=== PATIENT | male | born 1985 | race Caucasian/White ===

== ENCOUNTER 2019-11-08 16:20 | Observation (INO) | payer SELFPAY ==
[~2019-11-08] VITALS: Ht 175.3 cm; Wt 95.1 kg
--- NOTE | 2019-11-08 21:36 | NUR ---
RECEIVED REPORT FROM BRIDGET DE JESUS.
--- NOTE | 2019-11-08 21:46 | NUR ---
PT ARRIVED TO THE FLOOR VIA STRETCHER AND AMBULATED OVER TO THE BED WITHOUT ASSISTANCE. VANCO IS INFUSING AT THIS TIME. ORIENTED PT TO CALL LIGHT. PRIMARY RN ENE IS CURRENTLY IN THE ROOM WITH THE PT AT THIS TIME.
--- NOTE | 2019-11-08 22:00 | NUR ---
VITALS DONE AND CHARTED. FRESH ICE WATER GIVEN. WEIGHT DONE. BEDSIDE TABLE AND CALL LIGHT IN REACH.
--- NOTE | 2019-11-08 23:00 | NUR ---
pt ARRIVED ON FLOOR 214. ABLE TO TRANSFER SELF TO BED. VANCO INFUSING. IV PATENT. ADMISSION INFORMATION GATHERED, ASSESSMENT DONE. pt ALERT AND ORIENT. LLE RED AND WARM COMPARED TO RLE. PITTING EDEMA. pt REQUESTED PRN FOR 4/10 PAIN, GIVEN (SEE MAR). ALL QUESTIONS ANSWERED CONCERNING DTaP INJECTION, VIS GIVEN. pt UP TO VOID AND BACK TO BED. LIMPED WHILE AMBULATING. pt INSTRUCTED TO CALL FOR ASSISTANCE TO AMBULATE. URINAL AT BEDSIDE. PROVIDED WITH SANDWICH BOX AND PHONE. VANCO INFUSION COMPLETED. IVF INFUSING PER ORDERS. CALL LIGHT WITHIN REACH.
--- NOTE | 2019-11-09 01:30 | NUR ---
IN TO DO VITALS AND ASSESSMENT. pt HAD VOID IN URINAL, EMPTIED. NO REQUESTS AT THIS TIME. STATED PAIN "IS OKAY RIGHT NOW" ASSESSMENT DONE. LLE WARMER THAN RLE. NO CHANGE IN SWELLING. CALL LIGHT WITHIN REACH.
--- NOTE | 2019-11-09 04:00 | NUR ---
ROUNDED ON pt. pt STATED "I'M HAVING TROUBLE GETTING COMFORTABLE" OFFERED PILLOWS AND BLANKETS, pt REFUSED. NO REQUESTS AT THIS TIME. CALL LIGHT WITHIN REACH.
--- NOTE | 2019-11-09 04:39 | NUR ---
pt ARRIVED THIS SHIFT. IV ABX & IVF. PRN PAIN MEDS X1. LLE ELEVATED, AREA MARKED. NPO @ MIDNIGHT. USES CALL LIGHT APPROPRIATELY.
--- NOTE | 2019-11-09 06:24 | NUR ---
pt LAYING IN BED. REPORTED HE DID NOT SLEEP WELL. STATED "THE PAIN COMES AND GOES DEPENDING ON IF I AM MOVING" REFUSED PAIN MEDS AT THIS TIME. VITALS AND I&O RECORDED. IV ABX INFUSING. NO REQUESTS AT THIS TIME. CALL LIGHT WITHIN REACH.
--- NOTE | 2019-11-09 07:56 | NUR ---
PATIENT LYING IN BED AWAKE. RESPIRATIONS EQUAL AND UNLABORED ON RA. NO REPORTS OF PAIN. CALL LIGHT IN REACH.
--- NOTE | 2019-11-09 09:37 | NUR ---
PT BROUGHT TO DAY SURGERY ROOM [address] MOTA, CONSENT OBTAINED, LOCAL GIVEN FLUID ASPIRATED AND SENT TO LAB, MEGAN DECKER TOOK PT BACK TO MED SURG, REPORT TO DAREK GILL
--- NOTE | 2019-11-09 09:38 | NUR ---
CALL FROM [facility], OR CHARGE, PATIENT HAD ASPIRATION DONE BY DR. MOTA. DR. KARLY SORIANO FOR PATIENT TO HAVE REGULAR DIET.
--- NOTE | 2019-11-09 10:17 | NUR ---
MED REC COMPLETE. PATIENT STATES HE DOES NOT TAKE ANY ROUTINE MEDICATIONS. OCCASIONALLY TAKES OTC PAIN MEDICATION.
--- NOTE | 2019-11-09 10:23 | NUR ---
PATIENT SITTING UP IN BED AWAKE. RESPIRATIONS EQUAL AND UNLABORED. REPORTS 4/10 PAIN IN LLE. REQUESTING PAIN MEDICATION. PATIENTS BREAKFAST ARRIVED IN ROOM. FAMILY MEMBER IN ROOM. IV ABX STARTED. CALL LIGHT IN ROOM.
--- NOTE | 2019-11-09 13:06 | NUR ---
PATIENT LYING BED ASLEEP. RESPIRATIONS EQUAL AND UNLABORED. CALL LIGHT IN REACH. LR RUNNING AT 75ML/HR.
--- NOTE | 2019-11-09 15:29 | NUR ---
PT ASSISTED TO CHAIR. FEET SOAKING PER ORDER. PT REPORTING PAIN OF 09/28. LR AT 75 INFUSING AND VANCO STARTED. CALL LIGHT AND PERSONAL ITEMS WITHIN REACH.
--- NOTE | 2019-11-09 16:09 | NUR ---
PATIENT UP IN CHAIR SOAKING FEET. NURSE SCRUBBED PTS FEET WITH HIBICLENSE BRUSH. ABX INFUSING. PT TOLERATING WELL. RESPIRATIONS EQUAL AND UNLABORED ON RA. PT REPORTS PAIN 1/10 IN LLE. DENIES PAIN MEDICATION. CALL LIGHT IN REACH.
--- NOTE | 2019-11-09 17:18 | NUR ---
PT JUST COMPLETED SHOWER INDEPENDENTLY. BACK IN BED WITH DINNER. DENEIS PAIN. LR @75 RESTARTED. CALL LIGHT IN REACH. DENIES NEEDS.
--- NOTE | 2019-11-09 17:23 | NUR ---
PATIENT HAD ASPIRATION OF LLE PROCEDURE THIS MORNING. PATIENT INFORMED OF GOUT DX. RECIEVED SOLUMEDROL IV WHICH PATIENT REPORTS LOWERED PAIN TO 1/10. 2 PLUS EDEMA IN LLE. PATIENT TOOK A SHOWER AD TRUDY AND NURSE SOAKED FEET AND SCRUBBED WITH HIBICLEANSE. PATIENT EXPECTED TO DISCHARGE IN THE AM.
--- NOTE | 2019-11-09 19:03 | NUR ---
RECEIVED REPORT FROM BRIDGET RUBIN. pt RESTING IN BED. VISITORS AT BEDSIDE. REPORT PAIN IS "FINE" DEMONSTRATED ABILITY TO MOVE LEG, ELEVATED. WHITEBOARD UPDATED. POSSESSIONS AND CALL LIGHT WITHIN REACH.
--- NOTE | 2019-11-09 21:28 | NUR ---
IN TO DO ASSESSMENT. pt REPORTED PAIN 09/28 STATED "IT'S MUCH BETTER." LLE EDEMATOUS, ELEVATED. MEDICATIONS GIVEN (SEE MAR). UPDATED ON PLAN OF CARE. PROVIDED FOOD. NO FURTHER REQUESTS AT THIS TIME. CALL LIGHT WITHIN REACH.
--- NOTE | 2019-11-09 22:29 | NUR ---
IV ABX INFUSING. NO REQUESTS AT THIS TIME. pt RESTING IN BED. POSSESSIONS AND CALL LIGHT WITHIN REACH.
--- NOTE | 2019-11-10 00:20 | NUR ---
CALL LIGHT ON. pt REQUESTED "SOMETHING FOR HEARTBURN" NIO ENTERED. PRN MED GIVEN (SEE MAR). pt DENIES OTHER NEEDS AT THIS TIME. URINAL EMPTIED. CALL LIGHT AND POSSESSIONS WITHIN REACH.
--- NOTE | 2019-11-10 02:10 | NUR ---
ROUNDED ON pt. RESTING IN BED, RESPIRATIONS REGULAR. CALL LIGHT WITHIN REACH.
--- NOTE | 2019-11-10 04:06 | NUR ---
ROUNDED ON pt. RESTING WITH EYES CLOSED, RESPIRATIONS REGULAR AND UNLABORED. CALL LIGHT WITHIN REACH.
--- NOTE | 2019-11-10 06:20 | NUR ---
ASSESSMENT DONE. LLE IMPROVED IN COLOR AND DECREASED SWELLING. pt DENIES PAIN AT THIS TIME. IV ABX INFUSING PER ORDERS (SEE MAR). VITALS AND I&O RECORDED. FRESH WATER PROVIDED. CALL LIGHT WITHIN REACH.
--- NOTE | 2019-11-10 06:21 | NUR ---
pt RESTED MOST OF NIGHT. EDEMA IN LLE DECREASED, ELEVATED. HAS NOT REQUESTED PAIN MEDS. VOIDING QS. IVF AND IV ABX. TOLERATING A REGULAR DIET. ASPRIATION SITE COVERED WITH BANDAID. USES CALL LIGHT APPROPRIATELY.
--- NOTE | 2019-11-10 07:35 | NUR ---
PT SITTING UP ON SIDE OF BED, A&OX4. PT DENIES PAIN AND OR NEEDS. PERSONAL SUPPLIES AND CALL LIGHT WITHIN REACH. NO NEEDS AT THIS TIME.
[2019-11-10] MEDS ORDERED: INDOMETHACIN25 MG PO (08:19)
--- NOTE | 2019-11-10 11:09 | NUR ---
PT SLEEPING AT THIS TIME, RESP EVEN AND NON LABORED. PERSONAL SUPPLIES AND CALL LIGHT WITHIN REACH. WILL COME BACK IN LITTLE WHILE TO SEE IF PT IS AWAKE HE HAS DISCHARGE ORDERS.
== END 2019-11-10 12:40 | disposition home or self-care (01) ==
LOC: ED 16:20 → MS 16:22
PROVIDERS: ADMIT Internal Medicine
DX: M10.9 Gout, unspecified (principal); L03.116 Cellulitis of left lower limb; F17.200 Nicotine dependence, unspecified, uncomplicated; Z87.828 Personal history of other (healed) physical injury and trauma; Z88.0 Allergy status to penicillin; Z79.899 Other long term (current) drug therapy
CPT/HCPCS: 36415; 73702; 76882; 80048; 80053; 82945; 83605; 83735; 85025; 85610; 85651; 85810; 86431; 89051; 89060; 90471; 90715; 93971; 96361; 96366; 96367; 96375; 96376; 99284-25; G0378; J0696; J2930; J3370; J7060; J7121; Q9967

== ENCOUNTER 2020-01-31 20:30 | Inpatient (IN) | payer OTHER ==
[~2020-01-31] VITALS: Ht 175.3 cm; Wt 88.0 kg
--- OUTSIDE RECORDS SUMMARY | ~2020-01-31 | XMS | Encounter Summary ---
Demographics + + + | Address | [address] | | | [place] [address] | + + + | Home Phone | | + + + | Preferred Language | Unknown | + + + | Marital Status | Unknown | + + + | Hinduism Affiliation | Unknown | + + + | Race | Unknown | + + + | Ethnic Group | Unknown | + + + Author + + + | Author | [facility] | | | and [place] | + + + | Organization | [facility] | | | and [place] | + + + | Address | Unknown | + + + | Phone | Unavailable | + + + Support + + +---------+ + | Name | Relationship | Address | Phone | + + +---------+ + | Mirta Chamberlain | ECON | Unknown | | + + +---------+ + | Rachel Vanessa | ECON | Unknown | | + + +---------+ + Care Team Providers + +------+ + | Care Gas Leak Inspector Name | Role | Phone | + +------+ + | Chance Canales | PCP | | + +------+ + Encounter Details +--------+--------+ + + + | Date | Type | Department | Care Team | Description | +--------+--------+ + + + | 11/30/ | Intake | [facility] | | N/A | | 2019 | | [facility] [address] | | | | | | [facility] | | | | | | [place], [place] | | | | | | [address] | | | | | | [phone] | | | +--------+--------+ + + + Social History + +-------+ +--------+------+ | Tobacco Use | Types | Packs/Day | Years | Date | | | | | Used | | + +-------+ +--------+------+ | Never Assessed | | | | | + +-------+ +--------+------+ + + + | Sex Assigned at | Date Recorded | | | | + + + | Not on file | | + + + + + + + | Job Start Date | Occupation | Industry | + + + + | Not on file | Not on file | Not on file | + + + + + + + + | Travel History | Travel Start | Travel End | + + + + + + | No recent travel history available. | + + documented as of this encounter Plan of Treatment +--------+---------+ + + + | Date | Type | Specialty | Care Team | Description | +--------+---------+ + + + | 02/19/ | Office | Cardiology | Carol Landers | | | 2019 | Visit | | [address] | | | | | | [address] | | | | | | [address] [place], [place] | | | | | | [address] | | | | | | | | +--------+---------+ + + + documented as of this encounter Visit Diagnoses Not on filedocumented in this encounter Additional Health Concerns + + + + | Infection | Noted Time | Resolved Time | + + + + | Rule out COVID-19 | 12/02/2019 10:20 AM | 12/07/2019 2:43 PM | | | PDT | PDT | + + + + documented as of this encounter"
--- OUTSIDE RECORDS SUMMARY | ~2020-01-31 | XMS | Clinical Summary ---
Demographics + + + | Address | [address] | | | [place] [address] | + + + | Home Phone | | + + + | Preferred Language | Unknown | + + + | Marital Status | Unknown | + + + | Anabaptist Affiliation | Unknown | + + + | Race | Unknown | + + + | Ethnic Group | Unknown | + + + Author + + + | Author | [facility] | | | and [place] | + + + | Organization | [facility] | | | and [...] Team Providers + +------+ + | Care Electromechanical Equipment Tester Name | Role | Phone | + +------+ + | Chance Canales | PCP | | + +------+ + Allergies + + + + + + | Active Allergy | Reactions | Severity | Noted | Comments | | | | | Date | | + + + + + + | Penicillin G | Hives | Medium | 04/10/20 | | | | | | 20 | | + + + + + + Medications + + + +---------+------+------+-------+ | Medication | Sig | Dispensed | Refills | Star | End | Statu | | | | | | t | Date | s | | | | | | Date | | | + + + +---------+------+------+-------+ | albuterol 2.5 mg/3 | Take 3 mLs by | 360 | 1 | 04/1 | | Activ | | mL nebulizer | nebulization every | vial | | 0/20 | | e | | solution | hour as needed for | | | 20 | | | | | Wheezing or | | | | | | | | Shortness of Breath. | | | | | | + + + +---------+------+------+-------+ | ascorbic acid | Take 1 tablet by | 30 | 0 | 04/1 | | Activ | | (VITAMIN C) 500 mg | mouth Daily. | tablet | | /20 | | e | | tablet | | | | 20 | | | + + + +---------+------+------+-------+ +---+ + | | Additional | | | InformationPatient | | | not taking. Reported | | | on 01/23/2020 3:15 | | | PM | +---+ + + + +--------+---+------+---+-------+ | aspirin 81 mg | Chew and swallow 1 | 30 | 1 | 04 | | Activ | | chewable tablet | tablet Daily. | tablet | | 20 | | e | | | | | | 20 | | | + + +--------+---+------+---+-------+ +---+ + | | Additional | | | InformationPatient | | | not taking. Reported | | | on 01/23/2020 3:15 | | | PM | +---+ + + + +--------+---+------+---+-------+ | ferrous sulfate | Take 1 tablet by | 30 | 0 | 04/1 | | Activ | | 325 mg tablet | mouth daily (with | tablet | | 1/20 | | e | | | breakfast). | | | 20 | | | + + +--------+---+------+---+-------+ | oxyCODONE | Take 1 tablet by | 30 | 0 | 04/1 | | Activ | | (ROXICODONE) 5 mg | mouth every 6 hours | tablet | | 0/20 | | e | | tablet | as needed for Pain. | | | 20 | | | + + +--------+---+------+---+-------+ +---+ + | | Additional | | | InformationPatient | | | not taking. Reported | | | on 01/23/2020 3:15 | | | PM | +---+ + + + + +----+------+------+-------+ | warfarin | Take 1 tablet by | 30 | 11 | 04/1 | 04/1 | Activ | | (COUMADIN) 4 MG | mouth Daily. Take | tablet | | 0/20 | 0/20 | e | | tablet | Daily as directed to | | | 20 | 21 | | | | Keep INR between | | | | | | | | 2.5-3.5 for | | | | | | | | MECHANICAL mitral | | | | | | | | and Mechanical | | | | | | | | aortic valves. | | | | | | + + + +----+------+------+-------+ | metoprolol | Take 1 tablet by | 180 | 3 | 05/0 | | Activ | | succinate | mouth 2 times daily. | tablet | | 6/20 | | e | | (TOPROL-XL) 50 mg 24 | | | | 20 | | | | hr | | | | | | | | tabletIndications: | | | | | | | | Sinus tachycardia | | | | | | | + + + +----+------+------+-------+ | metoprolol | Take 1 tablet by | 90 | 1 | 04/1 | 05/0 | Disco | | tartrate (LOPRESSOR) | mouth 3 times daily. | tablet | | 0/20 | 6/20 | ntinu | | 37.5 mg tablet | | | | 20 | 20 | ed | + + + +----+------+------+-------+ | Vancomycin HCl in | Inject 1 g into the | [id number] | 0 | 04/1 | 05/0 | Expir | | NaCl (VANCOMYCIN IN | vein every 8 hours | mL | | 0/20 | 2/20 | ed | | SALINE) 1 g/250 mL | for 22 days. | | | 20 | 20 | | | IVPBIndications: | Indications: | | | | | | | Meningitis | Meningitis | | | | | | + + + +----+------+------+-------+ | metoprolol | take 3 tablets by | | 0 | 05/0 | 05/0 | Disco | | succinate | mouth once daily | | | 1/20 | 6/20 | ntinu | | (TOPROL-XL) 25 mg 24 | | | | 20 | 20 | ed | | hr tablet | | | | | | (Reor | | | | | | | | leandro) | + + + +----+------+------+-------+ Active Problems + + + | Problem | Noted Date | + + + | Muscular deconditioning | 01/14/2020 | + + + | Anticoagulated | 01/14/2020 | + + + + + | Overview: Due to mechanical heart valves | + + + + + | Tachycardia | 12/28/2019 | + + + | Severe protein-calorie malnutrition | 12/21/2019 | + + + | Pericardial effusion | 12/14/2019 | + + + + + | Overview: Added automatically from request for surgery | | [id number] | + + + + + | Encounter for observation for suspected exposure to other | 12/07/2019 | | biological agents ruled out | | + + + | Bacteremia due to other bacteria-Aerococcus urinae | 12/05/2019 | + + + | Anemia | 12/03/2019 | + + + | Thrombocytopenia | 12/03/2019 | + + + | Acute hypoxemic respiratory failure | 12/01/2019 | + + + | Metabolic acidosis | 12/01/2019 | + + + | Meningitis | 12/01/2019 | + + + | Endocarditis, unspecified chronicity, unspecified endocarditis | 12/01/2019 | | type | | + + + + + | Overview: Added automatically from request for surgery | | [id number] | + + + + + | Acute bacterial endocarditis | 12/01/2019 | + + + + + | Overview: Added automatically from request for surgery | | [id number] | + + + + + | Transient complete heart block | 12/01/2019 | + + + + + | Overview: Added automatically from request for surgery | | [id number] | + + Resolved Problems + + + + | Problem | Noted | Resolved | | | Date | Date | + + + + | Lactic acidosis | 12/01/19 | | | | 20 | 0 | + + + + Encounters +--------+ + + + + | Date | Type | Specialty | Care Team | Description | +--------+ + + + + | 01/22/ | Office | Cardiology | Froilan Miller | Complete heart block | | 2020 | Visit | | MD Bryson | ([facility]) (Primary Dx); | | | | | | Sinus tachycardia; | | | | | | Endocarditis, | | | | | | unspecified | | | | | | chronicity, | | | | | | unspecified | | | | | | endocarditis type | +--------+ + + + + | 01/14/ | Office | Infectious Diseases | Nicole Lamas | Pericardial effusion | | 2019 | Visit | | Madelyn Valentin MD | (Primary Dx); | | | | | | Bacteremia due to | | | | | | other | | | | | | bacteria-Aerococcus | | | | | | urinae; Acute | | | | | | bacterial | | | | | | endocarditis | +--------+ + + + + | 01/14/ | Office | Cardiothoracic | Hari Gonzalez | S/P AVR (Primary | | 2019 | Visit | Surgery | PA | Dx); S/P MVR (mitral | | | | | | valve replacement); | | | | | | H/O heart valve | | | | | | replacement with | | | | | | mechanical valve | +--------+ + + + + | 01/13/ | Telephone | Cardiothoracic | Harsh Goodman MD | Follow-up(Procedure) | 2019 | | Surgery | | (appointment | | | | | | confirmation ) | +--------+ + + + + | 12/30/ | Telephone | Cardiothoracic | Harsh Goodman MD | Follow-up(Procedure) | | 2019 | | Surgery | | (AVR/MVR f/u post 2 | | | | | | day discharge) | +--------+ + + + + | 12/13/ | Anesthesia | | Sergio Gan MD | | | 2019 | Event | | | | +--------+ + + + + | 12/13/ | Surgery | | Harsh Goodman MD | SUB-XYPHOID | | 2019 | | | | PERICARDIAL WINDOW, | | | | | | RIGHT TUBE | | | | | | THORACSTOMY | +--------+ + + + + | 12/11/ | Telephone | Radiology | Ally, Froilan | Pre-Op | | 2020 | | | MD Bryson | | +--------+ + + + + | 12/07/ | Anesthesia | | Zach Hemphill MD | | | 2019 | Event | | | | +--------+ + + + + | 12/07/ | Surgery | | Harsh Goodman MD | REPLACEMENT / REPAIR | | 2019 | | | | VALVE AORTIC, | | | | | | REPLACEMENT / REPAIR | | | | | | VALVE MITRAL | +--------+ + + + + | 11/30/ | Hospital | Internal Medicine | Vickey Cook | Acute bacterial | | 2019 - | Encounter | | MD Rex Alberts, | endocarditis | | | | | MD Harsh | (Primary Dx); Acute | | 12/27/ | | | | hypoxemic | | 2019 | | | | respiratory failure | | | | | | ([facility]); Lactic | | | | | | acidosis; Bilateral | | | | | | pulmonary | | | | | | infiltrates on CXR; | | | | | | ARDS (adult | | | | | | respiratory distress | | | | | | syndrome) ([facility]); | | | | | | Gram positive | | | | | | septicemia ([facility]); | | | | | | Endocarditis, | | | | | | unspecified | | | | | | chronicity, | | | | | | unspecified | | | | | | endocarditis type; | | | | | | BARTENDER infection; | | | | | | Endocarditis, | | | | | | unspecified | | | | | | chronicity, | | | | | | unspecified | | | | | | endocarditis type; | | | | | | Acute bacterial | | | | | | endocarditis; | | | | | | Complete heart block | | | | | | ([facility]); Transient | | | | | | complete heart block | | | | | | ([facility]); Transient | | | | | | complete heart block | | | | | | ([facility]); Pericardial | | | | | | effusion | +--------+ + + + + | 11/30/ | Intake | | | N/A | | 2020 | | | | | +--------+ + + + + from Last 3 Months Immunizations + + + + | Name | Administration Dates | Next Due | + + + + | DTP (PED) | 05/04/1988, 02/15/1985, 1983, | | | | 1983, 1983 | | + + + + | HEP B, 3 DOSE | 06/24/1998, 05/06/1998 | | | (ADULT) | | | + + + + | Hep B (PED/ADOL) 3 | 12/23/1998 | | | DOSE | | | + + + + | INFLUENZA, | 07/26/2007 | | | UNSPECIFIED | | | | FORMULATION | | | + + + + | MMR, 2 DOSE | 05/06/1998, 08/18/1984 | | | (PED/ADULT) | | | + + + + | POLIOVIRUS,OPV | 05/04/1988, 02/15/1985, 1983, | | | (LIVE) | 1983 | | + + + + | TD PF (2 LF TETANUS) | 05/06/1998 | | | (ADOL/ADULT) | | | + + + + | TDAP, (ADOL/ADULT) | 11/08/2019 | | + + + + Social History + +-------+ +--------+ + | Tobacco Use | Types | Packs/Day | Years | Date | | | | | Used | | + +-------+ +--------+ + | Former Smoker | | | | Quit: 01/15/2012 | + +-------+ +--------+ + + +---+---+---+ | Smokeless Tobacco: | | | | | Never Used | | | | + +---+---+---+ + + +---------+ + | Alcohol Use | Drinks/Week | oz/Week | Comments | + + +---------+ + | Not Currently | | | | + + +---------+ + + + + | Sex Assigned at [...] recent travel history available. | + + Last Filed Vital Signs + + + + + | Vital Sign | Reading | Time Taken | Comments | + + + + + | Blood Pressure | 121/60 | 01/23/2020 3:11 PM | | | | | PDT | | + + + + + | Pulse | 134 | 01/23/2020 3:11 PM | | | | | PDT | | + + + + + | Temperature | 36.9 C (98.4 F) | 01/15/2020 3:15 PM | | | | | PDT | | + + + + + | Respiratory Rate | 16 | 01/15/2020 3:15 PM | | | | | PDT | | + + + + + | Oxygen Saturation | 100% | 01/23/2020 3:11 PM | | | | | PDT | | + + + + + | Inhaled Oxygen | - | - | | | Concentration | | | | + + + + + | Weight | 86.8 kg (191 lb 6.4 | 01/23/2020 3:11 PM | | | | oz) | PDT | | + + + + + | Height | 175.3 cm (5' 9") | 01/23/2020 3:11 PM | | | | | PDT | | + + + + + | Body Mass Index | 28.26 | 01/23/2020 3:11 PM | | | | | PDT | | + + + + + Plan of Treatment +--------+---------+ + + + | Date | Type | Specialty | Care Team | Description | +--------+---------+ + + + | 02/19/ | Office | Cardiology | Carol Landers | | | 2019 | Visit | | [address] | | | | | | [address] | | | | | | [address] [place], [place] | | | | | | [address] | | | | | | | | +--------+---------+ + + + + + + + + | Health Maintenance | Due Date | Last Done | Comments | + + + + + | Vaccine: Influenza | | 07/26/2007 | | | (Season Ended) | 0 | | | + + + + + | Vaccine: | | 11/08/2019, 05/06/1998, | | | Dtap/Tdap/Td (7 - | 0 | 05/04/1988, Additional history | | | Td) | | exists | | + + + + + Implants + +--------+-------+ +--------+--------+--------+ | Implanted | Type | Area | Manufacture | Device | Shelf | Model | | | | | r | | Expira | / | | | | | | Identi | tion | Serial | | | | | | fier | Date | / Lot | + +--------+-------+ +--------+--------+--------+ | Valve Mtrl On-X /29mm - | Mechan | N/A: | ON-X LIFE | | 06/08/ | ONXM-2 | | [id number]: Qty: 1 on | ical | Heart | TECHNOLOGIE | | 2022 | 04/16 | | 12/08/2019 by Harsh Goodman, | Heart | | S INC - | | | /[id number] | | MD at [facility] | Valve | | ONXL | | | 04 /NA | | [facility] | | | | | | | + +--------+-------+ +--------+--------+--------+ | Valve [place] Rot 23mm - | Mechan | N/A: | [facility] | | 06/30/ | [id number] | | [id number]: Qty: 1 on | ical | Heart | MEDICAL - | | 2019 | -756 | | 12/08/2019 by Harsh Goodman, | Heart | | STJU | | | /[id number] | | MD at [facility] | Valve | | | | | 000 | | [facility] | | | | | | /NA | + +--------+-------+ +--------+--------+--------+ | Patch Pericardial 2x5cm - | | | [facility] | | 12/31/ | [id number] | | SnaImplanted: Qty: 1 on | | | MEDICAL - | | 2019 | /NA | | 12/08/2019 by Harsh Goodman, | | | STJU | | | /[id number] | | MD at [facility] | | | | | | 227 | | [facility] | | | | | | | + +--------+-------+ +--------+--------+--------+ Procedures + +--------+ + + + | Procedure Name | Priori | Date/Time | Associated Diagnosis | Comments | | | ty | | | | + +--------+ + + + | ECG 12 LEAD | Routin | 01/23/2020 | Complete heart | Results for this | | | e | 3:16 PM | block (HCC) | procedure are in the | | | | PDT | | results section. | + +--------+ + + + | LABS - EXTERNAL SCAN | | 12/29/2019 | | Results for this | | | | 12:00 AM | | procedure are in the | | | | PDT | | results section. | + +--------+ + + + | VANCOMYCIN, TROUGH | Routin | 12/28/2019 | | Results for this | | | e | 5:09 AM | | procedure are in the | | | | PDT | | results section. | + +--------+ + + + | PROTIME INR | Routin | 12/28/2019 | | Results for this | | | e | 5:09 AM | | procedure are in the | | | | PDT | | results section. | + +--------+ + + + | PHOSPHORUS | HARRY | 12/28/2019 | | Results for this | | | | 5:09 AM | | procedure are in the | | | | PDT | | results section. | + +--------+ + + + | MAGNESIUM | HARRY | 12/28/2019 | | Results for this | | | | 5:09 AM | | procedure are in the | | | | PDT | | results section. | + +--------+ + + + | CBC WITH | HARRY | 12/28/2019 | | Results for this | | DIFFERENTIAL | | 5:09 AM | | procedure are in the | | | | PDT | | results section. | + +--------+ + + + | BASIC METABOLIC | HARRY | 12/28/2019 | | Results for this | | PANEL | | 5:09 AM | | procedure are in the | | | | PDT | | results section. | + +--------+ + + + | MAGNESIUM | STAT | 12/27/2019 | | Results for this | | | | 2:16 PM | | procedure are in the | | | | PDT | | results section. | + +--------+ + + + | POTASSIUM | STAT | 12/27/2019 | | Results for this | | | | 2:16 PM | | procedure are in the | | | | PDT | | results section. | + +--------+ + + + | VANCOMYCIN, TROUGH | HARRY | 12/27/2019 | | Results for this | | | | 4:18 AM | | procedure are in the | | | | PDT | | results section. | + +--------+ + + + | PTT | STAT | 12/27/2019 | | Results for this | | | | 4:18 AM | | procedure are in the | | | | PDT | | results section. | + +--------+ + + + | PROTIME INR | Routin | 12/27/2019 | | Results for this | | | e | 4:18 AM | | procedure are in the | | | | PDT | | results section. | + +--------+ + + + | PHOSPHORUS | HARRY | 12/27/2019 | | Results for this | | | | 4:18 AM | | procedure are in the | | | | PDT | | results section. | + +--------+ + + + | MAGNESIUM | HARRY | 12/27/2019 | | Results for this | | | | 4:18 AM | | procedure are in the | | | | PDT | | results section. | + +--------+ + + + | CBC WITH | HARRY | 12/27/2019 | | Results for this | | DIFFERENTIAL | | 4:18 AM | | procedure are in the | | | | PDT | | results section. | + +--------+ + + + | BASIC METABOLIC | HARRY | 12/27/2019 | | Results for this | | PANEL | | 4:18 AM | | procedure are in the | | | | PDT | | results section. | + +--------+ + + + | PTT | STAT | 12/26/2019 | | Results for this | | | | 5:48 PM | | procedure are in the | | | | PDT | | results section. | + +--------+ + + + | PTT | STAT | 12/26/2019 | | Results for this | | | | 11:56 AM | | procedure are in the | | | | PDT | | results section. | + +--------+ + + + | MAGNESIUM | STAT | 12/26/2019 | | Results for this | | | | 11:49 AM | | procedure are in the | | | | PDT | | results section. | + +--------+ + + + | POTASSIUM | Routin | 12/26/2019 | | Results for this | | | e | 11:49 AM | | procedure are in the | | | | PDT | | results section. | + +--------+ + + + | VANCOMYCIN, TROUGH | Routin | 12/26/2019 | | Results for this | | | e | 5:36 AM | | procedure are in the | | | | PDT | | results section. | + +--------+ + + + | PTT | STAT | 12/26/2019 | | Results for this | | | | 5:36 AM | | procedure are in the | | | | PDT | | results section. | + +--------+ + + + | PROTIME INR | Routin | 12/26/2019 | | Results for this | | | e | 5:36 AM | | procedure are in the | | | | PDT | | results section. | + +--------+ + + + | PHOSPHORUS | HARRY | 12/26/2019 | | Results for this | | | | 5:36 AM | | procedure are in the | | | | PDT | | results section. | + +--------+ + + + | MAGNESIUM | HARRY | 12/26/2019 | | Results for this | | | | 5:36 AM | | procedure are in the | | | | PDT | | results section. | + +--------+ + + + | CBC WITH | HARRY | 12/26/2019 | | Results for this | | DIFFERENTIAL | | 5:36 AM | | procedure are in the | | | | PDT | | results section. | + +--------+ + + + | BASIC METABOLIC | HARRY | 12/26/2019 | | Results for this | | PANEL | | 5:36 AM | | procedure are in the | | | | PDT | | results section. | + +--------+ + + + | PTT | Routin | 12/25/2019 | | Results for this | | | e | 9:03 PM | | procedure are in the | | | | PDT | | results section. | + +--------+ + + + | MAGNESIUM | Routin | 12/25/2019 | | Results for this | | | e | 1:22 PM | | procedure are in the | | | | PDT | | results section. | + +--------+ + + + | POTASSIUM | Routin | 12/25/2019 | | Results for this | | | e | 1:22 PM | | procedure are in the | | | | PDT | | results section. | + +--------+ + + + | PTT | STAT | 12/25/2019 | | Results for this | | | | 1:22 PM | | procedure are in the | | | | PDT | | results section. | + +--------+ + + + | ECHO LIMITED | Routin | 12/25/2019 | | Results for this | | | e | 9:04 AM | | procedure are in the | | | | PDT | | results section. | + +--------+ + + + | XR CHEST PA AND | Routin | 12/25/2019 | | Results for this | | LATERAL | e | 7:45 AM | | procedure are in the | | | | PDT | | results section. | + +--------+ + + + | VANCOMYCIN, TROUGH | Add-On | 12/25/2019 | | Results for this | | | | 5:20 AM | | procedure are in the | | | | PDT | | results section. | + +--------+ + + + | PTT | Routin | 12/25/2019 | | Results for this | | | e | 5:20 AM | | procedure are in the | | | | PDT | | results section. | + +--------+ + + + | PROTIME INR | Routin | 12/25/2019 | | Results for this | | | e | 5:20 AM | | procedure are in the | | | | PDT | | results section. | + +--------+ + + + | PHOSPHORUS | HARRY | 12/25/2019 | | Results for this | | | | 5:20 AM | | procedure are in the | | | | PDT | | results section. | + +--------+ + + + | MAGNESIUM | HARRY | 12/25/2019 | | Results for this | | | | 5:20 AM | | procedure are in the | | | | PDT | | results section. | + +--------+ + + + | CBC WITH | HARRY | 12/25/2019 | | Results for this | | DIFFERENTIAL | | 5:20 AM | | procedure are in the | | | | PDT | | results section. | + +--------+ + + + | BASIC METABOLIC | HARRY | 12/25/2019 | | Results for this | | PANEL | | 5:20 AM | | procedure are in the | | | | PDT | | results section. | + +--------+ + + + | POTASSIUM | Timed | 12/24/2019 | | Results for this | | | | 9:03 AM | | procedure are in the | | | | PDT | | results section. | + +--------+ + + + | MAGNESIUM | Timed | 12/24/2019 | | Results for this | | | | 9:03 AM | | procedure are in the | | | | PDT | | results section. | + +--------+ + + + | VANCOMYCIN, TROUGH | HARRY | 12/24/2019 | | Results for this | | | | 5:44 AM | | procedure are in the | | | | PDT | | results section. | + +--------+ + + + | XR CHEST AP PORTABLE | Routin | 12/24/2019 | | Results for this | | | e | 5:30 AM | | procedure are in the | | | | PDT | | results section. | + +--------+ + + + | PTT | Routin | 12/24/2019 | | Results for this | | | e | 4:09 AM | | procedure are in the | | | | PDT | | results section. | + +--------+ + + + | PROTIME INR | Routin | 12/24/2019 | | Results for this | | | e | 4:09 AM | | procedure are in the | | | | PDT | | results section. | + +--------+ + + + | PHOSPHORUS | HARRY | 12/24/2019 | | Results for this | | | | 4:09 AM | | procedure are in the | | | | PDT | | results section. | + +--------+ + + + | MAGNESIUM | HARRY | 12/24/2019 | | Results for this | | | | 4:09 AM | | procedure are in the | | | | PDT | | results section. | + +--------+ + + + | CBC WITH | HARRY | 12/24/2019 | | Results for this | | DIFFERENTIAL | | 4:09 AM | | procedure are in the | | | | PDT | | results section. | + +--------+ + + + | BASIC METABOLIC | HARRY | 12/24/2019 | | Results for this | | PANEL | | 4:09 AM | | procedure are in the | | | | PDT | | results section. | + +--------+ + + + | XR CHEST AP PORTABLE | Routin | 12/23/2019 | | Results for this | | | e | 6:03 AM | | procedure are in the | | | | PDT | | results section. | + +--------+ + + + | VANCOMYCIN, TROUGH | HARRY | 12/23/2019 | | Results for this | | | | 5:12 AM | | procedure are in the | | | | PDT | | results section. | + +--------+ + + + | PTT | Routin | 12/23/2019 | | Results for this | | | e | 3:48 AM | | procedure are in the | | | | PDT | | results section. | + +--------+ + + + | PROTIME INR | Routin | 12/23/2019 | | Results for this | | | e | 3:48 AM | | procedure are in the | | | | PDT | | results section. | + +--------+ + + + | PHOSPHORUS | HARRY | 12/23/2019 | | Results for this | | | | 3:48 AM | | procedure are in the | | | | PDT | | results section. | + +--------+ + + + | MAGNESIUM | HARRY | 12/23/2019 | | Results for this | | | | 3:48 AM | | procedure are in the | | | | PDT | | results section. | + +--------+ + + + | CBC WITH | HARRY | 12/23/2019 | | Results for this | | DIFFERENTIAL | | 3:48 AM | | procedure are in the | | | | PDT | | results section. | + +--------+ + + + | BASIC METABOLIC | HARRY | 12/23/2019 | | Results for this | | PANEL | | 3:48 AM | | procedure are in the | | | | PDT | | results section. | + +--------+ + + + | PTT | Routin | 12/22/2019 | | Results for this | | | e | 9:26 PM | | procedure are in the | | | | PDT | | results section. | + +--------+ + + + | POTASSIUM | Routin | 12/22/2019 | | Results for this | | | e | 2:58 PM | | procedure are in the | | | | PDT | | results section. | + +--------+ + + + | MAGNESIUM | Routin | 12/22/2019 | | Results for this | | | e | 2:58 PM | | procedure are in the | | | | PDT | | results section. | + +--------+ + + + | PTT | Routin | 12/22/2019 | | Results for this | | | e | 2:58 PM | | procedure are in the | | | | PDT | | results section. | + +--------+ + + + | PHOSPHORUS | Routin | 12/22/2019 | | Results for this | | | e | 6:14 AM | | procedure are in the | | | | PDT | | results section. | + +--------+ + + + | BASIC METABOLIC | Routin | 12/22/2019 | | Results for this | | PANEL | e | 6:14 AM | | procedure are in the | | | | PDT | | results section. | + +--------+ + + + | PTT | STAT | 12/22/2019 | | Results for this | | | | 6:14 AM | | procedure are in the | | | | PDT | | results section. | + +--------+ + + + | PROTIME INR | Routin | 12/22/2019 | | Results for this | | | e | 6:14 AM | | procedure are in the | | | | PDT | | results section. | + +--------+ + + + | MAGNESIUM | Routin | 12/22/2019 | | Results for this | | | e | 6:14 AM | | procedure are in the | | | | PDT | | results section. | + +--------+ + + + | CBC WITH | Routin | 12/22/2019 | | Results for this | | DIFFERENTIAL | e | 6:14 AM | | procedure are in the | | | | PDT | | results section. | + +--------+ + + + | XR CHEST AP PORTABLE | Routin | 12/22/2019 | | Results for this | | | e | 5:47 AM | | procedure are in the | | | | PDT | | results section. | + +--------+ + + + | PTT | STAT | 12/21/2019 | | Results for this | | | | 9:58 PM | | procedure are in the | | | | PDT | | results section. | + +--------+ + + + | PTT | STAT | 12/21/2019 | | Results for this | | | | 2:24 PM | | procedure are in the | | | | PDT | | results section. | + +--------+ + + + | POTASSIUM | STAT | 12/21/2019 | | Results for this | | | | 9:37 AM | | procedure are in the | | | | PDT | | results section. | + +--------+ + + + | XR CHEST AP PORTABLE | Routin | 12/21/2019 | | Results for this | | | e | 5:37 AM | | procedure are in the | | | | PDT | | results section. | + +--------+ + + + | DEXTER, TROUGH | [facility] | 12/21/2019 | | Results for this | | | | 4:53 AM | | procedure are in the | | | | PDT | | results section. | + +--------+ + + + | PROTIME INR | Routin | 12/21/2019 | | Results for this | | | e | 4:53 AM | | procedure are in the | | | | PDT | | results section. | + +--------+ + + + | PHOSPHORUS | [facility] | 12/21/2019 | | Results for this | | | | 4:53 AM | | procedure are in the | | | | PDT | | results section. | + +--------+ + + + | MAGNESIUM | [facility] | 12/21/2019 | | Results for this | | | | 4:53 AM | | procedure are in the | | | | PDT | | results section. | + +--------+ + + + | CBC WITH | [facility] | 12/21/2019 | | Results for this | | DIFFERENTIAL | | 4:53 AM | | procedure are in the | | | | PDT | | results section. | + +--------+ + + + | BASIC METABOLIC | [facility] | 12/21/2019 | | Results for this | | PANEL | | 4:53 AM | | procedure are in the | | | | PDT | | results section. | + +--------+ + + + | POTASSIUM | STAT | 12/20/2019 | | Results for this | | | | 11:46 AM | | procedure are in the | | | | PDT | | results section. | + +--------+ + + + | PTT | STAT | 12/20/2019 | | Results for this | | | | 11:46 AM | | procedure are in the | | | | PDT | | results section. | + +--------+ + + + | FL VIDEO SWALLOW W | Routin | 12/20/2019 | | Results for this | | SPEECH | e | 11:30 AM | | procedure are in the | | | | PDT | | results section. | + +--------+ + + + | XR CHEST AP PORTABLE | Routin | 12/20/2019 | | Results for this | | | e | 5:12 AM | | procedure are in the | | | | PDT | | results section. | + +--------+ + + + | PTT | STAT | 12/20/2019 | | Results for this | | | | 2:58 AM | | procedure are in the | | | | PDT | | results section. | + +--------+ + + + | PROTIME INR | Routin | 12/20/2019 | | Results for this | | | e | 2:58 AM | | procedure are in the | | | | PDT | | results section. | + +--------+ + + + | PHOSPHORUS | [facility] | 12/20/2019 | | Results for this | | | | 2:58 AM | | procedure are in the | | | | PDT | | results section. | + +--------+ + + + | MAGNESIUM | [facility] | 12/20/2019 | | Results for this | | | | 2:58 AM | | procedure are in the | | | | PDT | | results section. | + +--------+ + + + | CBC WITH | [facility] | 12/20/2019 | | Results for this | | DIFFERENTIAL | | 2:58 AM | | procedure are in the | | | | PDT | | results section. | + +--------+ + + + | BASIC METABOLIC | [facility] | 12/20/2019 | | Results for this | | PANEL | | 2:58 AM | | procedure are in the | | | | PDT | | results section. | + +--------+ + + + | PTT | STAT | 12/19/2019 | | Results for this | | | | 8:52 PM | | procedure are in the | | | | PDT | | results section. | + +--------+ + + + | PTT | STAT | 12/19/2019 | | Results for this | | | | 11:34 AM | | procedure are in the | | | | PDT | | results section. | + +--------+ + + + | XR CHEST AP PORTABLE | Routin | 12/19/2019 | | Results for this | | | e | 5:35 AM | | procedure are in the | | | | PDT | | results section. | + +--------+ + + + | VANCOMYCIN, TROUGH | [facility] | 12/19/2019 | | Results for this | | | | 4:10 AM | | procedure are in the | | | | PDT | | results section. | + +--------+ + + + | PTT | STAT | 12/19/2019 | | Results for this | | | | 4:10 AM | | procedure are in the | | | | PDT | | results section. | + +--------+ + + + | PROTIME INR | Routin | 12/19/2019 | | Results for this | | | e | 4:10 AM | | procedure are in the | | | | PDT | | results section. | + +--------+ + + + | PHOSPHORUS | [facility] | 12/19/2019 | | Results for this | | | | 4:10 AM | | procedure are in the | | | | PDT | | results section. | + +--------+ + + + | MAGNESIUM | [facility] | 12/19/2019 | | Results for this | | | | 4:10 AM | | procedure are in the | | | | PDT | | results section. | + +--------+ + + + | CBC WITH | [facility] | 12/19/2019 | | Results for this | | DIFFERENTIAL | | 4:10 AM | | procedure are in the | | | | PDT | | results section. | + +--------+ + + + | BASIC METABOLIC | [facility] | 12/19/2019 | | Results for this | | PANEL | | 4:10 AM | | procedure are in the | | | | PDT | | results section. | + +--------+ + + + | XR CHEST AP PORTABLE | Routin | 12/18/2019 | | Results for this | | | e | 5:10 AM | | procedure are in the | | | | PDT | | results section. | + +--------+ + + + | PTT | Routin | 12/18/2019 | | Results for this | | | e | 3:19 AM | | procedure are in the | | | | PDT | | results section. | + +--------+ + + + | PROTIME INR | Routin | 12/18/2019 | | Results for this | | | e | 3:19 AM | | procedure are in the | | | | PDT | | results section. | + +--------+ + + + | PHOSPHORUS | [facility] | 12/18/2019 | | Results for this | | | | 3:19 AM | | procedure are in the | | | | PDT | | results section. | + +--------+ + + + | MAGNESIUM | [facility] | 12/18/2019 | | Results for this | | | | 3:19 AM | | procedure are in the | | | | PDT | | results section. | + +--------+ + + + | CBC WITH | [facility] | 12/18/2019 | | Results for this | | DIFFERENTIAL | | 3:19 AM | | procedure are in the | | | | PDT | | results section. | + +--------+ + + + | BASIC METABOLIC | [facility] | 12/18/2019 | | Results for this | | PANEL | | 3:19 AM | | procedure are in the | | | | PDT | | results section. | + +--------+ + + + | MRI BRAIN WO | Routin | 12/17/2019 | | Results for this | | CONTRAST | e | 9:11 PM | | procedure are in the | | | | PDT | | results section. | + +--------+ + + + | VANCOMYCIN, TROUGH | [facility] | 12/17/2019 | | Results for this | | | | 5:16 PM | | procedure are in the | | | | PDT | | results section. | + +--------+ + + + | PTT | STAT | 12/17/2019 | | Results for this | | | | 10:48 AM | | procedure are in the | | | | PDT | | results section. | + +--------+ + + + | PTT | STAT | 12/17/2019 | | Results for this | | | | 4:17 AM | | procedure are in the | | | | PDT | | results section. | + +--------+ + + + | PROTIME INR | Routin | 12/17/2019 | | Results for this | | | e | 4:17 AM | | procedure are in the | | | | PDT | | results section. | + +--------+ + + + | PHOSPHORUS | [facility] | 12/17/2019 | | Results for this | | | | 4:17 AM | | procedure are in the | | | | PDT | | results section. | + +--------+ + + + | MAGNESIUM | [facility] | 12/17/2019 | | Results for this | | | | 4:17 AM | | procedure are in the | | | | PDT | | results section. | + +--------+ + + + | CBC WITH | [facility] | 12/17/2019 | | Results for this | | DIFFERENTIAL | | 4:17 AM | | procedure are in the | | | | PDT | | results section. | + +--------+ + + + | BASIC METABOLIC | [facility] | 12/17/2019 | | Results for this | | PANEL | | 4:17 AM | | procedure are in the | | | | PDT | | results section. | + +--------+ + + + | XR CHEST AP PORTABLE | Routin | 12/17/2019 | | Results for this | | | e | 4:00 AM | | procedure are in the | | | | PDT | | results section. | + +--------+ + + + | POTASSIUM | STAT | 12/16/2019 | | Results for this | | | | 8:25 PM | | procedure are in the | | | | PDT | | results section. | + +--------+ + + + | MAGNESIUM | STAT | 12/16/2019 | | Results for this | | | | 8:25 PM | | procedure are in the | | | | PDT | | results section. | + +--------+ + + + | PTT | STAT | 12/16/2019 | | Results for this | | | | 8:25 PM | | procedure are in the | | | | PDT | | results section. | + +--------+ + + + | VANCOMYCIN, TROUGH | [facility] | 12/16/2019 | | Results for this | | | | 4:55 PM | | procedure are in the | | | | PDT | | results section. | + +--------+ + + + | PTT | STAT | 12/16/2019 | | Results for this | | | | 12:47 PM | | procedure are in the | | | | PDT | | results section. | + +--------+ + + + | XR CHEST AP PORTABLE | Routin | 12/16/2019 | | Results for this | | | e | 4:55 AM | | procedure are in the | | | | PDT | | results section. | + +--------+ + + + | PROTIME INR | Add-On | 12/16/2019 | | Results for this | | | | 3:54 AM | | procedure are in the | | | | PDT | | results section. | + +--------+ + + + | PTT | STAT | 12/16/2019 | | Results for this | | | | 3:54 AM | | procedure are in the | | | | PDT | | results section. | + +--------+ + + + | PHOSPHORUS | [facility] | 12/16/2019 | | Results for this | | | | 3:53 AM | | procedure are in the | | | | PDT | | results section. | + +--------+ + + + | MAGNESIUM | [facility] | 12/16/2019 | | Results for this | | | | 3:53 AM | | procedure are in the | | | | PDT | | results section. | + +--------+ + + + | CBC WITH | [facility] | 12/16/2019 | | Results for this | | DIFFERENTIAL | | 3:53 AM | | procedure are in the | | | | PDT | | results section. | + +--------+ + + + | BASIC METABOLIC | [facility] | 12/16/2019 | | Results for this | | PANEL | | 3:53 AM | | procedure are in the | | | | PDT | | results section. | + +--------+ + + + | VANCOMYCIN, TROUGH | [facility] | 12/16/2019 | | Results for this | | | | 12:45 AM | | procedure are in the | | | | PDT | | results section. | + +--------+ + + + | POC GLUCOSE (NON | Routin | 12/16/2019 | | Results for this | | ORD) | e | 12:41 AM | | procedure are in the | | | | PDT | | results section. | + +--------+ + + + | PTT | Routin | 12/15/2019 | | Results for this | | | e | 10:33 PM | | procedure are in the | | | | PDT | | results section. | + +--------+ + + + | POC GLUCOSE (NON | Routin | 12/15/2019 | | Results for this | | ORD) | e | 5:59 PM | | procedure are in the | | | | PDT | | results section. | + +--------+ + + + | POTASSIUM | Routin | 12/15/2019 | | Results for this | | | e | 3:45 PM | | procedure are in the | | | | PDT | | results section. | + +--------+ + + + | DUANE RENTERIA | [facility] | 12/15/2019 | | Results for this | | | | 3:45 PM | | procedure are in the | | | | PDT | | results section. | + +--------+ + + + | PTT | STAT | 12/15/2019 | | Results for this | | | | 3:45 PM | | procedure are in the | | | | PDT | | results section. | + +--------+ + + + | POC GLUCOSE (NON | Routin | 12/15/2019 | | Results for this | | ORD) | e | 11:56 AM | | procedure are in the | | | | PDT | | results section. | + +--------+ + + + | CBC NO DIFFERENTIAL | STAT | 12/15/2019 | | Results for this | | | | 9:15 AM | | procedure are in the | | | | PDT | | results section. | + +--------+ + + + | PROTIME INR | STAT | 12/15/2019 | | Results for this | | | | 9:15 AM | | procedure are in the | | | | PDT | | results section. | + +--------+ + + + | PTT | STAT | 12/15/2019 | | Results for this | | | | 9:15 AM | | procedure are in the | | | | PDT | | results section. | + +--------+ + + + | POC GLUCOSE (NON | Routin | 12/15/2019 | | Results for this | | ORD) | e | 7:32 AM | | procedure are in the | | | | PDT | | results section. | + +--------+ + + + | POC GLUCOSE (NON | Routin | 12/15/2019 | | Results for this | | ORD) | e | 5:42 AM | | procedure are in the | | | | PDT | | results section. | + +--------+ + + + | XR CHEST AP PORTABLE | Routin | 12/15/2019 | | Results for this | | | e | 4:55 AM | | procedure are in the | | | | PDT | | results section. | + +--------+ + + + | PHOSPHORUS | [facility] | 12/15/2019 | | Results for this | | | | 3:30 AM | | procedure are in the | | | | PDT | | results section. | + +--------+ + + + | MAGNESIUM | [facility] | 12/15/2019 | | Results for this | | | | 3:30 AM | | procedure are in the | | | | PDT | | results section. | + +--------+ + + + | CBC WITH | [facility] | 12/15/2019 | | Results for this | | DIFFERENTIAL | | 3:30 AM | | procedure are in the | | | | PDT | | results section. | + +--------+ + + + | BASIC METABOLIC | [facility] | 12/15/2019 | | Results for this | | PANEL | | 3:30 AM | | procedure are in the | | | | PDT | | results section. | + +--------+ + + + | POTASSIUM | STAT | 12/14/2019 | | Results for this | | | | 11:45 PM | | procedure are in the | | | | PDT | | results section. | + +--------+ + + + | MAGNESIUM | STAT | 12/14/2019 | | Results for this | | | | 11:45 PM | | procedure are in the | | | | PDT | | results section. | + +--------+ + + + | POC GLUCOSE (NON | Routin | 12/14/2019 | | Results for this | | ORD) | e | 11:44 PM | | procedure are in the | | | | PDT | | results section. | + +--------+ + + + | MAGNESIUM | STAT | 12/14/2019 | | Results for this | | | | 6:57 PM | | procedure are in the | | | | PDT | | results section. | + +--------+ + + + | POTASSIUM | STAT | 12/14/2019 | | Results for this | | | | 6:57 PM | | procedure are in the | | | | PDT | | results section. | + +--------+ + + + | POC GLUCOSE (NON | Routin | 12/14/2019 | | Results for this | | ORD) | e | 5:42 PM | | procedure are in the | | | | PDT | | results section. | + +--------+ + + + | XR CHEST AP PORTABLE | [facility] | 12/14/2019 | | Results for this | | | | 2:24 PM | | procedure are in the | | | | PDT | | results section. | + +--------+ + + + | VANCOMYCIN LEVEL | [facility] | 12/14/2019 | | Results for this | | | | 2:19 PM | | procedure are in the | | | | PDT | | results section. | + +--------+ + + + | CULTURE, BODY FLUID | Routin | 12/14/2019 | Pericardial | Results for this | | STERILE | e | 1:50 PM | effusion | procedure are in the | | | | PDT | | results section. | + +--------+ + + + | CULTURE, BODY FLUID | Routin | 12/14/2019 | Pericardial | Results for this | | STERILE | e | 1:23 PM | effusion | procedure are in the | | | | PDT | | results section. | + +--------+ + + + | ANE ARTERIAL LINE | Routin | 12/14/2019 | | Results for this | | NOTE | e | 12:31 PM | | procedure are in the | | | | PDT | | results section. | + +--------+ + + + | CREATE PERICARDIAL | | 12/14/2019 | Pericardial | | | WINDOW | | 11:56 AM | effusion | | | | | PDT | | | + +--------+ + + + | POC GLUCOSE (NON | Routin | 12/14/2019 | | Results for this | | ORD) | e | 11:10 AM | | procedure are in the | | | | PDT | | results section. | + +--------+ + + + | PRODUCT: RBC | [facility] | 12/14/2019 | | Results for this | | | | 10:20 AM | | procedure are in the | | | | PDT | | results section. | + +--------+ + + + | TYPE AND SCREEN | STAT | 12/14/2019 | | Results for this | | | | 10:20 AM | | procedure are in the | | | | PDT | | results section. | + +--------+ + + + | POC GLUCOSE (NON | Routin | 12/14/2019 | | Results for this | | ORD) | e | 5:08 AM | | procedure are in the | | | | PDT | | results section. | + +--------+ + + + | PHOSPHORUS | [facility] | 12/14/2019 | | Results for this | | | | 5:02 AM | | procedure are in the | | | | PDT | | results section. | + +--------+ + + + | MAGNESIUM | [facility] | 12/14/2019 | | Results for this | | | | 5:02 AM | | procedure are in the | | | | PDT | | results section. | + +--------+ + + + | CBC WITH | [facility] | 12/14/2019 | | Results for this | | DIFFERENTIAL | | 5:02 AM | | procedure are in the | | | | PDT | | results section. | + +--------+ + + + | BASIC METABOLIC | [facility] | 12/14/2019 | | Results for this | | PANEL | | 5:02 AM | | procedure are in the | | | | PDT | | results section. | + +--------+ + + + | XR CHEST AP PORTABLE | Routin | 12/14/2019 | | Results for this | | | e | 4:41 AM | | procedure are in the | | | | PDT | | results section. | + +--------+ + + + | POC GLUCOSE (NON | Routin | 12/14/2019 | | Results for this | | ORD) | e | 12:19 AM | | procedure are in the | | | | PDT | | results section. | + +--------+ + + + | POC GLUCOSE (NON | Routin | 12/13/2019 | | Results for this | | ORD) | e | 10:12 PM | | procedure are in the | | | | PDT | | results section. | + +--------+ + + + | POTASSIUM | STAT | 12/13/2019 | | Results for this | | | | 7:56 PM | | procedure are in the | | | | PDT | | results section. | + +--------+ + + + | POC GLUCOSE (NON | Routin | 12/13/2019 | | Results for this | | ORD) | e | 5:28 PM | | procedure are in the | | | | PDT | | results section. | + +--------+ + + + | POTASSIUM | STAT | 12/13/2019 | | Results for this | | | | 1:30 PM | | procedure are in the | | | | PDT | | results section. | + +--------+ + + + | POC GLUCOSE (NON | Routin | 12/13/2019 | | Results for this | | ORD) | e | 11:14 AM | | procedure are in the | | | | PDT | | results section. | + +--------+ + + + | POC GLUCOSE (NON | Routin | 12/13/2019 | | Results for this | | ORD) | e | 11:12 AM | | procedure are in the | | | | PDT | | results section. | + +--------+ + + + | VANCOMYCIN LEVEL | [facility] | 12/13/2019 | | Results for this | | | | 10:31 AM | | procedure are in the | | | | PDT | | results section. | + +--------+ + + + | ECG 12 LEAD | [facility] | 12/13/2019 | | Results for this | | | | 10:17 AM | | procedure are in the | | | | PDT | | results section. | + +--------+ + + + | ECHO LIMITED | [facility] | 12/13/2019 | | Results for this | | | | 7:59 AM | | procedure are in the | | | | PDT | | results section. | + +--------+ + + + | VAS LOWER EXTREMITY | [facility] | 12/13/2019 | | Results for this | | VENOUS BILATERAL | | 6:11 AM | | procedure are in the | | | | PDT | | results section. | + +--------+ + + + | XR CHEST AP PORTABLE | Routin | 12/13/2019 | | Results for this | | | e | 5:30 AM | | procedure are in the | | | | PDT | | results section. | + +--------+ + + + | POC GLUCOSE (NON | Routin | 12/13/2019 | | Results for this | | ORD) | e | 5:13 AM | | procedure are in the | | | | PDT | | results section. | + +--------+ + + + | US ABDOMEN LIMITED | Routin | 12/13/2019 | | Results for this | | | e | 5:10 AM | | procedure are in the | | | | PDT | | results section. | + +--------+ + + + | PTT | STAT | 12/13/2019 | | Results for this | | | | 4:53 AM | | procedure are in the | | | | PDT | | results section. | + +--------+ + + + | TRIGLYCERIDES | Routin | 12/13/2019 | | Results for this | | | e | 4:53 AM | | procedure are in the | | | | PDT | | results section. | + +--------+ + + + | PHOSPHORUS | [facility] | 12/13/2019 | | Results for this | | | | 4:53 AM | | procedure are in the | | | | PDT | | results section. | + +--------+ + + + | MAGNESIUM | [facility] | 12/13/2019 | | Results for this | | | | 4:53 AM | | procedure are in the | | | | PDT | | results section. | + +--------+ + + + | CBC WITH | [facility] | 12/13/2019 | | Results for this | | DIFFERENTIAL | | 4:53 AM | | procedure are in the | | | | PDT | | results section. | + +--------+ + + + | BASIC METABOLIC | [facility] | 12/13/2019 | | Results for this | | PANEL | | 4:53 AM | | procedure are in the | | | | PDT | | results section. | + +--------+ + + + | TSH | Add-On | 12/13/2019 | | Results for this | | | | 12:30 AM | | procedure are in the | | | | PDT | | results section. | + +--------+ + + + | PHOSPHORUS | [facility] | 12/13/2019 | | Results for this | | | | 12:30 AM | | procedure are in the | | | | PDT | | results section. | + +--------+ + + + | MAGNESIUM | [facility] | 12/13/2019 | | Results for this | | | | 12:30 AM | | procedure are in the | | | | PDT | | results section. | + +--------+ + + + | POTASSIUM | [facility] | 12/13/2019 | | Results for this | | | | 12:30 AM | | procedure are in the | | | | PDT | | results section. | + +--------+ + + + | PTT | STAT | 12/13/2019 | | Results for this | | | | 12:30 AM | | procedure are in the | | | | PDT | | results section. | + +--------+ + + + | POC GLUCOSE (NON | Routin | 12/13/2019 | | Results for this | | ORD) | e | 12:28 AM | | procedure are in the | | | | PDT | | results section. | + +--------+ + + + | CT CHEST ABDOMEN | Routin | 12/12/2019 | | Results for this | | PELVIS W CONTRAST | e | 9:15 PM | | procedure are in the | | | | PDT | | results section. | + +--------+ + + + | POTASSIUM | STAT | 12/12/2019 | | Results for this | | | | 6:18 PM | | procedure are in the | | | | PDT | | results section. | + +--------+ + + + | PTT | STAT | 12/12/2019 | | Results for this | | | | 6:18 PM | | procedure are in the | | | | PDT | | results section. | + +--------+ + + + | POC GLUCOSE (NON | Routin | 12/12/2019 | | Results for this | | ORD) | e | 6:16 PM | | procedure are in the | | | | PDT | | results section. | + +--------+ + + + | PTT | STAT | 12/12/2019 | | Results for this | | | | 11:20 AM | | procedure are in the | | | | PDT | | results section. | + +--------+ + + + | POTASSIUM | STAT | 12/12/2019 | | Results for this | | | | 11:20 AM | | procedure are in the | | | | PDT | | results section. | + +--------+ + + + | VANCOMYCIN, TROUGH | [facility] | 12/12/2019 | | Results for this | | | | 11:20 AM | | procedure are in the | | | | PDT | | results section. | + +--------+ + + + | POC GLUCOSE (NON | Routin | 12/12/2019 | | Results for this | | ORD) | e | 11:16 AM | | procedure are in the | | | | PDT | | results section. | + +--------+ + + + | POC GLUCOSE (NON | Routin | 12/12/2019 | | Results for this | | ORD) | e | 8:54 AM | | procedure are in the | | | | PDT | | results section. | + +--------+ + + + | XR CHEST AP PORTABLE | Routin | 12/12/2019 | | Results for this | | | e | 5:33 AM | | procedure are in the | | | | PDT | | results section. | + +--------+ + + + | PTT | STAT | 12/12/2019 | | Results for this | | | | 5:25 AM | | procedure are in the | | | | PDT | | results section. | + +--------+ + + + | HEPATIC FUNCTION | Add-On | 12/12/2019 | | Results for this | | PANEL | | 4:14 AM | | procedure are in the | | | | PDT | | results section. | + +--------+ + + + | POC GLUCOSE (NON | Routin | 12/12/2019 | | Results for this | | ORD) | e | 4:14 AM | | procedure are in the | | | | PDT | | results section. | + +--------+ + + + | PHOSPHORUS | [facility] | 12/12/2019 | | Results for this | | | | 4:14 AM | | procedure are in the | | | | PDT | | results section. | + +--------+ + + + | MAGNESIUM | [facility] | 12/12/2019 | | Results for this | | | | 4:14 AM | | procedure are in the | | | | PDT | | results section. | + +--------+ + + + | CBC WITH | [facility] | 12/12/2019 | | Results for this | | DIFFERENTIAL | | 4:14 AM | | procedure are in the | | | | PDT | | results section. | + +--------+ + + + | BASIC METABOLIC | [facility] | 12/12/2019 | | Results for this | | PANEL | | 4:14 AM | | procedure are in the | | | | PDT | | results section. | + +--------+ + + + | URINALYSIS WITH | STAT | 12/12/2019 | | Results for this | | MICROSCOPIC IF | | 3:48 AM | | procedure are in the | | INDICATED | | PDT | | results section. | + +--------+ + + + | CULTURE, | STAT | 12/12/2019 | | Results for this | | RESPIRATORY, LOWER, | | 3:47 AM | | procedure are in the | | SMEAR | | PDT | | results section. | + +--------+ + + + | PTT | Timed | 12/11/2019 | | Results for this | | | | 11:50 PM | | procedure are in the | | | | PDT | | results section. | + +--------+ + + + | POC GLUCOSE (NON | Routin | 12/11/2019 | | Results for this | | ORD) | e | 10:59 PM | | procedure are in the | | | | PDT | | results section. | + +--------+ + + + | CULTURE, BLOOD | STAT | 12/11/2019 | | Results for this | | | | 10:53 PM | | procedure are in the | | | | PDT | | results section. | + +--------+ + + + | CULTURE, BLOOD | STAT | 12/11/2019 | | Results for this | | | | 10:48 PM | | procedure are in the | | | | PDT | | results section. | + +--------+ + + + | PTT | STAT | 12/11/2019 | | Results for this | | | | 4:53 PM | | procedure are in the | | | | PDT | | results section. | + +--------+ + + + | POC GLUCOSE (NON | Routin | 12/11/2019 | | Results for this | | ORD) | e | 4:52 PM | | procedure are in the | | | | PDT | | results section. | + +--------+ + + + | POC GLUCOSE (NON | Routin | 12/11/2019 | | Results for this | | ORD) | e | 12:33 PM | | procedure are in the | | | | PDT | | results section. | + +--------+ + + + | PTT | [facility] | 12/11/2019 | | Results for this | | | | 10:52 AM | | procedure are in the | | | | PDT | | results section. | + +--------+ + + + | ECG 12 LEAD | [facility] | 12/11/2019 | | Results for this | | | | 9:02 AM | | procedure are in the | | | | PDT | | results section. | + +--------+ + + + | POC GLUCOSE (NON | Routin | 12/11/2019 | | Results for this | | ORD) | e | 8:44 AM | | procedure are in the | | | | PDT | | results section. | + +--------+ + + + | XR CHEST AP PORTABLE | Routin | 12/11/2019 | | Results for this | | | e | 5:21 AM | | procedure are in the | | | | PDT | | results section. | + +--------+ + + + | MAGNESIUM | [facility] | 12/11/2019 | | Results for this | | | | 3:52 AM | | procedure are in the | | | | PDT | | results section. | + +--------+ + + + | PTT | STAT | 12/11/2019 | | Results for this | | | | 3:52 AM | | procedure are in the | | | | PDT | | results section. | + +--------+ + + + | PHOSPHORUS | [facility] | 12/11/2019 | | Results for this | | | | 3:52 AM | | procedure are in the | | | | PDT | | results section. | + +--------+ + + + | CBC WITH | [facility] | 12/11/2019 | | Results for this | | DIFFERENTIAL | | 3:52 AM | | procedure are in the | | | | PDT | | results section. | + +--------+ + + + | BASIC METABOLIC | [facility] | 12/11/2019 | | Results for this | | PANEL | | 3:52 AM | | procedure are in the | | | | PDT | | results section. | + +--------+ + + + | POC GLUCOSE (NON | Routin | 12/11/2019 | | Results for this | | ORD) | e | 3:50 AM | | procedure are in the | | | | PDT | | results section. | + +--------+ + + + | POTASSIUM | [facility] | 12/11/2019 | | Results for this | | | | 12:29 AM | | procedure are in the | | | | PDT | | results section. | + +--------+ + + + | MAGNESIUM | STAT | 12/10/2019 | | Results for this | | | | 11:15 PM | | procedure are in the | | | | PDT | | results section. | + +--------+ + + + | MAGNESIUM | Routin | 12/10/2019 | | Results for this | | | e | 10:56 PM | | procedure are in the | | | | PDT | | results section. | + +--------+ + + + | ECG 12 LEAD | STAT | 12/10/2019 | | Results for this | | | | 9:38 PM | | procedure are in the | | | | PDT | | results section. | + +--------+ + + + | POC GLUCOSE (NON | Routin | 12/10/2019 | | Results for this | | ORD) | e | 9:06 PM | | procedure are in the | | | | PDT | | results section. | + +--------+ + + + | POTASSIUM | [facility] | 12/10/2019 | | Results for this | | | | 9:05 PM | | procedure are in the | | | | PDT | | results section. | + +--------+ + + + | PTT | STAT | 12/10/2019 | | Results for this | | | | 9:05 PM | | procedure are in the | | | | PDT | | results section. | + +--------+ + + + | ECG 12 LEAD | STAT | 12/10/2019 | | Results for this | | | | 6:35 PM | | procedure are in the | | | | PDT | | results section. | + +--------+ + + + | POC GLUCOSE (NON | Routin | 12/10/2019 | | Results for this | | ORD) | e | 6:02 PM | | procedure are in the | | | | PDT | | results section. | + +--------+ + + + | PTT | STAT | 12/10/2019 | | Results for this | | | | 3:19 PM | | procedure are in the | | | | PDT | | results section. | + +--------+ + + + | PHOSPHORUS | STAT | 12/10/2019 | | Results for this | | | | 1:25 PM | | procedure are in the | | | | PDT | | results section. | + +--------+ + + + | MAGNESIUM | STAT | 12/10/2019 | | Results for this | | | | 1:25 PM | | procedure are in the | | | | PDT | | results section. | + +--------+ + + + | POTASSIUM | STAT | 12/10/2019 | | Results for this | | | | 1:25 PM | | procedure are in the | | | | PDT | | results section. | + +--------+ + + + | POC GLUCOSE (NON | Routin | 12/10/2019 | | Results for this | | ORD) | e | 1:16 PM | | procedure are in the | | | | PDT | | results section. | + +--------+ + + + | ECG 12 LEAD | STAT | 12/10/2019 | | Results for this | | | | 12:56 PM | | procedure are in the | | | | PDT | | results section. | + +--------+ + + + | [facility] PANEL | Routin | 12/10/2019 | | Results for this | | #[id number] | e | 12:00 PM | | procedure are in the | | | | PDT | | results section. | + +--------+ + + + | ECG 12 LEAD | STAT | 12/10/2019 | | Results for this | | | | 11:40 AM | | procedure are in the | | | | PDT | | results section. | + +--------+ + + + | POC GLUCOSE (NON | Routin | 12/10/2019 | | Results for this | | ORD) | e | 8:38 AM | | procedure are in the | | | | PDT | | results section. | + +--------+ + + + | POC GLUCOSE (NON | Routin | 12/10/2019 | | Results for this | | ORD) | e | 6:22 AM | | procedure are in the | | | | PDT | | results section. | + +--------+ + + + | XR CHEST AP PORTABLE | Routin | 12/10/2019 | | Results for this | | | e | 5:03 AM | | procedure are in the | | | | PDT | | results section. | + +--------+ + + + | POC GLUCOSE (NON | Routin | 12/10/2019 | | Results for this | | ORD) | e | 4:14 AM | | procedure are in the | | | | PDT | | results section. | + +--------+ + + + | PHOSPHORUS | [facility] | 12/10/2019 | | Results for this | | | | 4:10 AM | | procedure are in the | | | | PDT | | results section. | + +--------+ + + + | MAGNESIUM | [facility] | 12/10/2019 | | Results for this | | | | 4:10 AM | | procedure are in the | | | | PDT | | results section. | + +--------+ + + + | CBC WITH | [facility] | 12/10/2019 | | Results for this | | DIFFERENTIAL | | 4:10 AM | | procedure are in the | | | | PDT | | results section. | + +--------+ + + + | BASIC METABOLIC | [facility] | 12/10/2019 | | Results for this | | PANEL | | 4:10 AM | | procedure are in the | | | | PDT | | results section. | + +--------+ + + + | POC GLUCOSE (NON | Routin | 12/10/2019 | | Results for this | | ORD) | e | 2:14 AM | | procedure are in the | | | | PDT | | results section. | + +--------+ + + + | POTASSIUM | Routin | 12/10/2019 | | Results for this | | | e | 12:38 AM | | procedure are in the | | | | PDT | | results section. | + +--------+ + + + | POC GLUCOSE (NON | Routin | 12/10/2019 | | Results for this | | ORD) | e | 12:34 AM | | procedure are in the | | | | PDT | | results section. | + +--------+ + + + | POC GLUCOSE (NON | Routin | 12/09/2019 | | Results for this | | ORD) | e | 10:48 PM | | procedure are in the | | | | PDT | | results section. | + +--------+ + + + | POTASSIUM | Routin | 12/09/2019 | | Results for this | | | e | 8:47 PM | | procedure are in the | | | | PDT | | results section. | + +--------+ + + + | POC GLUCOSE (NON | Routin | 12/09/2019 | | Results for this | | ORD) | e | 8:36 PM | | procedure are in the | | | | PDT | | results section. | + +--------+ + + + | POC GLUCOSE (NON | Routin | 12/09/2019 | | Results for this | | ORD) | e | 6:20 PM | | procedure are in the | | | | PDT | | results section. | + +--------+ + + + | POTASSIUM | Routin | 12/09/2019 | | Results for this | | | e | 4:22 PM | | procedure are in the | | | | PDT | | results section. | + +--------+ + + + | POC GLUCOSE (NON | Routin | 12/09/2019 | | Results for this | | ORD) | e | 4:11 PM | | procedure are in the | | | | PDT | | results section. | + +--------+ + + + | POC GLUCOSE (NON | Routin | 12/09/2019 | | Results for this | | ORD) | e | 2:06 PM | | procedure are in the | | | | PDT | | results section. | + +--------+ + + + | POTASSIUM | Routin | 12/09/2019 | | Results for this | | | e | 11:59 AM | | procedure are in the | | | | PDT | | results section. | + +--------+ + + + | POC GLUCOSE (NON | Routin | 12/09/2019 | | Results for this | | ORD) | e | 11:51 AM | | procedure are in the | | | | PDT | | results section. | + +--------+ + + + | POC GLUCOSE (NON | Routin | 12/09/2019 | | Results for this | | ORD) | e | 9:14 AM | | procedure are in the | | | | PDT | | results section. | + +--------+ + + + | POTASSIUM | Routin | 12/09/2019 | | Results for this | | | e | 8:26 AM | | procedure are in the | | | | PDT | | results section. | + +--------+ + + + | PHOSPHORUS | STAT | 12/09/2019 | | Results for this | | | | 8:26 AM | | procedure are in the | | | | PDT | | results section. | + +--------+ + + + | POC GLUCOSE (NON | Routin | 12/09/2019 | | Results for this | | ORD) | e | 6:57 AM | | procedure are in the | | | | PDT | | results section. | + +--------+ + + + | PRODUCT: PLATELET | [facility] | 12/09/2019 | | Results for this | | PHERESIS, | | 6:36 AM | | procedure are in the | | LEUKOREDUCED | | PDT | | results section. | + +--------+ + + + | POC GLUCOSE (NON | Routin | 12/09/2019 | | Results for this | | ORD) | e | 6:11 AM | | procedure are in the | | | | PDT | | results section. | + +--------+ + + + | POC GLUCOSE (NON | Routin | 12/09/2019 | | Results for this | | ORD) | e | 5:06 AM | | procedure are in the | | | | PDT | | results section. | + +--------+ + + + | POC GLUCOSE (NON | Routin | 12/09/2019 | | Results for this | | ORD) | e | 4:10 AM | | procedure are in the | | | | PDT | | results section. | + +--------+ + + + | TRIGLYCERIDES | Routin | 12/09/2019 | | Results for this | | | e | 3:55 AM | | procedure are in the | | | | PDT | | results section. | + +--------+ + + + | PHOSPHORUS | [facility] | 12/09/2019 | | Results for this | | | | 3:55 AM | | procedure are in the | | | | PDT | | results section. | + +--------+ + + + | MAGNESIUM | [facility] | 12/09/2019 | | Results for this | | | | 3:55 AM | | procedure are in the | | | | PDT | | results section. | + +--------+ + + + | CBC WITH | [facility] | 12/09/2019 | | Results for this | | DIFFERENTIAL | | 3:55 AM | | procedure are in the | | | | PDT | | results section. | + +--------+ + + + | BASIC METABOLIC | [facility] | 12/09/2019 | | Results for this | | PANEL | | 3:55 AM | | procedure are in the | | | | PDT | | results section. | + +--------+ + + + | POC ISTAT, CG8, | Routin | 12/09/2019 | | Results for this | | ARTERIAL | e | 3:19 AM | | procedure are in the | | | | PDT | | results section. | + +--------+ + + + | POC GLUCOSE (NON | Routin | 12/09/2019 | | Results for this | | ORD) | e | 3:17 AM | | procedure are in the | | | | PDT | | results section. | + +--------+ + + + | TRANSFUSE RED BLOOD | Routin | 12/09/2019 | | | | CELLS | e | 2:35 AM | | | | | | PDT | | | + +--------+ + + + | TRANSFUSE RED BLOOD | Routin | 12/09/2019 | | | | CELLS | e | 2:13 AM | | | | | | PDT | | | + +--------+ + + + | TRANSFUSE RED BLOOD | Routin | 12/09/2019 | | | | CELLS | e | 2:13 AM | | | | | | PDT | | | + +--------+ + + + | TRANSFUSE PLATELETS | Routin | 12/09/2019 | | | | | e | 2:12 AM | | | | | | PDT | | | + +--------+ + + + | POC GLUCOSE (NON | Routin | 12/09/2019 | | Results for this | | ORD) | e | 2:01 AM | | procedure are in the | | | | PDT | | results section. | + +--------+ + + + | CALCIUM, IONIZED, | STAT | 12/09/2019 | | Results for this | | VENOUS | | 12:58 AM | | procedure are in the | | | | PDT | | results section. | + +--------+ + + + | HEMOGLOBIN A1C | Routin | 12/09/2019 | | Results for this | | | e | 12:56 AM | | procedure are in the | | | | PDT | | results section. | + +--------+ + + + | MAGNESIUM | [facility] | 12/09/2019 | | Results for this | | | | 12:56 AM | | procedure are in the | | | | PDT | | results section. | + +--------+ + + + | CBC WITH | [facility] | 12/09/2019 | | Results for this | | DIFFERENTIAL | | 12:56 AM | | procedure are in the | | | | PDT | | results section. | + +--------+ + + + | BASIC METABOLIC | [facility] | 12/09/2019 | | Results for this | | PANEL | | 12:56 AM | | procedure are in the | | | | PDT | | results section. | + +--------+ + + + | FIBRINOGEN | STAT | 12/09/2019 | | Results for this | | | | 12:56 AM | | procedure are in the | | | | PDT | | results section. | + +--------+ + + + | PTT | [facility] | 12/09/2019 | | Results for this | | | | 12:56 AM | | procedure are in the | | | | PDT | | results section. | + +--------+ + + + | PROTIME INR | [facility] | 12/09/2019 | | Results for this | | | | 12:56 AM | | procedure are in the | | | | PDT | | results section. | + +--------+ + + + | POC DANNA CG8, | Routin | 12/09/2019 | | Results for this | | ARTERIAL | e | 12:49 AM | | procedure are in the | | | | PDT | | results section. | + +--------+ + + + | POC GLUCOSE (NON | Routin | 12/09/2019 | | Results for this | | ORD) | e | 12:47 AM | | procedure are in the | | | | PDT | | results section. | + +--------+ + + + | XR CHEST AP PORTABLE | STAT | 12/09/2019 | | Results for this | | | | 12:44 AM | | procedure are in the | | | | PDT | | results section. | + +--------+ + + + | PRODUCT: PLATELET | [facility] | 12/09/2019 | | Results for this | | PHERESIS, | | 12:10 AM | | procedure are in the | | LEUKOREDUCED | | PDT | | results section. | + +--------+ + + + | PRODUCT: PLATELET | STAT | 12/09/2019 | | Results for this | | PHERESIS, | | 12:10 AM | | procedure are in the | | LEUKOREDUCED | | PDT | | results section. | + +--------+ + + + | ECHO TRANSESOPHAGEAL | Routin | 12/09/2019 | | Results for this | | (GURDEEP) | e | 12:09 AM | | procedure are in the | | | | PDT | | results section. | + +--------+ + + + | POC MARISA 4, ISTAT | Routin | 12/08/2019 | | Results for this | | ARTERIAL | e | 11:16 PM | | procedure are in the | | | | PDT | | results section. | + +--------+ + + + | CINTHIA AVALOS, | Routin | 12/08/2019 | | Results for this | | ARTERIAL | e | 11:11 PM | | procedure are in the | | | | PDT | | results section. | + +--------+ + + + | POC MARISA 4, ISTAT | Routin | 12/08/2019 | | Results for this | | ARTERIAL | e | 10:04 PM | | procedure are in the | | | | PDT | | results section. | + +--------+ + + + | CINTHIA AVALOS, | Routin | 12/08/2019 | | Results for this | | ARTERIAL | e | 9:59 PM | | procedure are in the | | | | PDT | | results section. | + +--------+ + + + | PRODUCT: PLATELET | Routin | 12/08/2019 | | Results for this | | PHERESIS, | e | 9:50 PM | | procedure are in the | | LEUKOREDUCED | | PDT | | results section. | + +--------+ + + + | PRODUCT: PLASMA, | Routin | 12/08/2019 | | Results for this | | FROZEN <24 | e | 9:50 PM | | procedure are in the | | | | PDT | | results section. | + +--------+ + + + | POC CINTHIA CLAY, | Routin | 12/08/2019 | | Results for this | | ARTERIAL | e | 9:25 PM | | procedure are in the | | | | PDT | | results section. | + +--------+ + + + | POC MARISA Gilbert, ISDOROTEO | Routin | 12/08/2019 | | Results for this | | ARTERIAL | e | 8:57 PM | | procedure are in the | | | | PDT | | results section. | + +--------+ + + + | CINTHIA AVALOS, | Routin | 12/08/2019 | | Results for this | | ARTERIAL | e | 8:53 PM | | procedure are in the | | | | PDT | | results section. | + +--------+ + + + | CINTHIA AVALOS, | Routin | 12/08/2019 | | Results for this | | ARTERIAL | e | 8:22 PM | | procedure are in the | | | | PDT | | results section. | + +--------+ + + + | POC MARISA Gilbert, ISTAT | Routin | 12/08/2019 | | Results for this | | ARTERIAL | e | 8:02 PM | | procedure are in the | | | | PDT | | results section. | + +--------+ + + + | POC DANNA, CG8, | Routin | 12/08/2019 | | Results for this | | ARTERIAL | e | 7:58 PM | | procedure are in the | | | | PDT | | results section. | + +--------+ + + + | HC CULTURE-SURGICAL | Routin | 12/08/2019 | Acute bacterial | Results for this | | TISSUE | e | 7:50 PM | endocarditis | procedure are in the | | | | PDT | Endocarditis, | results section. | | | | | unspecified | | | | | | chronicity, | | | | | | unspecified | | | | | | endocarditis type | | + +--------+ + + + | TRANSFUSE PLATELETS | Routin | 12/08/2019 | | | | | e | 7:45 PM | | | | | | PDT | | | + +--------+ + + + | TRANSFUSE PLATELETS | Routin | 12/08/2019 | | | | | e | 7:44 PM | | | | | | PDT | | | + +--------+ + + + | CINTHIA AVALOS, | Routin | 12/08/2019 | | Results for this | | ARTERIAL | e | 7:27 PM | | procedure are in the | | | | PDT | | results section. | + +--------+ + + + | POC MARISA 4, ISTAT | Routin | 12/08/2019 | | Results for this | | ARTERIAL | e | 7:16 PM | | procedure are in the | | | | PDT | | results section. | + +--------+ + + + | POC CINTHIA CLAY, | Routin | 12/08/2019 | | Results for this | | ARTERIAL | e | 7:11 PM | | procedure are in the | | | | PDT | | results section. | + +--------+ + + + | HC CULTURE-SURGICAL | Routin | 12/08/2019 | Acute bacterial | Results for this | | TISSUE | e | 7:00 PM | endocarditis | procedure are in the | | | | PDT | Endocarditis, | results section. | | | | | unspecified | | | | | | chronicity, | | | | | | unspecified | | | | | | endocarditis type | | + +--------+ + + + | CINTHIA AVALOS, | Routin | 12/08/2019 | | Results for this | | VENOUS | e | 6:43 PM | | procedure are in the | | | | PDT | | results section. | + +--------+ + + + | CINTHIA AVALOS, | Routin | 12/08/2019 | | Results for this | | ARTERIAL | e | 6:30 PM | | procedure are in the | | | | PDT | | results section. | + +--------+ + + + | CINTHIA AVALOS, | Routin | 12/08/2019 | | Results for this | | ARTERIAL | e | 5:58 PM | | procedure are in the | | | | PDT | | results section. | + +--------+ + + + | POC DANNA RIVERA | Routin | 12/08/2019 | | Results for this | | ARTERIAL | e | 5:18 PM | | procedure are in the | | | | PDT | | results section. | + +--------+ + + + | CINTHIA AVALOS, | Routin | 12/08/2019 | | Results for this | | ARTERIAL | e | 5:14 PM | | procedure are in the | | | | PDT | | results section. 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 | + +--------+ + + + | ECHO TRANSESOPHAGEAL | STAT | 12/08/2019 | | Results for this | | (GURDEEP) | | 3:00 PM | | procedure are in the | | | | PDT | | results section. | + +--------+ + + + | TYPE AND SCREEN | Routin | 12/08/2019 | | Results for this | | | e | 2:45 PM | | procedure are in the | | | | PDT | | results section. | + +--------+ + + + | PRODUCT: PLATELET | STAT | 12/08/2019 | | Results for this | | PHERESIS, | | 2:45 PM | | procedure are in the | | LEUKOREDUCED | | PDT | | results section. | + +--------+ + + + | PRODUCT: RBC | STAT | 12/08/2019 | | Results for this | | | | 2:40 PM | | procedure are in the | | | | PDT | | results section. | + +--------+ + + + | ECG 12 LEAD | STAT | 12/08/2019 | | Results for this | | | | 2:30 PM | | procedure are in the | | | | PDT | | results section. | + +--------+ + + + | MT INSERT | Routin | 12/08/2019 | | Results for this | | CATH,ART,PERCUT,SHOR | e | 1:31 PM | | procedure are in the | | TTERM | | PDT | | results section. | + +--------+ + + + | POC GLUCOSE (NON | Routin | 12/08/2019 | | Results for this | | ORD) | e | 12:47 PM | | procedure are in the | | | | PDT | | results section. | + +--------+ + + + | XR CHEST 1 VIEW | STAT | 12/08/2019 | | Results for this | | | | 12:30 PM | | procedure are in the | | | | PDT | | results section. | + +--------+ + + + | MT INSERT NON-TUNNEL | Routin | 12/08/2019 | | Results for this | | CV CATH | e | 12:04 PM | | procedure are in the | | | | PDT | | results section. | + +--------+ + + + | PHOSPHORUS | [facility] | 12/08/2019 | | Results for this | | | | 4:46 AM | | procedure are in the | | | | PDT | | results section. | + +--------+ + + + | MAGNESIUM | [facility] | 12/08/2019 | | Results for this | | | | 4:46 AM | | procedure are in the | | | | PDT | | results section. | + +--------+ + + + | CBC WITH | [facility] | 12/08/2019 | | Results for this | | DIFFERENTIAL | | 4:46 AM | | procedure are in the | | | | PDT | | results section. | + +--------+ + + + | BASIC METABOLIC | [facility] | 12/08/2019 | | Results for this | | PANEL | | 4:46 AM | | procedure are in the | | | | PDT | | results section. | + +--------+ + + + | POC GLUCOSE (NON | Routin | 12/07/2019 | | Results for this | | ORD) | e | 8:53 PM | | procedure are in the | | | | PDT | | results section. | + +--------+ + + + | POC GLUCOSE (NON | Routin | 12/07/2019 | | Results for this | | ORD) | e | 6:55 PM | | procedure are in the | | | | PDT | | results section. | + +--------+ + + + | CT CHEST WO CONTRAST | Routin | 12/07/2019 | | Results for this | | | e | 4:06 PM | | procedure are in the | | | | PDT | | results section. | + +--------+ + + + | POC GLUCOSE (NON | Routin | 12/07/2019 | | Results for this | | ORD) | e | 2:08 PM | | procedure are in the | | | | PDT | | results section. | + +--------+ + + + | CULTURE, BLOOD | STAT | 12/07/2019 | | Results for this | | | | 11:11 AM | | procedure are in the | | | | PDT | | results section. | + +--------+ + + + | CULTURE, BLOOD | STAT | 12/07/2019 | | Results for this | | | | 11:10 AM | | procedure are in the | | | | PDT | | results section. | + +--------+ + + + | PROTIME INR | Routin | 12/07/2019 | | Results for this | | | e | 2:33 AM | | procedure are in the | | | | PDT | | results section. | + +--------+ + + + | PHOSPHORUS | [facility] | 12/07/2019 | | Results for this | | | | 2:33 AM | | procedure are in the | | | | PDT | | results section. | + +--------+ + + + | MAGNESIUM | [facility] | 12/07/2019 | | Results for this | | | | 2:33 AM | | procedure are in the | | | | PDT | | results section. | + +--------+ + + + | CBC WITH | [facility] | 12/07/2019 | | Results for this | | DIFFERENTIAL | | 2:33 AM | | procedure are in the | | | | PDT | | results section. | + +--------+ + + + | BASIC METABOLIC | [facility] | 12/07/2019 | | Results for this | | PANEL | | 2:33 AM | | procedure are in the | | | | PDT | | results section. | + +--------+ + + + | POC GLUCOSE (NON | Routin | 12/07/2019 | | Results for this | | ORD) | e | 2:20 AM | | procedure are in the | | | | PDT | | results section. | + +--------+ + + + | POC GLUCOSE (NON | Routin | 12/06/2019 | | Results for this | | ORD) | e | 5:07 PM | | procedure are in the | | | | PDT | | results section. | + +--------+ + + + | PHOSPHORUS | Timed | 12/06/2019 | | Results for this | | | | 1:39 PM | | procedure are in the | | | | PDT | | results section. | + +--------+ + + + | MAGNESIUM | Timed | 12/06/2019 | | Results for this | | | | 1:39 PM | | procedure are in the | | | | PDT | | results section. | + +--------+ + + + | POTASSIUM | Timed | 12/06/2019 | | Results for this | | | | 1:39 PM | | procedure are in the | | | | PDT | | results section. | + +--------+ + + + | HIV 1, GENOTYPE | Routin | 12/06/2019 | | Results for this | | | e | 1:39 PM | | procedure are in the | | | | PDT | | results section. | + +--------+ + + + | HIV 1, RNA, NAAT, | Routin | 12/06/2019 | | Results for this | | QUANT | e | 1:39 PM | | procedure are in the | | | | PDT | | results section. | + +--------+ + + + | CRYPTOCOCCAL | STAT | 12/06/2019 | | Results for this | | ANTIGEN, SERUM | | 1:39 PM | | procedure are in the | | | | PDT | | results section. | + +--------+ + + + | POC GLUCOSE (NON | Routin | 12/06/2019 | | Results for this | | ORD) | e | 12:52 PM | | procedure are in the | | | | PDT | | results section. | + +--------+ + + + | CBC IMMATURE CELLS | Routin | 12/06/2019 | | Results for this | | (NON ORD) | e | 10:55 AM | | procedure are in the | | | | PDT | | results section. | + +--------+ + + + | CD4 T CELL PANEL | Add-On | 12/06/2019 | | Results for this | | | | 10:55 AM | | procedure are in the | | | | PDT | | results section. | + +--------+ + + + | HIV 1 AND 2 AB, | Add-On | 12/06/2019 | | Results for this | | REFLEX | | 9:59 AM | | procedure are in the | | | | PDT | | results section. | + +--------+ + + + | POC GLUCOSE (NON | Routin | 12/06/2019 | | Results for this | | ORD) | e | 9:52 AM | | procedure are in the | | | | PDT | | results section. | + +--------+ + + + | PHOSPHORUS | [facility] | 12/06/2019 | | Results for this | | | | 4:27 AM | | procedure are in the | | | | PDT | | results section. | + +--------+ + + + | MAGNESIUM | [facility] | 12/06/2019 | | Results for this | | | | 4:27 AM | | procedure are in the | | | | PDT | | results section. | + +--------+ + + + | CBC WITH | [facility] | 12/06/2019 | | Results for this | | DIFFERENTIAL | | 4:27 AM | | procedure are in the | | | | PDT | | results section. | + +--------+ + + + | BASIC METABOLIC | [facility] | 12/06/2019 | | Results for this | | PANEL | | 4:27 AM | | procedure are in the | | | | PDT | | results section. | + +--------+ + + + | POC GLUCOSE (NON | Routin | 12/05/2019 | | Results for this | | ORD) | e | 11:11 PM | | procedure are in the | | | | PDT | | results section. | + +--------+ + + + | POTASSIUM | STAT | 12/05/2019 | | Results for this | | | | 8:52 PM | | procedure are in the | | | | PDT | | results section. | + +--------+ + + + | PHOSPHORUS | STAT | 12/05/2019 | | Results for this | | | | 8:52 PM | | procedure are in the | | | | PDT | | results section. | + +--------+ + + + | MAGNESIUM | STAT | 12/05/2019 | | Results for this | | | | 8:52 PM | | procedure are in the | | | | PDT | | results section. | + +--------+ + + + | POC GLUCOSE (NON | Routin | 12/05/2019 | | Results for this | | ORD) | e | 4:43 PM | | procedure are in the | | | | PDT | | results section. | + +--------+ + + + | ECHO COMPLETE | STAT | 12/05/2019 | | Results for this | | | | 2:43 PM | | procedure are in the | | | | PDT | | results section. | + +--------+ + + + | POC GLUCOSE (NON | Routin | 12/05/2019 | | Results for this | | ORD) | e | 6:14 AM | | procedure are in the | | | | PDT | | results section. | + +--------+ + + + | PHOSPHORUS | Routin | 12/05/2019 | | Results for this | | | e | 4:02 AM | | procedure are in the | | | | PDT | | results section. | + +--------+ + + + | MAGNESIUM | Routin | 12/05/2019 | | Results for this | | | e | 4:02 AM | | procedure are in the | | | | PDT | | results section. | + +--------+ + + + | CBC WITH | HARRY | 12/05/2019 | | Results for this | | DIFFERENTIAL | | 4:02 AM | | procedure are in the | | | | PDT | | results section. | + +--------+ + + + | BASIC METABOLIC | HARRY | 12/05/2019 | | Results for this | | PANEL | | 4:02 AM | | procedure are in the | | | | PDT | | results section. | + +--------+ + + + | HC BLOOD GASES ANY | Routin | 12/05/2019 | | Results for this | | COMBINATION | e | 1:33 AM | | procedure are in the | | | | PDT | | results section. | + +--------+ + + + | POC GLUCOSE (NON | Routin | 12/04/2019 | | Results for this | | ORD) | e | 10:49 PM | | procedure are in the | | | | PDT | | results section. | + +--------+ + + + | POC GLUCOSE (NON | Routin | 12/04/2019 | | Results for this | | ORD) | e | 5:21 PM | | procedure are in the | | | | PDT | | results section. | + +--------+ + + + | XR ABDOMEN AP | STAT | 12/04/2019 | | Results for this | | | | 5:09 PM | | procedure are in the | | | | PDT | | results section. | + +--------+ + + + | INTUBATION | Routin | 12/04/2019 | | Results for this | | | e | 4:53 PM | | procedure are in the | | | | PDT | | results section. | + +--------+ + + + | XR CHEST 1 VIEW | STAT | 12/04/2019 | | Results for this | | | | 3:32 PM | | procedure are in the | | | | PDT | | results section. | + +--------+ + + + | HEMOGLOBIN AND | STAT | 12/04/2019 | | Results for this | | HEMATOCRIT | | 11:30 AM | | procedure are in the | | | | PDT | | results section. | + +--------+ + + + | MAGNESIUM | STAT | 12/04/2019 | | Results for this | | | | 11:30 AM | | procedure are in the | | | | PDT | | results section. | + +--------+ + + + | PHOSPHORUS | STAT | 12/04/2019 | | Results for this | | | | 11:30 AM | | procedure are in the | | | | PDT | | results section. | + +--------+ + + + | POTASSIUM | STAT | 12/04/2019 | | Results for this | | | | 11:30 AM | | procedure are in the | | | | PDT | | results section. | + +--------+ + + + | POC GLUCOSE (NON | Routin | 12/04/2019 | | Results for this | | ORD) | e | 10:44 AM | | procedure are in the | | | | PDT | | results section. | + +--------+ + + + | TRANSFUSE 1 UNIT RED | Routin | 12/04/2019 | | | | BLOOD CELLS | e | 8:44 AM | | | | | | PDT | | | + +--------+ + + + | POC GLUCOSE (NON | Routin | 12/04/2019 | | Results for this | | ORD) | e | 7:41 AM | | procedure are in the | | | | PDT | | results section. | + +--------+ + + + | PRODUCT: RBC | HARRY | 12/04/2019 | | Results for this | | | | 6:03 AM | | procedure are in the | | | | PDT | | results section. | + +--------+ + + + | PHOSPHORUS | [facility]ARRY | 12/04/2019 | | Results for this | | | | 4:48 AM | | procedure are in the | | | | PDT | | results section. | + +--------+ + + + | MAGNESIUM | HARRY | 12/04/2019 | | Results for this | | | | 4:48 AM | | procedure are in the | | | | PDT | | results section. | + +--------+ + + + | CBC WITH | [facility]ARRY | 12/04/2019 | | Results for this | | DIFFERENTIAL | | 4:48 AM | | procedure are in the | | | | PDT | | results section. | + +--------+ + + + | BASIC METABOLIC | [facility]ARRY | 12/04/2019 | | Results for this | | PANEL | | 4:48 AM | | procedure are in the | | | | PDT | | results section. | + +--------+ + + + | POC GLUCOSE (NON | Routin | 12/04/2019 | | Results for this | | ORD) | e | 12:17 AM | | procedure are in the | | | | PDT | | results section. | + +--------+ + + + | POC GLUCOSE (NON | Routin | 12/03/2019 | | Results for this | | ORD) | e | 9:57 PM | | procedure are in the | | | | PDT | | results section. | + +--------+ + + + | POC GLUCOSE (NON | Routin | 12/03/2019 | | Results for this | | ORD) | e | 5:55 PM | | procedure are in the | | | | PDT | | results section. | + +--------+ + + + | POC GLUCOSE (NON | Routin | 12/03/2019 | | Results for this | | ORD) | e | 12:08 PM | | procedure are in the | | | | PDT | | results section. | + +--------+ + + + | OSMOLALITY, SERUM | STAT | 12/03/2019 | | Results for this | | | | 10:43 AM | | procedure are in the | | | | PDT | | results section. | + +--------+ + + + | VANCOMYCIN, TROUGH | [facility]ARRY | 12/03/2019 | | Results for this | | | | 9:22 AM | | procedure are in the | | | | PDT | | results section. | + +--------+ + + + | POC GLUCOSE (NON | Routin | 12/03/2019 | | Results for this | | ORD) | e | 8:57 AM | | procedure are in the | | | | PDT | | results section. | + +--------+ + + + | HC BLOOD GASES ANY | Routin | 12/03/2019 | | Results for this | | COMBINATION | e | 4:05 AM | | procedure are in the | | | | PDT | | results section. | + +--------+ + + + | PHOSPHORUS | HARRY | 12/03/2019 | | Results for this | | | | 3:48 AM | | procedure are in the | | | | PDT | | results section. | + +--------+ + + + | MAGNESIUM | HARRY | 12/03/2019 | | Results for this | | | | 3:48 AM | | procedure are in the | | | | PDT | | results section. | + +--------+ + + + | CBC WITH | [facility]ARRY | 12/03/2019 | | Results for this | | DIFFERENTIAL | | 3:48 AM | | procedure are in the | | | | PDT | | results section. | + +--------+ + + + | BASIC METABOLIC | HARRY | 12/03/2019 | | Results for this | | PANEL | | 3:48 AM | | procedure are in the | | | | PDT | | results section. | + +--------+ + + + | POC CG 4, ISTAT | Routin | 12/02/2019 | | Results for this | | ARTERIAL | e | 1:43 PM | | procedure are in the | | | | PDT | | results section. | + +--------+ + + + | RT BLOOD GAS POINT | STAT | 12/02/2019 | | | | OF CARE | | 12:51 PM | | | | | | PDT | | | + +--------+ + + + | TRANSFUSE 1 UNIT RED | Routin | 12/02/2019 | | | | BLOOD CELLS | e | 12:24 PM | | | | | | PDT | | | + +--------+ + + + | HC BLOOD GASES ANY | Routin | 12/02/2019 | | Results for this | | COMBINATION | e | 11:40 AM | | procedure are in the | | | | PDT | | results section. | + +--------+ + + + | PTT | STAT | 12/02/2019 | | Results for this | | | | 11:19 AM | | procedure are in the | | | | PDT | | results section. | + +--------+ + + + | FIBRINOGEN | STAT | 12/02/2019 | | Results for this | | | | 11:19 AM | | procedure are in the | | | | PDT | | results section. | + +--------+ + + + | CALCIUM, IONIZED, | STAT | 12/02/2019 | | Results for this | | VENOUS | | 11:19 AM | | procedure are in the | | | | PDT | | results section. | + +--------+ + + + | LACTIC ACID | STAT | 12/02/2019 | | Results for this | | | | 11:19 AM | | procedure are in the | | | | PDT | | results section. | + +--------+ + + + | CULTURE, BLOOD | STAT | 12/02/2019 | | Results for this | | | | 10:56 AM | | procedure are in the | | | | PDT | | results section. | + +--------+ + + + | CULTURE, BLOOD | STAT | 12/02/2019 | | Results for this | | | | 10:56 AM | | procedure are in the | | | | PDT | | results section. | + +--------+ + + + | CORONAVIRUS | STAT | 12/02/2019 | | Results for this | | (COVID-19) NAAT | | 10:45 AM | | procedure are in the | | | | PDT | | results section. | + +--------+ + + + | RT BLOOD GAS POINT | STAT | 12/02/2019 | | | | OF CARE | | 10:40 AM | | | | | | PDT | | | + +--------+ + + + | PRODUCT: RBC | HARRY | 12/02/2019 | | Results for this | | | | 9:51 AM | | procedure are in the | | | | PDT | | results section. | + +--------+ + + + | TYPE AND SCREEN | Routin | 12/02/2019 | | Results for this | | | e | 8:19 AM | | procedure are in the | | | | PDT | | results section. | + +--------+ + + + | PTT | STAT | 12/02/2019 | | Results for this | | | | 6:57 AM | | procedure are in the | | | | PDT | | results section. | + +--------+ + + + | PROTIME INR | STAT | 12/02/2019 | | Results for this | | | | 6:57 AM | | procedure are in the | | | | PDT | | results section. | + +--------+ + + + | FIBRINOGEN | STAT | 12/02/2019 | | Results for this | | | | 6:57 AM | | procedure are in the | | | | PDT | | results section. | + +--------+ + + + | VANCOMYCIN LEVEL | Routin | 12/02/2019 | | Results for this | | | e | 6:08 AM | | procedure are in the | | | | PDT | | results section. | + +--------+ + + + | PHOSPHORUS | HARRY | 12/02/2019 | | Results for this | | | | 6:08 AM | | procedure are in the | | | | PDT | | results section. | + +--------+ + + + | MAGNESIUM | HARRY | 12/02/2019 | | Results for this | | | | 6:08 AM | | procedure are in the | | | | PDT | | results section. | + +--------+ + + + | CBC WITH | [facility]ARRY | 12/02/2019 | | Results for this | | DIFFERENTIAL | | 6:08 AM | | procedure are in the | | | | PDT | | results section. | + +--------+ + + + | BASIC METABOLIC | HARRY | 12/02/2019 | | Results for this | | PANEL | | 6:08 AM | | procedure are in the | | | | PDT | | results section. | + +--------+ + + + | HC BLOOD GASES ANY | Routin | 12/02/2019 | | Results for this | | COMBINATION | e | 2:04 AM | | procedure are in the | | | | PDT | | results section. | + +--------+ + + + | HC BLOOD GASES ANY | Routin | 12/01/2019 | | Results for this | | COMBINATION | e | 9:08 PM | | procedure are in the | | | | PDT | | results section. | + +--------+ + + + | LACTIC ACID | STAT | 12/01/2019 | | Results for this | | | | 9:07 PM | | procedure are in the | | | | PDT | | results section. | + +--------+ + + + | URINALYSIS, REFLEX | Routin | 12/01/2019 | | Results for this | | MICROSCOPIC AND/OR | e | 6:44 PM | | procedure are in the | | CULTURE | | PDT | | results section. | + +--------+ + + + | CULTURE, URINE | Routin | 12/01/2019 | | Results for this | | | e | 6:44 PM | | procedure are in the | | | | PDT | | results section. | + +--------+ + + + | LACTIC ACID | STAT | 12/01/2019 | | Results for this | | | | 6:27 PM | | procedure are in the | | | | PDT | | results section. | + +--------+ + + + | SALICYLATE LEVEL | Routin | 12/01/2019 | | Results for this | | | e | 6:18 PM | | procedure are in the | | | | PDT | | results section. | + +--------+ + + + | PTT | HARRY | 12/01/2019 | | Results for this | | | | 6:18 PM | | procedure are in the | | | | PDT | | results section. | + +--------+ + + + | PROTIME INR | HARRY | 12/01/2019 | | Results for this | | | | 6:18 PM | | procedure are in the | | | | PDT | | results section. | + +--------+ + + + | PHOSPHORUS | HARRY | 12/01/2019 | | Results for this | | | | 6:18 PM | | procedure are in the | | | | PDT | | results section. | + +--------+ + + + | MAGNESIUM | HARRY | 12/01/2019 | | Results for this | | | | 6:18 PM | | procedure are in the | | | | PDT | | results section. | + +--------+ + + + | COMPREHENSIVE | [facility]ARRY | 12/01/2019 | | Results for this | | METABOLIC PANEL | | 6:18 PM | | procedure are in the | | | | PDT | | results section. | + +--------+ + + + | CK TOTAL | STAT | 12/01/2019 | | Results for this | | | | 6:18 PM | | procedure are in the | | | | PDT | | results section. | + +--------+ + + + | CBC WITH | [facility]ARRY | 12/01/2019 | | Results for this | | DIFFERENTIAL | | 6:18 PM | | procedure are in the | | | | PDT | | results section. | + +--------+ + + + | MRSA NAAT | Routin | 12/01/2019 | | Results for this | | | e | 5:59 PM | | procedure are in the | | | | PDT | | results section. | + +--------+ + + + | XR CHEST AP PORTABLE | [facility]ARRY | 12/01/2019 | | Results for this | | | | 5:47 PM | | procedure are in the | | | | PDT | | results section. | + +--------+ + + + | HC BLOOD GASES ANY | Routin | 12/01/2019 | | Results for this | | COMBINATION | e | 5:01 PM | | procedure are in the | | | | PDT | | results section. | + +--------+ + + + from Last 3 Months Results ECG 12 lead (01/23/2020 3:16 PM PDT)Only the most recent of 8 results within the time sloane od is included. + + + + + + | Component | Value | Ref Range | Performed | Pathologist | | | | | At | Signature | + + + + + + | VENTRICULAR | 135 | BPM | [facility] | | | RATE EKG | | | | | + + + + + + | ATRIAL RATE | 129 | BPM | [facility] | | + + + + + + | QRS | 124 | ms | [facility] | | | DURATION | | | | | + + + + + + | Q-T | 344 | ms | [facility] | | | INTERVAL | | | | | + + + + + + | Q-T | 516 | ms | [facility] | | | INTERVAL | | | | | | (CORRECTED) | | | | | + + + + + + | QRS AXIS | -45 | degrees | [facility] | | + + + + + + | T AXIS | 41 | degrees | [facility] | | + + + + + + | INTERPRETAT | Please refer to | | [facility] | | | ION TEXT | Providers office visit | | | | | | note for Providers | | | | | | Interpretation.Confirmed | | | | | | by FROILAN MILLER MD | | | | | | ([id number]) on 01/23/2020 | | | | | | 4:42:23 PM | | | | + + + + + + + + | Specimen | + + | | + + + + + | Narrative | Performed At | + + + | | | + + + + +---------+ + + | Performing | Address | City/State/Zipcode | Phone Number | | Organization | | | | + +---------+ + + | [facility] | | | | + +---------+ + + LABS - EXTERNAL SCAN (12/29/2019 12:00 AM PDT) + + + | Narrative | Performed At | + + + | Ordered by an | | | unspecified provider. | | + + + Protime INR (12/28/2019 5:09 AM PDT)Only the most recent of 18 results within the time per iod is included. + + + + + + | Component | Value | Ref Range | Performed | Pathologist | | | | | At | Signature | + + + + + + | INR | 3.8Comment: REFERENCE | | [facility] | | | | RANGE:0.9 - 1.2 | | LABORATORY | | | | NON-ANTICOAGULATED2.0 | | | | | | - 3.0 ALL OTHER | | | | | | THERAPEUTIC | | | | | | INDICATIONS2.5 - 3.5 | | | | | | MECHANICAL HEART VALVES, | | | | | | RECURRENT OR SYSTEMIC | | | | | | EMBOLISMTesting | | | | | | performed at [facility];[place] | | | | | | [address] | | | | + + + + + + + + | Specimen | + + | Blood | + + + + + + + | Performing | Address | City/State/Zipcode | Phone Number | | Organization | | | | + + + + + | [facility] | [address] [facility] [facility] | [place] [address] | [phone] | + + + + + CBC with Differential (12/28/2019 5:09 AM PDT)Only the most recent of 29 results within time period is included. + + + + + + | Component | Value | Ref Range | Performed | Pathologist | | | | | At | Signature | + + + + + + | WBC | 7.51 | 3.80 - 11.00 | [facility] | | | | | K/uL | LABORATORY | | + + + + + + | RBC | 2.79 (L) | 4.20 - 5.70 | [facility] | | | | | M/uL | LABORATORY | | + + + + + + | Hemoglobin | 7.8 (L) | 13.2 - 17.0 | [facility] | | | | | g/dL | LABORATORY | | + + + + + + | Hematocrit | 25.4 (L) | 39.0 - 50.0 % | [facility] | | | | | | LABORATORY | | + + + + + + | MCV | 91.0 | 80.0 - 100.0 fl | [facility] | | | | | | LABORATORY | | + + + + + + | MCH | 28.0 | 27.0 - 34.0 pg | [facility] | | | | | | LABORATORY | | + + + + + + | MCHC | 30.7 (L) | 32.0 - 35.5 | [facility] | | | | | g/dL | LABORATORY | | + + + + + + | RDW-SD | 55.4 (H) | 37 - 53 fl | [facility] | | | | | | LABORATORY | | + + + + + + | Platelet | 309 | 150 - 400 K/uL | [facility] | | | Count | | | LABORATORY | | + + + + + + | MPV | 9.6Comment: NO NORMAL | fl | [facility] | | | | RANGE ESTABLISHED | | LABORATORY | | + + + + + + | Diff Type | AUTOMATED | | [facility] | | | | | | LABORATORY | | + + + + + + | % nRBC | 0.0 | 0 /100WBC | [facility] | | | | | | LABORATORY | | + + + + + + | % | 60.00 | % | [facility] | | | Neutrophils | | | LABORATORY | | + + + + + + | IMMATURE | 0.40 | % | [facility] | | | GRANULOCYTE | | | LABORATORY | | + + + + + + | % | 20.50 | % | [facility] | | | Lymphocytes | | | LABORATORY | | + + + + + + | Monocyte % | 8.30 | % | [facility] | | | | | | LABORATORY | | + + + + + + | Eosinophils | 10.00 | % | [facility] | | | % | | | LABORATORY | | + + + + + + | Basophils % | 0.80 | % | [facility] | | | | | | LABORATORY | | + + + + + + | Neutrophils | 4.51 | 1.90 - 7.40 | [facility] | | | , Absolute | | K/uL | LABORATORY | | + + + + + + | IMMATURE | 0.03Comment: NOTE NEW | 0.00 - 0.07 | [facility] | | | GRANS AB | REFERENCE RANGE | K/uL | LABORATORY | | + + + + + + | Absolute | 1.54 | 1.00 - 3.90 | [facility] | | | Lymphocytes | | K/uL | LABORATORY | | + + + + + + | Absolute | 0.62 | 0.00 - 0.80 | [facility] | | | Monocytes | | K/uL | LABORATORY | | + + + + + + | Eosinophils | 0.75 (H) | 0.00 - 0.50 | [facility] | | | , Absolute | | K/uL | LABORATORY | | + + + + + + | Basophils, | 0.06Comment: Testing | 0.00 - 0.10 | [facility] | | | Absolute | performed at [facility];[address] | [address] | LABORATORY | | | | [address];[place] | | | | | | [address] | | | | + + + + + + + + | Specimen | + + | Blood | + + + + + + + | Performing | Address | City/State/Zipcode | Phone Number | | Organization | | | | + + + + + | [facility] | [address] | [place] [address] | [phone] | + + + + + Phosphorus (12/28/2019 5:09 AM PDT)Only the most recent of 34 results within the time sloane od is included. + + + + + + | Component | Value | Ref Range | Performed | Pathologist | | | | | At | Signature | + + + + + + | Phosphorus | 5.0 (H)Comment: Testing | 2.3 - 4.8 mg/dL | [facility] | | | | performed at [facility];[address] | | LABORATORY | | | | [address];[place] | | | | | | [address] | | | | + + + + + + + + | Specimen | + + | Blood | + + + + + + + | Performing | Address | City/State/Zipcode | Phone Number | | Organization | | | | + + + + + | [facility] | [address] | [place] [address] | [phone] | + + + + + Magnesium (12/28/2019 5:09 AM PDT)Only the most recent of 44 results within the time blank vieyra is included. + + + + + + | Component | Value | Ref Range | Performed | Pathologist | | | | | At | Signature | + + + + + + | Magnesium | 1.8Comment: Testing | 1.7 - 2.4 mg/dL | [facility] | | | | performed at [facility];[address] | | LABORATORY | | | [address];[place], [place] | | | | | | [address] | | | | + + + + + + + + | Specimen | + + | Blood | + + + + + + + | Performing | Address | City/State/Zipcode | Phone Number | | Organization | | | | + + + + + | [facility] | [address] | [place] [address] | [phone] | + + + + + Vancomycin, Trough (12/28/2019 5:09 AM PDT)Only the most recent of 14 results within the period is included. + + + + + + | Component | Value | Ref Range | Performed | Pathologist | | | | | At | Signature | + + + + + + | Vancomycin, | 16.8Comment: 15 to 20 | 10 - 20 ug/mL | [facility] | | | Trough | ug/mL for meningitis, | | LABORATORY | | | | osteomyelitis, | | | | | | endocarditis, sepsis, | | | | | | orhealthcare associated | | | | | | pneumonia, or an ALVAREZ | | | | | | equal to or greater than | | | | | | 1.0 ug/mLTesting | | | | | | performed at [facility];[address];[place] | | | | | | [address] | | | | + + + + + + + + | Specimen | + + | | + + + + + + + | Performing | Address | City/State/Zipcode | Phone Number | | Organization | | | | + + + + + | [facility] | [address] | [place] [address] | [phone] | + + + + + Basic Metabolic Panel (12/28/2019 5:09 AM PDT)Only the most recent of 28 results within time period is included. + + + + + + | Component | Value | Ref Range | Performed | Pathologist | | | | | At | Signature | + + + + + + | Na | 133 (L) | 135 - 145 | [facility] | | | | | mmol/L | LABORATORY | | + + + + + + | K | 4.1 | 3.5 - 4.9 | [facility] | | | | | mmol/L | LABORATORY | | + + + + + + | Cl | 101 | 99 - 109 mmol/L | [facility] | | | | | | LABORATORY | | + + + + + + | CO2 | 22 (L) | 23 - 32 mmol/L | [facility] | | | | | | LABORATORY | | + + + + + + | Anion Gap | 14 | 5 - 20 mmol/L | [facility] | | | | | | LABORATORY | | + + + + + + | Glucose | 111 (H) | 65 - 99 mg/dL | [facility] | | | | | | LABORATORY | | + + + + + + | BUN | 9 | 8 - 25 mg/dL | [facility] | | | | | | LABORATORY | | + + + + + + | Creatinine | 0.55 (L) | 0.70 - 1.30 | [facility] | | | | | mg/dL | LABORATORY | | + + + + + + | BUN/Creatin | 16 | | [facility] | | | ine Ratio | | | LABORATORY | | + + + + + + | Calcium | 8.7 | 8.5 - 10.5 | [facility] | | | | | mg/dL | LABORATORY | | + + + + + + | Estimated | >60Comment: GFR <60: | >60 | [facility] | | | GFR | CHRONIC KIDNEY DISEASE, | mL/min/1.73m2 | LABORATORY | | | | IF FOUND OVER A 3 MONTH | | | | | | PERIOD.GFR <15: KIDNEY | | | | | | FAILURE.FOR | | | | | | AMERICANS, MULTIPLY THE | | | | | | CALCULATED GFR BY | | | | | | 1.210.This eGFR is | | | | | | calculated using the | | | | | | MDRD IDMS traceable | | | | | | equation.Testing | | | | | | performed at [facility] | | | | | | [facility];[place], [place] | | | | | | [address] | | | | + + + + + + + + | Specimen | + + | Blood | + + + + + + + | Performing | Address | City/State/Zipcode | Phone Number | | Organization | | | | + + + + + | [facility] | [address] | [place] [address] | [phone] | + + + + + Potassium (12/27/2019 2:16 PM PDT)Only the most recent of 27 results within the time blank vieyra is included. + + + + + + | Component | Value | Ref Range | Performed | Pathologist | | | | | At | Signature | + + + + + + | K | 4.1Comment: Testing | 3.5 - 4.9 | [facility] | | | | performed at [facility];[address] | mmol/L | LABORATORY | | | | [address];[place], [place] | | | | | | [address] | | | | + + + + + + + + | Specimen | + + | Blood | + + + + + + + | Performing | Address | City/State/Zipcode | Phone Number | | Organization | | | | + + + + + | [facility] | [address] | [place] [address] | [phone] | + + + + + PTT (12/27/2019 4:18 AM PDT)Only the most recent of 43 results within the time period is i ncluded. + + + + + + | Component | Value | Ref Range | Performed | Pathologist | | | | | At | Signature | + + + + + + | PTT | 52 (H)Comment: Testing | 23 - 32 seconds | [facility] | | | | performed at [facility];[address] | LABORATORY | | | [address];[place], [place] | | | | | | [address] | | | | + + + + + + + + | Specimen | + + | Blood | + + + + + + + | Performing | Address | City/State/Zipcode | Phone Number | | Organization | | | | + + + + + | [facility] | [address] | [place] [address] | [phone] | + + + + + Echo Limited (12/25/2019 9:04 AM PDT)Only the most recent of 2 results within the time per iod is included. + +--------+ + + + | Component | Value | Ref Range | Performed | Pathologist | | | | | At | Signature | + +--------+ + + + | RA PRESSURE | 3 | mmHg | [facility] | | + +--------+ + + + | LVIDd | 5.54 | cm | [facility] | | + +--------+ + + + | FS | 37 | % | [facility] | | + +--------+ + + + | AV mean | 13.8 | mmHg | [facility] | | | gradient | | | | | + +--------+ + + + | Aortic | 1.55 | cm2 | [facility] | | | Valve Area | | | | | | by | | | | | | Continuity | | | | | | VTI | | | | | + +--------+ + + + | MV mean | 12.45 | mmHg | [facility] | | | gradient | | | | | + +--------+ + + + | MV Area by | 4.31 | cm2 | [facility] | | | P 1/2 | | | | | | method | | | | | + +--------+ + + + | MV Area by | 1.53 | cm2 | [facility] | | | Continuity | | | | | | Equation | | | | | + +--------+ + + + | LVOT | 2.29 | cm | [facility] | | | diameter | | | | | + +--------+ + + + | LVOT peak | 103.51 | cm/s | [facility] | | | peter | | | | | + +--------+ + + + | LVOT peak | 15.66 | cm | [facility] | | | VTI | | | | | + +--------+ + + + | AV peak peter | 267.11 | cm/s | [facility] | | + +--------+ + + + | AV VTI | 41.69 | cm | [facility] | | + +--------+ + + + | AV peak | 28.54 | mmHg | [facility] | | | gradient | | | | | + +--------+ + + + | MV peak | 31.11 | mmHg | [facility] | | | gradient | | | | | + +--------+ + + + | MV Pressure | 51.09 | msec | [facility] | | | 1/2 time | | | | | + +--------+ + + + | AV LVOT | 4.29 | mmHg | [facility] | | | Peak | | | | | | Gradient | | | | | + +--------+ + + + | AV LVOT | 2.55 | mmHg | [facility] | | | Mean | | | | | | Gradient | | | | | + +--------+ + + + | RV | 3.27 | cm | [facility] | | | Diastolic | | | | | | Basal | | | | | | Diameter | | | | | + +--------+ + + + | LVOT Mean | 77.25 | cm/s | [facility] | | | Velocity | | | | | + +--------+ + + + | MV | 181.95 | msec | [facility] | | | Deceleratio | | | | | | n Time | | | | | + +--------+ + + + | MV Mean | 155.63 | cm/s | [facility] | | | Velocity | | | | | + +--------+ + + + | MV Peak | 274.84 | cm/s | [facility] | | | E-Wave | | | | | + +--------+ + + + | AV Mean | 168.52 | cm/s | [facility] | | | Velocity | | | | | + +--------+ + + + | LA Major | 0.4169 | cm | [facility] | | + +--------+ + + + | Cardiac | 7.67 | l/min | [facility] | | | Output | | | | | + +--------+ + + + | Cardiac | 3.6 | l/min/m2 | [facility] | | | Index | | | | | + +--------+ + + + | Vitals | 119 | | [facility] | | | Heart Rate | | | | | | Rest | | | | | + +--------+ + + + | Vitals BP | 92 | | [facility] | | | Systolic | | | | | + +--------+ + + + | Vitals BP | 65 | | [facility] | | | Diastolic | | | | | + +--------+ + + + | Vitals | 168.0 | | [facility] | | | Height | | | | | + +--------+ + + + | Vitals | 105.20 | | [facility] | | | Weight | | | | | + +--------+ + + + | IVS | 0.94 | cm | [facility] | | | Diastolic | | | | | | Thickness | | | | | | MM | | | | | + +--------+ + + + | LVPW | 1.07 | cm | [facility] | | | Diastolic | | | | | | Thickness | | | | | | MM | | | | | + +--------+ + + + | IVS | 1.58 | cm | [facility] | | | Systolic | | | | | | Thickness | | | | | | MM | | | | | + +--------+ + + + | LV Systolic | 3.51 | cm | [facility] | | | Diameter | | | | | | MM | | | | | + +--------+ + + + | LVPW | 1.62 | cm | [facility] | | | Systolic | | | | | | Thickness | | | | | | MM | | | | | + +--------+ + + + | LVEF-TTE | 60 | % | [facility] | | | TRANSTHORAC | | | | | | IC ECHO | | | | | + +--------+ + + + + + | Specimen | + + | | + + + + + | Narrative | Performed At | + + + | Limited | [facility] | | studyNormal LV systolic functionModerate pericardial effusion no clear | | | tamponadeAortic and mitral valve prostheses appear well seatedThere | | | is a small mobile area on the ventricular side of the mitral valve | | | prosthesis, cannot definitively rule out new vegetationConsider | | | transesophageal echocardiogram if there is strong clinical suspicion | | | for recurrent endocarditisImages and thoughts reviewed with the | | | cardiothoracic surgeon | | |Images and thoughts reviewed with the cardiothoracic surgeon | | + + + + +---------+ + + | Performing | Address | City/State/Zipcode | Phone Number | | Organization | | | | + +---------+ + + | [facility] | | | | + +---------+ + + XR Chest PA and Lateral (12/25/2019 7:45 AM PDT) + + | Specimen | + + | | + + + + + | Impressions | Performed At | + + + | 1. Status post right-sided chest tube removal. A small right | [facility] | | apically pneumothorax persists. 2. Bilateral small pleural effusions | | | are present with presumed scattered bibasilar atelectasis. 3. | | | Additional hazy opacities throughout the lung could reflect | | | underlying pulmonary edema. Signed by: Jesus Pryor, | | | Edilberto Sign Date/Time: 12/25/2019 8:26 AM | | + + + + + + | Narrative | Performed At | + + + | CHEST PA AND LATERAL CLINICAL INFORMATION: Status post chest | [facility] | | tube removal. COMPARISON: XR CHEST AP PORTABLE (12/24/2019); XR | | | CHEST AP PORTABLE (12/23/2019); XR CHEST AP PORTABLE (12/22/2019); | | | FINDINGS: Median sternotomy wires are maintained. The patient is | | | status post valve replacement. Cardiac silhouette is mildly | | | enlarged, stable. No mediastinal shift or widening is noted. A | | | small right pneumothorax is noted measuring 1.7 cm. The right-sided | | | PICC line is stable. Previously seen right-sided chest tube is no | | | longer present. There is blunting of the costophrenic angle | | | bilaterally. Hazy opacities are noted throughout the lung | | | bilaterally. Pulmonary markings are normal in caliber. | | + + + + + | Procedure Note | + + | Sai, Rad Results In - 12/25/2019 8:30 AM PDT | | CHEST PA AND LATERAL | | | | CLINICAL INFORMATION: | | Status post chest tube removal. | | | | COMPARISON: | | XR CHEST AP PORTABLE (12/24/2019); XR CHEST AP PORTABLE (12/23/2019); XR | | CHEST AP PORTABLE (12/22/2019); | | | | FINDINGS: | | Median sternotomy wires are maintained. The patient is status post | | valve replacement. Cardiac silhouette is mildly enlarged, stable. No | | mediastinal shift or widening is noted. A small right pneumothorax is | | noted measuring 1.7 cm. The right-sided PICC line is stable. | | Previously seen right-sided chest tube is no longer present. There is | | blunting of the costophrenic angle bilaterally. Hazy opacities are | | noted throughout the lung bilaterally. Pulmonary markings are normal | | in caliber. | | | | IMPRESSION: | | 1. Status post right-sided chest tube removal. A small right apically | | pneumothorax persists. | | 2. Bilateral small pleural effusions are present with presumed | | scattered bibasilar atelectasis. | | 3. Additional hazy opacities throughout the lung could reflect | | underlying pulmonary edema. | | | | | | | | | | Signed by: Jesus Pryor, Edilberto | | Sign Date/Time: 12/25/2019 8:26 AM | + + + +---------+ + + | Performing | Address | City/State/Zipcode | Phone Number | | Organization | | | | + +---------+ + + | [facility] | | | | + +---------+ + + XR Chest AP Portable (12/24/2019 5:30 AM PDT)Only the most recent of 18 results within the time period is included. + + | Specimen | + + | | + + + + + | Narrative | Performed At | + + + | CHEST PORTABLE ONE VIEW CLINICAL INFORMATION: Post cardiac | [facility] | | surgery. COMPARISON: XR CHEST AP PORTABLE (12/23/2019); XR CHEST AP | | | PORTABLE (12/22/2019); XR CHEST AP PORTABLE (12/21/2019); | | | FINDINGS/IMPRESSION: 1. Stable right-sided PICC line and right-sided | | | chest tube. 2. Improving pulmonary edema pattern. Decreased | | | vascular distension, interstitial opacities and pleural thickening | | | 3. Stable cardiomegaly. 4. No pneumothorax. Signed by: | | | Jesus García, Abel Sign Date/Time: 12/24/2019 6:20 AM | | + + + + + | Procedure Note | + + | Sai, Rad Results In - 12/24/2019 6:23 AM PDT | | CHEST PORTABLE ONE VIEW | | | | CLINICAL INFORMATION: | | Post cardiac surgery. | | | | COMPARISON: | | XR CHEST AP PORTABLE (12/23/2019); XR CHEST AP PORTABLE (12/22/2019); XR | | CHEST AP PORTABLE (12/21/2019); | | | | FINDINGS/IMPRESSION: | | 1. Stable right-sided PICC line and right-sided chest tube. | | 2. Improving pulmonary edema pattern. Decreased vascular distension, | | interstitial opacities and pleural thickening | | 3. Stable cardiomegaly. | | 4. No pneumothorax. | | | | | | | | Signed by: Jesus García Robin | | Sign Date/Time: 12/24/2019 6:20 AM | + + + +---------+ + + | Performing | Address | City/State/Zipcode | Phone Number | | Organization | | | | + +---------+ + + | [facility] | | | | + +---------+ + + FL Video Swallow w Speech (12/20/2019 11:30 AM PDT) + + | Specimen | + + | | + + + + + | Narrative | Performed At | + + + | This exam has been auto-finalized and the interpretation may exist | [facility] | | elsewhere in the chart. | | + + + + +---------+ + + | Performing | Address | City/State/Zipcode | Phone Number | | Organization | | | | + +---------+ + + | [facility] | | | | + +---------+ + + MRI Brain wo Contrast (12/17/2019 9:11 PM PDT) + + | Specimen | + + | | + + + + + | Impressions | Performed At | + + + | Questionable 6 mm diffusion restriction in right centrum semiovale, | [facility] | | possible acute infarct. Several small hyperintensities on DWI | | | without definite diffusion restriction, T2 shine through versus | | | subacute infarcts, possibly embolic in origin given history of | | | endocarditis. Signed by: Jesus Mitchell, Julia Sign Date/Time: | | | 12/17/2019 9:27 PM | | + + + + + + | Narrative | Performed At | + + + | MRI BRAIN WITHOUT CONTRAST CLINICAL INFORMATION: Altered | [facility] | | mental status. Endocarditis. COMPARISON: CT head 12/01/2019 | | | PROCEDURE: Sagittal T1, axial FLAIR, axial T2, axial T1, axial | | | gradient susceptibility, coronal T2, axial DWI. FINDINGS: Brain: | | | No intracranial hemorrhage. No midline shift or pathologic mass | | | effect. Mild periventricular T2/FLAIR signal hyperintensity, | | | nonspecific. Questionable 6 mm diffusion restriction in right | | | centrum semiovale. Several small hyperintensities on DWI without | | | definite diffusion restriction, T2 shine through versus subacute | | | infarcts. Ventricles and extra-axial fluid spaces: Sulci, lateral | | | and 3rd ventricles are prominent consistent with volume loss. Cavum | | | septum pellucidum is noted. Sella, suprasellar cistern, and | | | orbits: Normal. Major vascular flow voids: Normal. Calvarium | | | and extracranial soft tissues: Normal. Paranasal sinuses and | | | mastoid air cells: Paranasal sinuses are clear. Mild bilateral | | | mastoid effusion. | | + + + + + | Procedure Note | + + | Sai, Rad Results In - 12/17/2019 9:30 PM PDT | | MRI BRAIN WITHOUT CONTRAST | | | | CLINICAL INFORMATION: | | Altered mental status. Endocarditis. | | | | COMPARISON: | | CT head 12/01/2019 | | | | PROCEDURE: | | Sagittal T1, axial FLAIR, axial T2, axial T1, axial gradient | | susceptibility, coronal T2, axial DWI. | | | | FINDINGS: | | Brain: No intracranial hemorrhage. No midline shift or pathologic mass | | effect. Mild periventricular T2/FLAIR signal hyperintensity, | | nonspecific. Questionable 6 mm diffusion restriction in right centrum | | semiovale. Several small hyperintensities on DWI without definite | | diffusion restriction, T2 shine through versus subacute infarcts. | | | | Ventricles and extra-axial fluid spaces: Sulci, lateral and 3rd | | ventricles are prominent consistent with volume loss. Cavum septum | | pellucidum is noted. | | | | Sella, suprasellar cistern, and orbits: Normal. | | | | Major vascular flow voids: Normal. | | | | Calvarium and extracranial soft tissues: Normal. | | | | Paranasal sinuses and mastoid air cells: Paranasal sinuses are clear. | | Mild bilateral mastoid effusion. | | | | IMPRESSION: | | Questionable 6 mm diffusion restriction in right centrum semiovale, | | possible acute infarct. Several small hyperintensities on DWI without | | definite diffusion restriction, T2 shine through versus subacute | | infarcts, possibly embolic in origin given history of endocarditis. | | | | | | | | Signed by: Jesus Mitchell, Jluia | | Sign Date/Time: 12/17/2019 9:27 PM | + + + +---------+ + + | Performing | Address | City/State/Zipcode | Phone Number | | Organization | | | | + +---------+ + + | [facility] | | | | + +---------+ + + Red Blood Cells (PRBC) - Transfuse (12/17/2019 8:21 AM PDT)POC Glucose (12/16/2019 12:41 A M PDT)Only the most recent of 67 results within the time period is included. + + + + + + | Component | Value | Ref Range | Performed | Pathologist | | | | | At | Signature | + + + + + + | Glucose, | 96Comment: Testing | 65 - 99 mg/dL | [facility] | | | POC | performed at [facility];[address] | | LABORAT[address] | | | | [address];[place], [place] | | | | | | [address] | | | | + + + + + + + + | Specimen | + + | | + + + + + + + | Performing | Address | City/State/Zipcode | Phone Number | | Organization | | | | + + + + + | [facility] | [address] | [place] [address] | [phone] | + + + + + CBC no Differential (12/15/2019 9:15 AM PDT) + + + + + + | Component | Value | Ref Range | Performed | Pathologist | | | | | At | Signature | + + + + + + | WBC | 12.28 (H) | 3.80 - 11.00 | [facility] | | | | | K/uL | LABORATORY | | + + + + + + | RBC | 2.60 (L) | 4.20 - 5.70 | [facility] | | | | | M/uL | LABORATORY | | + + + + + + | Hemoglobin | 7.5 (L) | 13.2 - 17.0 | [facility] | | | | | g/dL | LABORATORY | | + + + + + + | Hematocrit | 24.2 (L) | 39.0 - 50.0 % | [facility] | | | | | | LABORATORY | | + + + + + + | MCV | 93.1 | 80.0 - 100.0 fl | [facility] | | | | | | LABORATORY | | + + + + + + | MCH | 28.8 | 27.0 - 34.0 pg | [facility] | | | | | | LABORATORY | | + + + + + + | MCHC | 31.0 (L) | 32.0 - 35.5 | [facility] | | | | | g/dL | LABORATORY | | + + + + + + | RDW-SD | 56.5 (H) | 37 - 53 fl | [facility] | | | | | | LABORATORY | | + + + + + + | Platelet | 243 | 150 - 400 K/uL | [facility] | | | Count | | | LABORATORY | | + + + + + + | MPV | 10.4Comment: NO NORMAL | fl | [facility] | | | | RANGE ESTABLISHEDTesting | | LABORATORY | | | | performed at [facility];[address];[place], [place] | | | | | | [address] | | | | + + + + + + + + | Specimen | + + | Blood | + + + + + + + | Performing | Address | City/State/Zipcode | Phone Number | | Organization | | | | + + + + + | [facility] | [address] | [place] [address] | [phone] | + + + + + Vancomycin Level (12/14/2019 2:19 PM PDT)Only the most recent of 3 results within the time period is included. + + + + + + | Component | Value | Ref Range | Performed | Pathologist | | | | | At | Signature | + + + + + + | Vancomycin | 22.1Comment: Testing | ug/mL | [facility] | | | Random, | performed at [facility];[address] | | LABORATORY | | | Serum | [address];[place], [place] | | | | | | [address] | | | | + + + + + + + + | Specimen | + + | Blood | + + + + + + + | Performing | Address | City/State/Zipcode | Phone Number | | Organization | | | | + + + + + | [facility] | [address] | [place] [address] | [phone] | + + + + + Culture, Body Fluid Sterile (12/14/2019 1:50 PM PDT)Only the most recent of 2 results with in the time period is included. + + + + + + | Component | Value | Ref Range | Performed | Pathologist | | | | | At | Signature | + + + + + + | Gram Stain | WBC'S SEEN | | [facility] | | | Result | | | LABORATORY | | + + + + + + | Gram Stain | NO ORGANISMS SEEN | | [facility] | | | Result | | | LABORATORY | | + + + + + + | Gram Stain | STAIN PERFORMED ON | | [facility] | | | Result | CYTOSPIN | | LABORATORY | | + + + + + + | Gram Stain | Testing performed at | | [facility] | | | Result | [facility];[address] | LABORATORY | | | | [address];[place] [address] | | | | + + + + + + | RESULT | NO GROWTH 4 DAYS | | [facility] | | | | | | LABORATORY | | + + + + + + | RESULT | Testing performed at | | [facility] | | | | TCL, [address] | | LABORATORY | | | | [place], [place] | | | | | | [id number]: Testing | | | | | | performed at [facility], [address] | | | | | [address] [facility], [place], [place] | | | | | | [address] | | | | + + + + + + + + | Specimen | + + | Body Fluid - | | Pericardial fluid | | specimen (specimen) | + + + + + + + | Performing | Address | City/State/Zipcode | Phone Number | | Organization | | | | + + + + + | [facility] | [address] | [place] [address] | [phone] | + + + + + Phu (12/14/2019 12:31 PM PDT) + + + | Narrative | Performed At | + + + | Sergio Gan MD 12/14/2019 12:34 PM Arterial Line Placement | | | 12/14/2019 12:31 PM Indication: continuous blood pressure | | | monitoring and acid-base/laboratory analysis Prep solution: | | | chlorhexidine/isoproplyl alcohol Patient was: under GA Laterality: | | | right Artery:radial Size: 20 g Localization technique: ultrasound | | | Securement: transparent dressing, tape and arm board Performed by: | | | Sergio Gan MD Authorizing provider: Sergio Gan MD Comments: | | | Total two attempts required at right radial insertion; secondary | | | attempt: easy, direct insertion Please see intraoperative grid | | | for any additional medication documentation. | | + + + Red Blood Cells (PRBC) - Crossmatch and Hold (12/14/2019 10:20 AM PDT)Only the most recent of 5 results within the time period is included. + + + + + + | Component | Value | Ref Range | Performed | Pathologist | | | | | At | Signature | + + + + + + | Product | [employer] | | [facility] | | | Code | | | LABORATORY | | + + + + + + | Units | 4 | | [facility] | | | ordered | | | LABORATORY | | + + + + + + | BLOOD BANK | ORDER RECEIVED IN BLOOD | | [facility] | | | COMMENT | BANK. | | LABORATORY | | + + + + + + | BLOOD BANK | Testing performed at | | [facility] | | | COMMENT | [facility];[address] | LABORATORY | | | [address];[place] [address] | | | | + + + + + + + + | Specimen | + + | | + + + + + + + | Performing | Address | City/State/Zipcode | Phone Number | | Organization | | | | + + + + + | [facility] | [address] | [place] [address] | [phone] | + + + + + Type and Screen (12/14/2019 10:20 AM PDT)Only the most recent of 3 results within the time period is included. + + + + + + | Component | Value | Ref Range | Performed | Pathologist | | | | | At | Signature | + + + + + + | ABO Rh | O POSITIVE | | [facility] | | | | | | LABORATORY | | + + + + + + | Antibody | NEGATIVE | | [facility] | | | Screen | | | LABORATORY | | + + + + + + | BB BAND | [id number] | | [facility] | | | | | | LABORATORY | | + + + + + + | UNIT # | [id number] | | [facility] | | | | | | LABORATORY | | + + + + + + | Product | LEUKODEPLETED PC | | [facility] | | | Code | | | LABORATORY | | + + + + + + | Unit | 00 | | [facility] | | | Division | | | LABORATORY | | + + + + + + | Unit Status | ISSUED,FINAL | | [facility] | | | | | | LABORATORY | | + + + + + + | Transfusion | OK TO TRANSFUSE | | [facility] | | | Status | | | LABORATORY | | + + + + + + | CROSSMATCH | COMPATIBLETesting | | [facility] | | | RESULT | performed at [facility];[address] | | LABORATORY | | | | [address];[place], [place] | | | | | | [address] | | | | + + + + + + | UNIT # | [id number] | | [facility] | | | | | | LABORATORY | | + + + + + + | Product | LEUKODEPLETED PC | | [facility] | | | Code | | | LABORATORY | | + + + + + + | Unit | 00 | | [facility] | | | Division | | | LABORATORY | | + + + + + + | Unit Status | REL FROM ALLOC | | [facility] | | | | | | LABORATORY | | + + + + + + | Transfusion | OK TO TRANSFUSE | | [facility] | | | Status | | | LABORATORY | | + + + + + + | CROSSMATCH | COMPATIBLE | | [facility] | | | RESULT | | | LABORATORY | | + + + + + + + + | Specimen | + + | Blood | + + + + + + + | Performing | Address | City/State/Zipcode | Phone Number | | Organization | | | | + + + + + | [facility] | [address] | [place] [address] | [phone] | + + + + + VAS Lower Extremity Venous Bilateral (12/13/2019 6:11 AM PDT) + + | Specimen | + + | | + + + + + | Impressions | Performed At | + + + | Bilateral lower extremity ultrasound negative for DVT. | [facility] | | Signed by: Jesus Santos, Brendon Hidalgo Date/Time: 12/13/2019 6:13 AM | | | | | + + + + + + | Narrative | Performed At | + + + | VENOUS BILATERAL FOR DVT ONLY CLINICAL INFORMATION: Leg | [facility] | | swelling COMPARISON: None PROCEDURE: Duplex and color | | | Doppler evaluation of the veins of the lower extremities including | | | compression, spectral analysis and Doppler response to distal | | | compression, Valsalva, and/or other maneuvers. FINDINGS: Right | | | Lower Extremity: The common femoral vein, femoral vein and popliteal | | | vein are compressible with normal augmentation. Greater saphenous | | | vein unremarkable. Left Lower Extremity: The common femoral | | | vein, femoral vein and popliteal vein are compressible with normal | | | augmentation. Greater saphenous vein unremarkable. | | + + + + + | Procedure Note | + + | Eldon Gibbs Results In - 12/13/2019 6:17 AM PDT | | VENOUS BILATERAL FOR DVT ONLY | | | | CLINICAL INFORMATION: | | Leg swelling | | | | COMPARISON: | | None | | | | PROCEDURE: | | Duplex and color Doppler evaluation of the veins of the lower | | extremities including compression, spectral analysis and Doppler | | response to distal compression, Valsalva, and/or other maneuvers. | | | | FINDINGS: | | Right Lower Extremity: | | The common femoral vein, femoral vein and popliteal vein are | | compressible with normal augmentation. Greater saphenous vein | | unremarkable. | | | | Left Lower Extremity: | | The common femoral vein, femoral vein and popliteal vein are | | compressible with normal augmentation. Greater saphenous vein | | unremarkable. | | | | IMPRESSION: | | Bilateral lower extremity ultrasound negative for DVT. | | | | | | | | Signed by: Jesus Santos Zachary | | Sign Date/Time: 12/13/2019 6:13 AM | + + + +---------+ + + | Performing | Address | City/State/Zipcode | Phone Number | | Organization | | | | + +---------+ + + | [facility] | | | | + +---------+ + + US Abdomen Limited (12/13/2019 5:10 AM PDT) + + | Specimen | + + | | + + + + + | Impressions | Performed At | + + + | 1. Nonspecific gallbladder wall thickening without cholelithiasis. | [facility] | | While this could reflect acalculus cholecystitis in the correct | | | clinical setting there are multiple additional potential sources to | | | include generalized edema, hepatitis, hypoproteinemia. 2. | | | Hepatomegaly. 3. Moderate right pleural effusion. Signed | | | by: Jesus Ley, Ovidio Hidalgo Date/Time: 12/13/2019 6:26 AM | | + + + + + + | Narrative | Performed At | + + + | ULTRASOUND ABDOMEN, LIMITED CLINICAL INFORMATION: Fever of | [facility] | | unknown origin. COMPARISON: CT CHEST ABDOMEN PELVIS W CONTRAST | | | (12/12/2019); XR ABDOMEN 1 VW (12/04/2019); PROCEDURE: Evaluation | | | of the gallbladder, if present, common bile duct, liver, and right | | | kidney. FINDINGS: Liver: Liver is enlarged with a craniocaudal | | | length of approximately 23.9 cm. No focal hepatic parenchymal mass. | | | Normal hepatic attenuation.. Main portal and hepatic veins are | | | patent. Gallbladder/Bile Duct: There is gallbladder wall | | | thickening measuring approximately 6 mm. There are no gallstones. | | | No pericholecystic fluid. Common bile duct not well visualized. | | | Right kidney: 12.9 cm. No solid renal mass, hydronephrosis or | | | definitive calculi. IVC normal. Moderate right pleural | | | effusion.. | | + + + + + | Procedure Note | + + | Sai, Rad Results In 12/13/2019 6:29 AM PDT | | ULTRASOUND ABDOMEN, LIMITED | | | | CLINICAL INFORMATION: | | Fever of unknown origin. | | | | COMPARISON: | | CT CHEST ABDOMEN PELVIS W CONTRAST (12/12/2019); XR ABDOMEN 1 VW | | (12/04/2019); | | | | PROCEDURE: | | Evaluation of the gallbladder, if present, common bile duct, liver, and | | right kidney. | | | | FINDINGS: | | Liver: Liver is enlarged with a craniocaudal length of approximately | | 23.9 cm. No focal hepatic parenchymal mass. Normal hepatic | | attenuation.. Main portal and hepatic veins are patent. | | | | Gallbladder/Bile Duct: There is gallbladder wall thickening measuring | | approximately 6 mm. There are no gallstones. No pericholecystic | | fluid. Common bile duct not well visualized. | | | | Right kidney: 12.9 cm. No solid renal mass, hydronephrosis or | | definitive calculi. | | | | IVC normal. Moderate right pleural effusion.. | | | | IMPRESSION: | | 1. Nonspecific gallbladder wall thickening without cholelithiasis. | | While this could reflect acalculus cholecystitis in the correct | | clinical setting there are multiple additional potential sources to | | include generalized edema, hepatitis, hypoproteinemia. | | 2. Hepatomegaly. | | 3. Moderate right pleural effusion. | | | | | | | | | | Signed by: Jesus Ley James | | Sign Date/Time: 12/13/2019 6:26 AM | + + + +---------+ + + | Performing | Address | City/State/Zipcode | Phone Number | | Organization | | | | + +---------+ + + | [facility] | | | | + +---------+ + + Triglycerides (12/13/2019 4:53 AM PDT)Only the most recent of 2 results within the time chanell recinos is included. + + + + + + | Component | Value | Ref Range | Performed | Pathologist | | | | | At | Signature | + + + + + + | Triglycerid | 144Comment: Testing | <150 mg/dL | [facility] | | | es | performed at [facility], [address] | | LABORATORY | | | | [address], | | | | | | [place] [address] | | | | + + + + + + + + | Specimen | + + | Blood | + + + + + + + | Performing | Address | City/State/Zipcode | Phone Number | | Organization | | | | + + + + + | [facility] | [address] | [place] [address] | [phone] | + + + + + TSH (12/13/2019 12:30 AM PDT) + + + + + + | Component | Value | Ref Range | Performed | Pathologist | | | | | At | Signature | + + + + + + | TSH | 3.888Comment: Testing | 0.450 - 5.100 | [facility] | | | | performed at [facility];[address] | uIU/mL | LABORATORY | | | | [address];[place], [place] | | | | | | [address] | | | | + + + + + + + + | Specimen | + + | Blood | + + + + + + + | Performing | Address | City/State/Zipcode | Phone Number | | Organization | | | | + + + + + | [facility] | [address] [address] | [place] [address] | [phone] | + + + + + CT Chest Abdomen Pelvis w Contrast (12/12/2019 9:15 PM PDT) + + | Specimen | + + | | + + + + + | Impressions | Performed At | + + + | 1. Moderate to large pericardial effusion measuring up to 2.4 cm | [facility] | | thickness overlying the right atrium. This effusion appears new when | | | compared to echocardiogram report from 12/08/2019. Consider | | | diagnostic pericardiocentesis. 2. Moderate right and small left | | | pleural effusions with severe bilateral lower lobe collapse. 3. | | | Small contrast filling defects distal right main pulmonary artery | | | extending into the right lower lobe segmental arteries, probable | | | pulmonary emboli. 4. Decreasing size of multifocal splenic | | | subcapsular subacute infarcts. 5. Diffuse extensive gallbladder wall | | | thickening could be secondary to 3rd spacing although acute | | | cholecystitis cannot be excluded. Signed by: Jesus Santos, | | | Brendon Sign Date/Time: 12/12/2019 10:07 PM | | + + + + + + | Narrative | Performed At | + + + | CT CHEST ABDOMEN AND PELVIS WITH CONTRAST CLINICAL | [facility] | | INFORMATION: Fever of unknown origin. Per ID. Status post | | | endocarditis. COMPARISON: XR CHEST AP PORTABLE (12/12/2019); XR | | | CHEST AP PORTABLE (12/11/2019); XR CHEST AP PORTABLE (12/10/2019); CT | | | CHEST WO CONTRAST (12/07/2019); CTCHEST (12/01/2019); CTABDPEL | | | (12/01/2019); PROCEDURE: Axial images through the chest, abdomen | | | and pelvis after the administration of 100 ml Omnipaque 350 | | | intravenous contrast. Multiplanar reconstructions. At least one | | | of the following CT dose optimization techniques were used: Automated | | | exposure control; Adjustment of mA and/or kV according to patient | | | size; Use of iterative reconstruction technique. FINDINGS: CHEST | | | Lungs, Pleura and Airways: Endotracheal tube tip above the level of | | | the edgardo. Moderate right and small left pleural effusions with | | | severe bilateral lower lobe collapse. Mediastinum: Artificial mitral | | | and aortic valves. Moderate to large pericardial effusion | | | measuring up to 2.4 cm in maximum thickness overlying the right | | | atrium, . This pericardial effusion appears new when compared | | | to echocardiogram report from 12/08/2019. Lymph Nodes: No adenopathy. | | | Small contrast filling defects in the distal right main pulmonary | | | artery extending into the right lower lobe pulmonary arteries. | | | Appearance suspicious for pulmonary embolism, -. ABDOMEN | | | Liver and Biliary: Normal liver. Diffuse extensive gallbladder wall | | | thickening. No biliary dilation. Pancreas, Spleen and Adrenals: | | | Decreasing size of multifocal splenic subcapsular hypoattenuating | | | foci probably representing subacute infarcts. Normal adrenal glands | | | and pancreas. Kidneys: No hydronephrosis, calculus or solid renal | | | mass. ABDOMEN AND PELVIS Bowel: No small bowel or colonic | | | dilation or adjacent inflammation. No appendiceal dilation or | | | inflammation. Vessels: No significant abnormality in the aorta or its | | | proximal branches. No significant abnormality in the portal veins, | | | mesenteric veins or systemic veins. Lymph Nodes: No adenopathy. | | | Peritoneum and Retroperitoneum: No intraperitoneal free air. No | | | peritoneal mass. Small volume pelvic simple free fluid. PELVIS | | | Genitourinary: Bladder is partially distended around a Langston catheter. | | | No pelvic masses. BODY WALL Soft Tissues: No bowel or inflamed | | | fat containing hernia, mass or hemorrhage. Bones: No acute fracture | | | or vertebral end plate destruction. No lytic or blastic lesion. | | + + + + + | Procedure Note | + + | Sai, Rad Results In - 12/12/2019 10:10 PM PDT | | CT CHEST ABDOMEN AND PELVIS WITH CONTRAST | | | | CLINICAL INFORMATION: | | Fever of unknown origin. Per ID. Status post endocarditis. | | | | COMPARISON: | | XR CHEST AP PORTABLE (12/12/2019); XR CHEST AP PORTABLE (12/11/2019); XR | | CHEST AP PORTABLE (12/10/2019); CT CHEST WO CONTRAST (12/07/2019); | | CTCHEST (12/01/2019); CTABDPEL (12/01/2019); | | | | PROCEDURE: | | Axial images through the chest, abdomen and pelvis after the | | administration of 100 ml Omnipaque 350 intravenous contrast. | | Multiplanar reconstructions. | | | | At least one of the following CT dose optimization techniques were | | used: Automated exposure control; Adjustment of mA and/or kV according | | to patient size; Use of iterative reconstruction technique. | | | | FINDINGS: | | CHEST | | Lungs, Pleura and Airways: Endotracheal tube tip above the level of the | | edgardo. Moderate right and small left pleural effusions with severe | | bilateral lower lobe collapse. | | Mediastinum: Artificial mitral and aortic valves. Moderate to large | | pericardial effusion measuring up to 2.4 cm in maximum thickness | | overlying the right atrium, . This pericardial effusion appears | | new when compared to echocardiogram report from 12/08/2019. | | Lymph Nodes: No adenopathy. | | | | Small contrast filling defects in the distal right main pulmonary | | artery extending into the right lower lobe pulmonary arteries. | | Appearance suspicious for pulmonary embolism, -. | | | | ABDOMEN | | Liver and Biliary: Normal liver. Diffuse extensive gallbladder wall | | thickening. No biliary dilation. | | Pancreas, Spleen and Adrenals: Decreasing size of multifocal splenic | | subcapsular hypoattenuating foci probably representing subacute | | infarcts. Normal adrenal glands and pancreas. | | Kidneys: No hydronephrosis, calculus or solid renal mass. | | | | ABDOMEN AND PELVIS | | Bowel: No small bowel or colonic dilation or adjacent inflammation. No | | appendiceal dilation or inflammation. | | Vessels: No significant abnormality in the aorta or its proximal | | branches. No significant abnormality in the portal veins, mesenteric | | veins or systemic veins. | | Lymph Nodes: No adenopathy. | | Peritoneum and Retroperitoneum: No intraperitoneal free air. No | | peritoneal mass. Small volume pelvic simple free fluid. | | | | PELVIS | | Genitourinary: Bladder is partially distended around a Langston catheter. | | No pelvic masses. | | | | BODY WALL | | Soft Tissues: No bowel or inflamed fat containing hernia, mass or | | hemorrhage. | | Bones: No acute fracture or vertebral end plate destruction. No lytic | | or blastic lesion. | | | | IMPRESSION: | | 1. Moderate to large pericardial effusion measuring up to 2.4 cm | | thickness overlying the right atrium. This effusion appears new when | | compared to echocardiogram report from 12/08/2019. Consider diagnostic | | pericardiocentesis. | | 2. Moderate right and small left pleural effusions with severe | | bilateral lower lobe collapse. | | 3. Small contrast filling defects distal right main pulmonary artery | | extending into the right lower lobe segmental arteries, probable | | pulmonary emboli. | | 4. Decreasing size of multifocal splenic subcapsular subacute infarcts. | | 5. Diffuse extensive gallbladder wall thickening could be secondary to | | 3rd spacing although acute cholecystitis cannot be excluded. | | | | | | | | Signed by: Jesus Santos Zachary | | Sign Date/Time: 12/12/2019 10:07 PM | + + + +---------+ + + | Performing | Address | City/State/Zipcode | Phone Number | | Organization | | | | + +---------+ + + | [facility] | | | | + +---------+ + + Hepatic Function Panel (12/12/2019 4:14 AM PDT) + + + + + + | Component | Value | Ref Range | Performed | Pathologist | | | | | At | Signature | + + + + + + | Protein, | 5.1 (L) | 6.3 - 8.2 g/dL | [facility] | | | Total | | | LABORATORY | | + + + + + + | Albumin | 2.5 (L) | 3.6 - 5.0 g/dL | [facility] | | | | | | LABORATORY | | + + + + + + | BILIRUBIN, | 1.2 | 0.1 - 1.5 mg/dL | [facility] | | | TOTAL | | | LABORATORY | | + + + + + + | Bilirubin | 0.9 (H) | 0.0 - 0.3 mg/dL | [facility] | | | Direct | | | LABORATORY | | + + + + + + | ALK PHOS | 335 (H) | 35 - 115 U/L | [facility] | | | | | | LABORATORY | | + + + + + + | AST | 48 (H) | 10 - 45 U/L | [facility] | | | | | | LABORATORY | | + + + + + + | ALT | 37Comment: Testing | 10 - 65 U/L | [facility] | | | | performed at [facility] | | LABORATORY | | | | [address];[place], [place] | | | | | | [address] | | | | + + + + + + + + | Specimen | + + | Blood | + + + + + + + | Performing | Address | City/State/Zipcode | Phone Number | | Organization | | | | + + + + + | [facility] | [address] | [place] [address] | [phone] | + + + + + Urinalysis with Microscopic if Indicated (12/12/2019 3:48 AM PDT) + + + + + + | Component | Value | Ref Range | Performed | Pathologist | | | | | At | Signature | + + + + + + | Color, UA | YELLOW | | [facility] | | | | | | LABORATORY | | + + + + + + | Clarity, UA | CLEAR | | [facility] | | | | | | LABORATORY | | + + + + + + | Specific | 1.019 | 1.002 - 1.030 | [facility] | | | [place], | | | LABORATORY | | | Urine | | | | | + + + + + + | Leukocyte | NEGATIVE | NEG | [facility] | | | esterase, | | | LABORATORY | | | UA | | | | | + + + + + + | Nitrite, UA | NEGATIVE | NEG | [facility] | | | | | | LABORATORY | | + + + + + + | Urobilinoge | NORMAL | <1.6 mg/dL | [facility] | | | n, Ur | | | LABORATORY | | + + + + + + | Protein, | NEGATIVE | NEG mg/dL | [facility] | | | Urine | | | LABORATORY | | | (mg/dL) | | | | | + + + + + + | pH, Urine | 5.0 | 5.0 - 8.0 | [facility] | | | | | | LABORATORY | | + + + + + + | Blood, UA | SMALL (A) | NEG | [facility] | | | | | | LABORATORY | | + + + + + + | Ketones, UA | NEGATIVE | NEG mg/dL | [facility] | | | | | | LABORATORY | | + + + + + + | Bilirubin, | NEGATIVE | NEG | [facility] | | | UA | | | LABORATORY | | + + + + + + | Glucose, Ur | NEGATIVE | NEG mg/dL | [facility] | | | | | | LABORATORY | | + + + + + + | WBC UA | 0-2 | 0 - 5 /hpf | [facility] | | | | | | LABORATORY | | + + + + + + | Red Blood | 11-15 | 0 - 2 /hpf | [facility] | | | Cells, | | | LABORATORY | | | Urine | | | | | + + + + + + | Bacteria, | 1+ (A) | NONE | [facility] | | | Urine | | | LABORATORY | | + + + + + + | Squamous | 3-5 | /lpf | [facility] | | | Epithelial | | | LABORATORY | | | Cells, | | | | | | Urine | | | | | + + + + + + | Budding | 1+ | /hpf | [facility] | | | Yeast, | | | LABORATORY | | | Urine | | | | | + + + + + + | Mucus, | 1+Comment: Testing | | [facility] | | | Urine | performed at [facility] | | LABORATORY | | | | [facility];[place], [place] | | | | | | [address] | | | | + + + + + + + + | Specimen | + + | Urine - Urine | | specimen obtained by | | single | | catheterization of | | bladder (specimen) | + + + + + + + | Performing | Address | City/State/Zipcode | Phone Number | | Organization | | | | + + + + + | [facility] | [address] | [place] [address] | [phone] | + + + + + Culture, Respiratory, Lower, Smear (12/12/2019 3:47 AM PDT) + + + + + + | Component | Value | Ref Range | Performed | Pathologist | | | | | At | Signature | + + + + + + | Gram Stain | GREATER THAN 10 WBCS/LPF | | [facility] | | | Result | | | LABORATORY | | + + + + + + | Gram Stain | LESS THAN 10 SEC/LPF | | [facility] | | | Result | | | LABORATORY | | + + + + + + | Gram Stain | 3+ | | [facility] | | | Result | GRAM POSITIVE COCCI | | LABORATORY | | | | | | | | + + + + + + | Gram Stain | 2+ | | [facility] | | | Result | GRAM POSITIVE DIPLOCOCCI | | LABORATORY | | | | | | | | + + + + + + | Gram Stain | Testing performed at | | [facility] | | | Result | [facility] | | LABORATORY | | | | [address];[place] [address] | | | | + + + + + + | RESULT | 3+ | | [facility] | | | | STAPHYLOCOCCUS AUREUS | | LABORATORY | | | | (A) | | | | + + + + + + | RESULT | 2+NORMAL UPPER | | [facility] | | | | RESPIRATORY KEVIN | | LABORATORY | | | | | | | | + + + + + + | RESULT | Testing performed at | | [facility] | | | | [facility], [address] | | LABORATORY | | | | [place], [place] | | | | | | [address] | | | | + + + + + + + + | Specimen | + + | Body Fluid - Sputum | | specimen obtained by | | aspiration | | (specimen) | + + + + +--------+ + | Organism | Antibiotic | Method | Susceptibility | + + +--------+ + | Staphylococcus | Penicillin G | ALVAREZ | RESISTANT: | | aureus | | | Resistant | + + +--------+ + | Staphylococcus | Clindamycin | ALVAREZ | RESISTANT: | | aureus | | | Resistant | + + +--------+ + | Staphylococcus | Erythromycin | ALVAREZ | RESISTANT: | | aureus | | | Resistant | + + +--------+ + | Staphylococcus | Gentamicin | ALVAREZ | SUSCEPTIBLE: | | aureus | | | Sensitive | + + +--------+ + | Staphylococcus | Levofloxacin | ALVAREZ | SUSCEPTIBLE: | | aureus | | | Sensitive | + + +--------+ + | Staphylococcus | Moxifloxacin | ALVAREZ | SUSCEPTIBLE: | | aureus | | | Sensitive | + + +--------+ + | Staphylococcus | Oxacillin | ALVAREZ | SUSCEPTIBLE: | | aureus | | | Sensitive | + + +--------+ + | Staphylococcus | Tetracycline | ALVAREZ | SUSCEPTIBLE: | | aureus | | | Sensitive | + + +--------+ + | Staphylococcus | Trimethoprim + | ALVAREZ | SUSCEPTIBLE: | | aureus | Sulfamethoxazole | | Sensitive | + + +--------+ + | Staphylococcus | Vancomycin | ALVAREZ | SUSCEPTIBLE: | | aureus | | | Sensitive | + + +--------+ + +---+ + | | Comment: Testing | | | performed at [facility], | | | [address], | | | [place] [address] | +---+ + + + + + + | Performing | Address | City/State/Zipcode | Phone Number | | Organization | | | | + + + + + | [facility] | [address] | [place] [address] | [phone] | + + + + + Culture, Blood (12/11/2019 10:53 PM PDT)Only the most recent of 6 results within the time oscar loaiza is included. + + + + + + | Component | Value | Ref Range | Performed | Pathologist | | | | | At | Signature | + + + + + + | Special | ART LINE | | [facility] | | | Requests | | | LABORATORY | | + + + + + + | Special | Testing performed at | | [facility] | | | Requests | [facility] | | LABORATORY | | | | [place] [address] | | | | + + + + + + | RESULT | NO GROWTH 6 DAYS | | [facility] | | | | | | LABORATORY | | + + + + + + | RESULT | Testing performed at | | [facility] | | | | [facility], [address] | | LABORATORY | | | | [address], [place] | | | | | | [id number]: Testing | | | | | | performed at [facility], [address] | | | | | [address], [place], [place] | | | | | | [address] | | | | + + + + + + + + | Specimen | + + | Blood - Peripheral | | blood specimen | | (specimen) | + + + + + + + | Performing | Address | City/State/Zipcode | Phone Number | | Organization | | | | + + + + + | [facility] | [address] | [place] [address] | [phone] | + + + + + HIV 1/2 Antibody Differentiation (12/10/2019 12:00 PM PDT) + + + + + + | Component | Value | Ref Range | Performed | Pathologist | | | | | At | Signature | + + + + + + | HIV 1 Ab | Negative | Negative | [facility] | | | | | | LABORATORY | | + + + + + + | HIV 2 Ab | Negative | Negative | [facility] | | | | | | LABORATORY | | + + + + + + | Interpretat | NegativeComment: | | [facility] | | | ion, HIV | Recommend follow-up | | LABORATORY | | | | testing for HIV-1 | | | | | | RNA.Testing performed at | | | | | | [facility], [address], | | | | | | [address], [facility] | | | | | | [address] | | | | + + + + + + + + | Specimen | + + | | + + + + + + + | Performing | Address | City/State/Zipcode | Phone Number | | Organization | | | | + + + + + | [facility] | [address] | [place] [address] | [phone] | + + + + + Product: Platelets (12/09/2019 6:36 AM PDT)Only the most recent of 5 results within the ti in period is included. + + + + + + | Component | Value | Ref Range | Performed | Pathologist | | | | | At | Signature | + + + + + + | Product | PLATELET GROUP | | [facility] | | | Code | | | LABORATORY | | + + + + + + | Units | 1 | | [facility] | | | ordered | | | LABORATORY | | + + + + + + | BLOOD BANK | ORDER RECEIVED IN BLOOD | | [facility] | | | COMMENT | BANK. | | LABORATORY | | + + + + + + | UNIT # | [id number] | | [facility] | | | | | | LABORATORY | | + + + + + + | Product | PAS PARKER LUNA C | | [facility] | | | Code | | | LABORATORY | | + + + + + + | Unit | 00 | | [facility] | | | Division | | | LABORATORY | | + + + + + + | Unit Status | ISSUED,FINAL | | [facility] | | | | | | LABORATORY | | + + + + + + | Transfusion | OK TO TRANSFUSETesting | | [facility] | | | Status | performed at [facility] | | LABORATORY | | | | [address];[place] | | | | | | [address] | | | | + + + + + + + + | Specimen | + + | | + + + + + + + | Performing | Address | City/State/Zipcode | Phone Number | | Organization | | | | + + + + + | [facility] | [address] | [place] [address] | [phone] | + + + + + POC ISDOROTEO, CG8, Arterial (12/09/2019 3:19 AM PDT)Only the most recent of 13 results within the time period is included. + + + + + + | Component | Value | Ref Range | Performed | Pathologist | | | | | At | Signature | + + + + + + | FiO2, POC | 45 | % | [facility] | | | | | | LABORATORY | | + + + + + + | pH, | 7.493 (H) | 7.350 - 7.450 | [facility] | | | Arterial, | | | LABORATORY | | | POC | | | | | + + + + + + | pCO2, | 31 (L) | 35 - 45 mmHg | [facility] | | | Arterial | | | LABORATORY | | + + + + + + | pO2, | 105 | 80 - 105 mmHg | [facility] | | | Arterial | | | LABORATORY | | + + + + + + | HCO3, | 24 | 22 - 26 mmol/L | [facility] | | | Arterial | | | LABORATORY | | + + + + + + | TCO2, | 25 | 23 - 27 mEq/L | [facility] | | | Arterial, | | | LABORATORY | | | POC | | | | | + + + + + + | Base | 1 | 0 - 3 mEq/L | [facility] | | | Excess, POC | | | LABORATORY | | + + + + + + | SO2, | 99 (H) | 95 - 98 % | [facility] | | | Arterial, | | | LABORATORY | | | POC | | | | | + + + + + + | Sodium, POC | 143 | 135 - 145 mEq/L | [facility] | | | | | | LABORATORY | | + + + + + + | Potassium, | 5.0 | 3.5 - 5.0 mEq/L | [facility] | | | POC | | | LABORATORY | | + + + + + + | Ionized | 1.03 (L) | 1.12 - 1.32 | [facility] | | | Calcium, | | mmol/L | LABORATORY | | | POC | | | | | + + + + + + | Glucose, | 149 (H) | 65 - 99 mg/dL | [facility] | | | POC | | | LABORATORY | | + + + + + + | Hematocrit, | 29 (L) | 40.0 - 50.0 % | [facility] | | | POC | | | LABORATORY | | + + + + + + | Hemoglobin, | 9.9 (L)Comment: Testing | 13.7 - 16.7 | [facility] | | | POC | performed at [facility];[address] | g/dL | LABORATORY | | | | [address];[place], [place] | | | | | | [address] | | | | + + + + + + + + | Specimen | + + | | + + + + + + + | Performing | Address | City/State/Zipcode | Phone Number | | Organization | | | | + + + + + | [facility] | [address] | [place] [address] | [phone] | + + + + + Red Blood Cells-Transfuse (12/09/2019 2:35 AM PDT)Only the most recent of 3 results within the time period is included.Platelets (PLT) - Transfuse (12/09/2019 2:12 AM PDT)Only the m ost recent of 3 results within the time period is included.Calcium, Ionized, Venous ( 020 12:58 AM PDT)Only the most recent of 2 results within the time period is included. + + + + + + | Component | Value | Ref Range | Performed | Pathologist | | | | | At | Signature | + + + + + + | Calcium, | 0.93 (L) | 1.08 - 1.25 | [facility] | | | Ionized | | mmol/L | LABORATORY | | + + + + + + | pH, Venous | 7.404Comment: Testing | 7.300 - 7.450 | [facility] | | | | performed at [facility] | | LABORATORY | | | | [address];[place], [place] | | | | | | [address] | | | | + + + + + + + + | Specimen | + + | Blood | + + + + + + + | Performing | Address | City/State/Zipcode | Phone Number | | Organization | | | | + + + + + | [facility] | [address] | [place] [address] | [phone] | + + + + + Fibrinogen (12/09/2019 12:56 AM PDT)Only the most recent of 3 results within the time perio d is included. + + + + + + | Component | Value | Ref Range | Performed | Pathologist | | | | | At | Signature | + + + + + + | Fibrinogen | 214Comment: Testing | 200 - 450 mg/dL | [facility] | | | | performed at [facility] | | LABORATORY | | | | [address];[place], [place] | | | | | | [address] | | | | + + + + + + + + | Specimen | + + | Blood | + + + + + + + | Performing | Address | City/State/Zipcode | Phone Number | | Organization | | | | + + + + + | [facility] | [address] | [place] [address] | [phone] | + + + + + Hemoglobin A1C (12/09/2019 12:56 AM PDT) + + + + + + | Component | Value | Ref Range | Performed | Pathologist | | | | | At | Signature | + + + + + + | Hemoglobin | 5.4Comment: HbA1c method | 4.0 - 6.0 % | [facility] | | | A1c | is certified by [employer] | | LABORATORY | | | | and traceable to the | | | | | | DCCT reference | | | | | | method.ADA guidelines | | | | | | indicate: | | | | | | Prediabetes: 5.7 - 6.4 | | | | | | Diabetes: >6.4 | | | | | | Glycemic control for | | | | | | adults with diabetes: | | | | | | <7.0 | | | | + + + + + + | Estimated | 108Comment: Estimated | <154 mg/dL | [facility] | | | Average | Average Glucose | | LABORATORY | | | Glucose | calculated from | | | | | | hemoglobin A1c by use of | | | | | | the ADArecommended | | | | | | formula.Testing | | | | | | performed at [facility], [address] | | | | | [facility], | | | | | | [place] [address] | | | | + + + + + + + + | Specimen | + + | Blood | + + + + + + + | Performing | Address | City/State/Zipcode | Phone Number | | Organization | | | | + + + + + | [facility] | [address] | [place] [address] | [phone] | + + + + + ECHO Transesophageal (GURDEEP) (12/09/2019 12:09 AM PDT)Only the most recent of 2 results withi n the time period is included. + +-------+ + + + | Component | Value | Ref Range | Performed | Pathologist | | | | | At | Signature | + +-------+ + + + | LVEF-GURDEEP | 66 | | [facility] | | | TRANSESOPHA | | | | | | GEAL ECHO | | | | | + +-------+ + + + + + | Specimen | + + | | + + + + + | Narrative | Performed At | + + + | | [facility] | | Transesophageal Echocardiography Report (GURDEEP) Demographics Patient | | | Name CINDY ABERNATHY Room Number 22402 | | | SIMBA Patient Number [id number] Date of Study | | | 12/08/2019 Visit Number [id number] | | | Referring Physician MERRY RINCON Accession | | | [id number] [employer] Number Date of 1985 | | | Interpreting ZACH HEMPHILL MD | | | 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 Procedure DateDate: 12/08/2019 Start: 04:18 PM Study Location: | | | ORTechnical Quality: Good visualization Patient Status: STAT Height: | | | 66 inches Weight: 232 pounds BSA: 2.13 m^2 BMI: 37.45 kg/m^2 Rhythm: | | | Normal Sinus Rhythm O2 Saturation: 98 % Conclusions Summary | | | preoperatively, pt had servere aortic insufficiency due to large | | | vegetations on the aortic valve, also vegetation seen on the mitral | | | valve. postoperatively after mitral valve and aortic valve | | | replacement. no significant aortic perivalvular leak seen on the echo. | | | mitral valve appears functioning well without any regurgitation. no | | | other significant changes. Signature | | | | | | Electronically signed by ZACH HEMPHILL MD (Interpreting physician) on | | | 12/11/2019 at 05:15 PM | | | GURDEEP | | | Performed By: Dr. Hemphill Type of Anesthesia: General anesthesia | | | Structures Left Atrium Left Atrium Findings Normal size left atrium. | | | Left Ventricle EF Estimated: 66% Left Ventricle Findings no wall | | | motion abnormalies. hyperdynamic heart contraction. Right Atrium | | | Right Atrium Findings Normal right atrial size. Right Ventricle | | | Right Ventricle Findings Normal right ventricular size. Right | | | ventricle global systolic function is normal. TAPSE = cm. | | | Miscellaneous Miscellaneous Findingsnormal ascending diameters. no | | | significant atherosclerosis of the aorta Pericardium Pericardial | | | Effusion Findings No evidence of pericardial effusion. Pleura | | | Pleural Effusion Findings No evidence of pleural effusion. Valves | | | Mitral Valve Mitral Valve Findings mitral valve motion is normal, | | | trace to small mitral valve regurgitation. there is a vegetation seen | | | at tip of anterior leaflet. Aortic Valve Aortic Valve Findings | | | aortic valve is grossly abnormal, embeded in large vegetations. severe | | | aortic insufficiency. no apparent aortic stenosis. Tricuspid Valve | | | Tricuspid Valve Findings Structurally normal tricuspid valve without | | | significant stenosis or regurgitation. Unable to accurately assess RV | | | systolic pressures in the absence of significant tricuspid | | | regurgitation. Pulmonic Valve Pulmonic Valve Findings Normal | | | pulmonic valve structure and function. Normal pulmonary valve and RVOT | | | flow by color and Doppler flow imaging. | | | changes. | | | | | | Signature | | | | | | | | | | | | | | | | | |GURDEEP Performed By: Dr. Hemphill | | | | | | Type of Anesthesia: General anesthesia | | | | | |Structures | | | | | | Left Atrium | | | | | | Left Atrium Findings | | | Normal size left atrium. | | | | | | Left Ventricle | | | | | | EF Estimated: 66% | | | | | | Left Ventricle Findings | | | no wall motion abnormalies. hyperdynamic heart contraction. | | | | | | Right Atrium | | | | | | Right Atrium Findings | | | Normal right atrial size. | | | | | | Right Ventricle | | | | | | Right Ventricle Findings | | | Normal right ventricular size. | | | Right ventricle global systolic function is normal. | | | TAPSE = cm. | | | | | |Miscellaneous | | | | | |Miscellaneous Findings | | |normal ascending diameters. no significant atherosclerosis of the aorta | | | | | | Pericardium | | | | | | Pericardial Effusion Findings | | | No evidence of pericardial effusion. | | | | | | Pleura | | | | | | Pleural Effusion Findings | | | No evidence of pleural effusion. | | | | | |Valves | | | | | | Mitral Valve | | | | | | Mitral Valve Findings | | | mitral valve motion is normal, trace to small mitral valve regurgitation. | | | there is a vegetation seen at tip of anterior leaflet. | | | | | | Aortic Valve | | | | | | Aortic Valve Findings | | | aortic valve is grossly abnormal, embeded in large vegetations. severe | | | aortic insufficiency. no apparent aortic stenosis. | | | | | | Tricuspid Valve | | | | | | Tricuspid Valve Findings | | | Structurally normal tricuspid valve without significant stenosis or | | | regurgitation. Unable to accurately assess RV systolic pressures in the | | | absence of significant tricuspid regurgitation. | | | | | | Pulmonic Valve | | | | | | Pulmonic Valve Findings | | | Normal pulmonic valve structure and function. Normal pulmonary valve and | | | RVOT flow by color and Doppler flow imaging. 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 | | postoperatively after mitral valve and aortic valve replacement. no significant aortic | | perivalvular leak seen on the echo. mitral valve appears functioning well without any | | regurgitation. no other significant changes. Signature | | | | GURDEEP Performed By: | | [place] Type of Anesthesia: General anesthesiaStructures Left Atrium Left Atrium Findings | | Normal size left atrium. Left Ventricle EF Estimated: 66% Left Ventricle Findings no | | wall motion abnormalies. hyperdynamic heart contraction. Right Atrium Right Atrium | | Findings Normal right atrial size. Right Ventricle Right Ventricle Findings Normal right | | ventricular size. Right ventricle global systolic function is normal. TAPSE = | | cm.MiscellaneousMiscellaneous Findingsnormal ascending diameters. no significant | | atherosclerosis of the aorta Pericardium Pericardial Effusion Findings No evidence of | | pericardial effusion. Pleura Pleural Effusion Findings No evidence of pleural | | effusion.Valves Mitral Valve Mitral Valve Findings mitral valve motion is normal, trace | | to small mitral valve regurgitation. there is a vegetation seen at tip of anterior | | leaflet. Aortic Valve Aortic Valve Findings aortic valve is grossly abnormal, embeded in | | large vegetations. severe aortic insufficiency. no apparent aortic stenosis. Tricuspid | | Valve Tricuspid Valve Findings Structurally normal tricuspid valve without significant | | stenosis or regurgitation. Unable to accurately assess RV systolic pressures in the | | absence of significant tricuspid regurgitation. Pulmonic Valve Pulmonic Valve Findings | | Normal pulmonic valve structure and function. Normal pulmonary valve and RVOT flow by | | color and Doppler flow imaging. | |Height: 66 inches Weight: 232 pounds BSA: 2.13 m^2 BMI: 37.45 kg/m^2 | | | |Rhythm: Normal Sinus Rhythm O2 Saturation: 98 % | | | | Conclusions | | | | Summary | | preoperatively, pt had servere aortic insufficiency due to large | | vegetations on the aortic valve, also vegetation seen on the mitral valve. | | postoperatively after mitral valve and aortic valve replacement. no | | significant aortic perivalvular leak seen on the echo. mitral valve | | appears functioning well without any regurgitation. no other significant | | changes. | | | | Signature | | | | | | | | | | | |GURDEEP Performed By: Dr. Hemphill | | | | Type of Anesthesia: General anesthesia | | | |Structures | | | | Left Atrium | | | | Left Atrium Findings | | Normal size left atrium. | | | | Left Ventricle | | | | EF Estimated: 66% | | | | Left Ventricle Findings | | no wall motion abnormalies. hyperdynamic heart contraction. | | | | Right Atrium | | | | Right Atrium Findings | | Normal right atrial size. | | | | Right Ventricle | | | | Right Ventricle Findings | | Normal right ventricular size. | | Right ventricle global systolic function is normal. | | TAPSE = cm. | | | |Miscellaneous | | | |Miscellaneous Findings | |normal ascending diameters. no significant atherosclerosis of the aorta | | | | Pericardium | | | | Pericardial Effusion Findings | | No evidence of pericardial effusion. | | | | Pleura | | | | Pleural Effusion Findings | | No evidence of pleural effusion. | | | |Valves | | | | Mitral Valve | | | | Mitral Valve Findings | | mitral valve motion is normal, trace to small mitral valve regurgitation. | | there is a vegetation seen at tip of anterior leaflet. | | | | Aortic Valve | | | | Aortic Valve Findings | | aortic valve is grossly abnormal, embeded in large vegetations. severe | | aortic insufficiency. no apparent aortic stenosis. | | | | Tricuspid Valve | | | | Tricuspid Valve Findings | | Structurally normal tricuspid valve without significant stenosis or | | regurgitation. Unable to accurately assess RV systolic pressures in the | | absence of significant tricuspid regurgitation. | | | | Pulmonic Valve | | | | Pulmonic Valve Findings | | Normal pulmonic valve structure and function. Normal pulmonary valve and | | RVOT flow by color and Doppler flow imaging. | + + + +---------+ + + | Performing | Address | City/State/Zipcode | Phone Number | | Organization | | | | + +---------+ + + | [facility] | | | | + +---------+ + + POC CG 4, ISTAT Arterial (12/08/2019 11:16 PM PDT)Only the most recent of 7 results within the time period is included. + + + + + + | Component | Value | Ref Range | Performed | Pathologist | | | | | At | Signature | + + + + + + | pH, | 7.230 (LL)Comment: This | 7.350 - 7.450 | [facility] | | | Arterial, | test was developed and | | LABORATORY | | | POC | its performance | | | | | | characteristics | | | | | | determined byAbbott, it | | | | | | has not been cleared or | | | | | | approved by the [place] FDA. | | | | | | Clinicians should | | | | | | beadvised to consider a | | | | | | patient's signs, | | | | | | symptoms, history, and | | | | | | results of | | | | | | otherdiagnostic tests | | | | | | when interpreting | | | | | | results from these | | | | | | cartridges. | | | | + + + + + + | pCO2, | 60 (H) | 35 - 45 mmHg | [facility] | | | Arterial | | | LABORATORY | | + + + + + + | pO2, | 230 (HH) | 80 - 105 mmHg | [facility] | | | Arterial | | | LABORATORY | | + + + + + + | Lactate, | 2.94 (H) | 0.36 - 1.25 | [facility] | | | Arterial, | | mmol/L | LABORATORY | | | POC | | | | | + + + + + + | HCO3, | 25 | 22 - 26 mmol/L | [facility] | | | Arterial | | | LABORATORY | | + + + + + + | TCO2, | 27 | 23 - 27 mEq/L | [facility] | | | Arterial, | | | LABORATORY | | | POC | | | | | + + + + + + | POC Base | 3 (H) | 0.0 - 2.0 | [facility] | | | Deficit | | mmol/L | LABORATORY | | | mmol/L | | | | | + + + + + + | SO2, | 100 (H)Comment: Testing | 95 - 98 % | [facility] | | | Arterial, | performed at [facility] | | LABORATORY | | | POC | [facility], [place] | | | | | | [address] | | | | + + + + + + + + | Specimen | + + | | + + + + + + + | Performing | Address | City/State/Zipcode | Phone Number | | Organization | | | | + + + + + | [facility] | [address] | [place] [address] | [phone] | + + + + + Product: Plasma, Frozen <24 (12/08/2019 9:50 PM PDT) + + + + + + | Component | Value | Ref Range | Performed | Pathologist | | | | | At | Signature | + + + + + + | BLOOD BANK | ORDER RECEIVED IN BLOOD | | [facility] | | | COMMENT | BANK. | | LABORATORY | | + + + + + + | UNIT # | [id number] | | [facility] | | | | | | LABORATORY | | + + + + + + | Product | PLASMA,THAWED 5 DAY | | [facility] | | | Code | | | LABORATORY | | + + + + + + | Unit | 00 | | [facility] | | | Division | | | LABORATORY | | + + + + + + | Unit Status | ISSUED,FINAL | | [facility] | | | | | | LABORATORY | | + + + + + + | Transfusion | OK TO TRANSFUSE | | [facility] | | | Status | | | LABORATORY | | + + + + + + | UNIT # | [id number] | | [facility] | | | | | | LABORATORY | | + + + + + + | Product | PLASMA,THAWED 5 DAY | | [facility] | | | Code | | | LABORATORY | | + + + + + + | Unit | 00 | | [facility] | | | Division | | | LABORATORY | | + + + + + + | Unit Status | ISSUED,FINAL | | [facility] | | | | | | LABORATORY | | + + + + + + | Transfusion | OK TO TRANSFUSETesting | | [facility] | | | Status | performed at [facility];[address] | | LABORATORY | | | | [address];[place], [place] | | | | | | [address] | | | | + + + + + + + + | Specimen | + + | | + + + + + + + | Performing | Address | City/State/Zipcode | Phone Number | | Organization | | | | + + + + + | [facility] | [address] | [place] [address] | [phone] | + + + + + Culture, Tissue, Smear, with Anaerobes (12/08/2019 7:50 PM PDT)Only the most recent of 2 r esults within the time period is included. + + + + + + | Component | Value | Ref Range | Performed | Pathologist | | | | | At | Signature | + + + + + + | Gram Stain | 2+ | | [facility] | | | Result | WBC'S SEEN | | LABORATORY | | | | | | | | + + + + + + | Gram Stain | 2+ | | [facility] | | | Result | GRAM POSITIVE COCCI | | LABORATORY | | | | | | | | + + + + + + | RESULT | NO GROWTH 4 DAYS | | [facility] | | | | | | LABORATORY | | + + + + + + | RESULT | Testing performed at | | [facility] | | | | [facility], [address] [facility] | | LABORATORY | | | | [place] | | | | | | [id number]: Testing | | | | | | performed at [facility], [address] | | | | | | [address], | | | | | | [place] [address] | | | | + + + + + + + + | Specimen | + + | Tissue - Heart valve | | tissue (specimen) | + + + + + + + | Performing | Address | City/State/Zipcode | Phone Number | | Organization | | | | + + + + + | [facility] | [address] | [place] [address] | [phone] | + + + + + POC ISTAT, CG8, Venous (12/08/2019 6:43 PM PDT) + + + + + + | Component | Value | Ref Range | Performed | Pathologist | | | | | At | Signature | + + + + + + | pH, Venous, | 7.235 (L) | 7.310 - 7.410 | [facility] | | | POC | | | LABORATORY | | + + + + + + | PCO2, | 57 (H) | 41 - 51 mmHG | [facility] | | | Venous, POC | | | LABORATORY | | + + + + + + | pO2, Venous | 47 (H) | 30 - 40 mmHG | [facility] | | | | | | LABORATORY | | + + + + + + | HCO3, | 24 | 23 - 28 mmol/L | [facility] | | | Venous | | | LABORATORY | | + + + + + + | TCO2, POC | 26 | 24 - 29 mEq/L | [facility] | | | | | | LABORATORY | | + + + + + + | POC Base | 3 (H) | 0.0 - 2.0 | [facility] | | | Deficit | | mmol/L | LABORATORY | | | mmol/L | | | | | + + + + + + | POC | 74.0 | 60 - 85 % | [facility] | | | SO2.BLDV.QN | | | LABORATORY | | | .(%) | | | | | + + + + + + | Sodium, POC | 137 | 135 - 145 mEq/L | [facility] | | | | | | LABORATORY | | + + + + + + | Potassium, | 5.9 (H) | 3.5 - 5.0 mEq/L | [facility] | | | POC | | | LABORATORY | | + + + + + + | Ionized | 1.05 (L) | 1.12 - 1.32 | [facility] | | | Calcium, | | mmol/L | LABORATORY | | | POC | | | | | + + + + + + | Glucose, | 161 (H) | 65 - 99 mg/dL | [facility] | | | POC | | | LABORATORY | | + + + + + + | Hematocrit, | 20 (LL) | 40.0 - 50.0 % | [facility] | | | POC | | | LABORATORY | | + + + + + + | Hemoglobin, | 6.8 (LL)Comment: Testing | 13.7 - 16.7 | [facility] | | | POC | performed at [facility];[address] | g/dL | LABORATORY | | | | [address];[place], [place] | | | | | | [address] | | | | + + + + + + + + | Specimen | + + | | + + + + + + + | Performing | Address | City/State/Zipcode | Phone Number | | Organization | | | | + + + + + | [facility] | [address] | [place] [address] | [phone] | + + + + + Insert Arterial Line (12/08/2019 1:31 PM PDT) + + + | Narrative | Performed At | + + + | Maggi Tolentino DO 12/08/2019 1:33 PM Insert Arterial Line | | | Date/Time: 12/08/2019 1:32 PM Performed by: Maggi Tolentino DO | | | Authorized by: Maggi Tolentino DO Consent: Verbal consent obtained. | | | Written consent obtained. Risks and benefits: risks, benefits and | | | alternatives were discussed Consent given by: mother, Mirta. | | | Required items: required blood products, implants, devices, and | | | special equipment available Patient identity confirmed: arm band | | | Time out: Immediately prior to procedure a "time out" was called to | | | verify the correct patient, procedure, equipment, it support engineer and | | | site/side marked as required. Preparation: Patient was prepped and | | | draped in the usual sterile fashion. Indications: multiple ABGs, | | | respiratory failure and hemodynamic monitoring Location: right radial | | | Anesthesia: local infiltration Anesthesia: Local Anesthetic: | | | lidocaine 1% without epinephrine Anesthetic total: 1 mL Sedation: | | | Patient sedated: yes Sedatives: propofol Analgesia: fentanyl | | | Vitals: Vital signs were monitored during sedation. Nico's test | | | normal: yes Needle gauge: 20 Seldinger technique: Seldinger | | | technique used Number of attempts: 1 Post-procedure: line sutured | | | and dressing applied Post-procedure CMS: unchanged Patient | | | tolerance: Patient tolerated the procedure well with no immediate | | | complications | | + + + XR Chest 1 Vw (12/08/2019 12:30 PM PDT)Only the most recent of 2 results within the time chanell recinos is included. + + | Specimen | + + | | + + + + + | Impressions | Performed At | + + + | See above. Tubes and catheters as described. Retract left IJ | [facility] | | line 2-3 cm. Signed by: Jeuss Mcleod Michael Sign | | | Date/Time: 12/08/2019 12:40 PM | | + + + + + + | Narrative | Performed At | + + + | CHEST ONE VIEW CLINICAL INFORMATION: Line placement. | [facility] | | COMPARISON: CT CHEST WO CONTRAST (12/07/2019); XR CHEST 1 VIEW | | | (12/04/2019); FINDINGS: ET tube 3.3 cm above the edgardo. Left IJ | | | line tip in the right atrium. Retract 2-3 cm. Gastric tube in the | | | stomach off the end of the image. No infiltrate, atelectasis, | | | congestive failure or effusion. | | + + + + + | Procedure Note | + + | Sai, Eldon Results In - 12/08/2019 12:44 PM PDT | | CHEST ONE VIEW | | | | CLINICAL INFORMATION: | | Line placement. | | | | COMPARISON: | | CT CHEST WO CONTRAST (12/07/2019); XR CHEST 1 VIEW (12/04/2019); | | | | FINDINGS: | | ET tube 3.3 cm above the edgardo. Left IJ line tip in the right atrium. | | Retract 2-3 cm. Gastric tube in the stomach off the end of the image. | | No infiltrate, atelectasis, congestive failure or effusion. | | | | IMPRESSION: | | See above. Tubes and catheters as described. Retract left IJ line 2-3 | | cm. | | | | | | | | Signed by: Jesus Mcleod Michael | | Sign Date/Time: 12/08/2019 12:40 PM | + + + +---------+ + + | Performing | Address | City/State/Zipcode | Phone Number | | Organization | | | | + +---------+ + + | [facility] | | | | + +---------+ + + Central Line (12/08/2019 12:04 PM PDT) + + + | Narrative | Performed At | + + + | Maggi Tolentino DO 12/08/2019 12:11 PM Central Line Date/Time: | | | 12/08/2019 11:50 AM Performed by: Maggi Tolentino DO Authorized by: Maggi | | | DO Randa Consent: Verbal consent obtained. Written consent | | | obtained. Risks and benefits: risks, benefits and alternatives were | | | discussed Consent given by: mother Mirta. Required items: | | | required blood products, implants, devices, and special equipment | | | available Time out: Immediately prior to procedure a "time out" was | | | called to verify the correct patient, procedure, equipment, support | | | staff and site/side marked as required. Indications: vascular | | | access Anesthesia: local infiltration Anesthesia: Local | | | Anesthetic: lidocaine 1% without epinephrine Sedation: Patient | | | sedated: yes Sedatives: propofol Analgesia: fentanyl Vitals: Vital | | | signs were monitored during sedation. Preparation: skin prepped | | | with ChloraPrep Skin prep agent dried: skin prep agent completely | | | dried prior to procedure Sterile barriers: all five maximum sterile | | | barriers used - cap, mask, sterile gown, sterile gloves, and large | | | sterile sheet Hand hygiene: hand hygiene performed prior to central | | | venous catheter insertion Location details: left internal jugular | | | Patient position: Trendelenburg Catheter type: triple lumen Catheter | | | size: 7 Fr Ultrasound guidance: yes Sterile ultrasound techniques: | | | sterile gel and sterile probe covers were used Number of attempts: | | | 1 Successful placement: yes Post-procedure: line sutured and | | | dressing applied Assessment: blood return through all ports, free | | | fluid flow, placement verified by x-ray and no pneumothorax on | | | x-ray Patient tolerance: Patient tolerated the procedure well with no | | | immediate complications | | + + + CT Chest wo Contrast (12/07/2019 4:06 PM PDT) + + | Specimen | + + | | + + + + + | Impressions | Performed At | + + + | Ground-glass opacity in both lungs predominantly in the upper lobes | [facility] | | aeration is improved over the prior several exams. ET tube is in | | | appropriate position Signed by: Jesus Molina, Edilberto Hidalgo | | | Date/Time: 12/07/2019 4:16 PM | | + + + + + + | Narrative | Performed At | + + + | CT CHEST WITHOUT CONTRAST CLINICAL INFORMATION: Pneumonia | [facility] | | COMPARISON: XR CHEST 1 VIEW (12/04/2019); XR CHEST AP PORTABLE | | | (12/01/2019); CTCHEST (12/01/2019); XR ABDOMEN 1 VW (12/04/2019); | | | PROCEDURE: Axial images through the chest. Multiplanar | | | reconstructions. At least one of the following CT dose | | | optimization techniques were used: Automated exposure control; | | | Adjustment of mA and/or kV according to patient size; Use of | | | iterative reconstruction technique. FINDINGS: Lungs, Pleura and | | | Airways: Ground-glass opacity is noted in both lungs more pronounced | | | in the right than the left it has cotton upper lobe predominance. | | | There is mild basilar atelectasis. This is improved since the | | | prior CT and appears improved since the most recent prior chest | | | x-ray. There is mild respiratory motion artifact which obscures | | | detail. Mediastinum: Endotracheal tube is in appropriate position. | | | Lymph Nodes: No adenopathy. Upper Abdomen: No significant abnormality | | | in the visualized upper abdomen. BODY WALL Soft Tissues: The | | | soft tissues of the chest wall are unremarkable. Bones: No acute | | | fracture or vertebral end plate destruction. No lytic or blastic | | | lesion. | | + + + + + | Procedure Note | + + | Sai, Rad Results In 12/07/2019 4:19 PM PDT | | CT CHEST WITHOUT CONTRAST | | | | CLINICAL INFORMATION: | | Pneumonia | | | | COMPARISON: | | XR CHEST 1 VIEW (12/04/2019); XR CHEST AP PORTABLE (12/01/2019); CTCHEST | | (12/01/2019); XR ABDOMEN 1 VW (12/04/2019); | | | | PROCEDURE: | | Axial images through the chest. Multiplanar reconstructions. | | | | At least one of the following CT dose optimization techniques were | | used: Automated exposure control; Adjustment of mA and/or kV according | | to patient size; Use of iterative reconstruction technique. | | | | FINDINGS: | | Lungs, Pleura and Airways: Ground-glass opacity is noted in both lungs | | more pronounced in the right than the left it has cotton upper lobe | | predominance. There is mild basilar atelectasis. This is improved | | since the prior CT and appears improved since the most recent prior | | chest x-ray. There is mild respiratory motion artifact which obscures | | detail. | | Mediastinum: Endotracheal tube is in appropriate position. | | Lymph Nodes: No adenopathy. | | Upper Abdomen: No significant abnormality in the visualized upper | | abdomen. | | | | BODY WALL | | Soft Tissues: The soft tissues of the chest wall are unremarkable. | | Bones: No acute fracture or vertebral end plate destruction. No lytic | | or blastic lesion. | | | | IMPRESSION: | | Ground-glass opacity in both lungs predominantly in the upper lobes | | aeration is improved over the prior several exams. | | ET tube is in appropriate position | | | | | | | | Signed by: Jesus Molina Richard | | Sign Date/Time: 12/07/2019 4:16 PM | + + + +---------+ + + | Performing | Address | City/State/Zipcode | Phone Number | | Organization | | | | + +---------+ + + | [facility] | | | | + +---------+ + + Cryptococcal antigen, Serum (12/06/2019 1:39 PM PDT) + + + + + + | Component | Value | Ref Range | Performed | Pathologist | | | | | At | Signature | + + + + + + | CRYPTOCOCCU | NegativeComment: Testing | Negative | [facility] | | | S AG, S | performed at [facility], | | LABORATORY | | | | [address], [address], | | | | | | [place] [address] | | | | + + + + + + + + | Specimen | + + | Blood | + + + + + + + | Performing | Address | City/State/Zipcode | Phone Number | | Organization | | | | + + + + + | [facility] | [address] | [place] [address] | [phone] | + + + + + HIV 1, Genotype (12/06/2019 1:39 PM PDT) + + + + + + | Component | Value | Ref Range | Performed | Pathologist | | | | | At | Signature | + + + + + + | PDF | Not applicableComment: | | [facility] | | | | Testing performed at | | LABORATORY | | | | [employer] | | | | | | [facility], [address] [place] [address] | | | | | | [place] | | | | | | [phone]. | | | | + + + + + + | HIV | LOWVLMComment: We are | | [facility] | | | [employer] | unable to determine the | | LABORATORY | | | | genotype and/or | | | | | | phenotype of thissample | | | | | | due to insufficient HIV | | | | | | viral copy number. | | | | | | Samples withviral | | | | | | loads <500 copies/mL | | | | | | will often fail PCR | | | | | | amplification. | | | | + + + + + + | HIV | (See Below)Comment: | | [facility] | | | [employer] | Sequencing not performed | | LABORATORY | | | | due to low viral | | | | | | loadTesting performed by | | | | | | [facility], [address] [place] [address] | | | | | | [place] | | | | | | [address] | | | | + + + + + + + + | Specimen | + + | Blood | + + + + + + + | Performing | Address | City/State/Zipcode | Phone Number | | Organization | | | | + + + + + | [facility] | [address] | [place] [address] | [phone] | + + + + + HIV 1, RNA, NAAT, Quant (12/06/2019 1:39 PM PDT) + + + + + + | Component | Value | Ref Range | Performed | Pathologist | | | | | At | Signature | + + + + + + | HIV-1 RNA | <20Comment: HIV-1 RNA | copies/mL | [facility] | | | by PCR | not detectedThe | | LABORATORY | | | | reportable range for | | | | | | this assay is 20 to | | | | | | 10,000,000copies HIV-1 | | | | | | RNA/mL. | | | | + + + + + + | log10 HIV-1 | UPTCALComment: Unable to | [id number]/mL | [facility] | | | RNA | calculate result since | | LABORATORY | | | | non-numeric result | | | | | | obtained forcomponent | | | | | | test. | | | | + + + + + + | Genotype | RTNIComment: Not | | [facility] | | | Assay | indicatedTesting | | LABORATORY | | | | performed by [facility], | | | | | | [address], | | | | | | [facility] [address] | | | | + + + + + + + + | Specimen | + + | Blood | + + + + + + + | Performing | Address | City/State/Zipcode | Phone Number | | Organization | | | | + + + + + | [facility] | [address] | [place] [address] | [phone] | + + + + + CBC Immature Cells (12/06/2019 10:55 AM PDT) + + + + + + | Component | Value | Ref Range | Performed | Pathologist | | | | | At | Signature | + + + + + + | % Bands | 4 | Not Estab. % | [facility] | | | | | | LABORATORY | | + + + + + + | % | 1 (H) | 0 - 0 % | [facility] | | | Metamyelocy | | | LABORATORY | | | ganesh | | | | | + + + + + + | % | 0Comment: Testing | 0 - 0 % | [facility] | | | Myelocytes | performed at [facility], | | LABORATORY | | | | [address], [address], | | | | | | [place] [address] | | | | + + + + + + + + | Specimen | + + | | + + + + + + + | Performing | Address | City/State/Zipcode | Phone Number | | Organization | | | | + + + + + | [facility] | [address] | [place] [address] | [phone] | + + + + + CD4 T Cell Panel (12/06/2019 10:55 AM PDT) + + + + + + | Component | Value | Ref Range | Performed | Pathologist | | | | | At | Signature | + + + + + + | Absolute CD | 284 (L)Comment: Testing | 359 - 1,519 /uL | [facility] | | | [address] [place] | performed at [facility], | | LABORATORY | | | | [address], [address], | | | | | | [facility] [address] | | | | + + + + + + | % CD4 | 35.5Comment: Testing | 30.8 - 58.5 % | [facility] | | | ([place] T) | performed at [facility], | | LABORATORY | | | Cells | [address], [address], | | | | | | [facility] [address] | | | | + + + + + + | WBC | 11.0 (H)Comment: Testing | 3.4 - 10.8 | [facility] | | | | performed at [facility] | x10E3/uL | LABORATORY | | | | [address] | | | | | | [place] [address] | | | | + + + + + + | RBC Count | 2.68 (L)Comment: Testing | 4.14 - 5.80 | [facility] | | | | performed at [facility] | x10E6/uL | LABORATORY | | | | [place], [address] | | | | | | [place], [place] [address] | | | | + + + + + + | Hemoglobin | 7.7 (L)Comment: Testing | 13.0 - 17.7 | [facility] | | | | performed at [facility] | g/dL | LABORATORY | | | | [place], [address] | | | | | | [address], [place] [address] | | | | + + + + + + | Hct | 23.9 (L)Comment: Testing | 37.5 - 51.0 % | [facility] | | | | performed at [facility] | | LABORATORY | | | | [place], [address] | | | | | | [place] | | | | + + + + + + | MCV | 89Comment: Testing | 79 - 97 fL | [facility] | | | | performed at [facility] | | LABORATORY | | | | [place], [address] | | | | | | [address], [place] [address] | | | | + + + + + + | MCH | 28.7Comment: Testing | 26.6 - 33.0 pg | [facility] | | | | performed at [facility] | | LABORATORY | | | | [place], [address] | | | | | | [place] [address] | | | | + + + + + + | MCHC | 32.2Comment: Testing | 31.5 - 35.7 | [facility] | | | | performed at [facility] | g/dL | LABORATORY | | | | [place], [address] | | | | | | [place] [address] | | | | + + + + + + | RDW | 13.9Comment: Testing | 11.6 - 15.4 % | [facility] | | | | performed at [facility] | | LABORATORY | | | | [place], [address] | | | | | | [place] [address] | | | | + + + + + + | Platelet | 61 (L)Comment: Testing | 150 - 450 | [facility] | | | Count | performed at [facility] | x10E3/uL | LABORATORY | | | | [place], [address] | | | | | | [place] [address] | | | | + + + + + + | % | 87Comment: Testing | Not Estab. % | [facility] | | | Neutrophils | performed at [facility], | | LABORATORY | | | | [address], [address], | | | | | | [facility] [address] | | | | + + + + + + | % | 7Comment: Testing | Not Estab. % | [facility] | | | Lymphocytes | performed at [facility], | | LABORATORY | | | | [address], [address], | | | | | | [facility] [address] | | | | + + + + + + | % Monocytes | 1Comment: Testing | Not Estab. % | [facility] | | | | performed at [facility], | | LABORATORY | | | | [address], [address], | | | | | | [facility] [address] | | | | + + + + + + | % | 0Comment: Testing | Not Estab. % | [facility] | | | Eosinophils | performed at [facility], | | LABORATORY | | | | [address], [address], | | | | | | [facility] [address] | | | | + + + + + + | % Basophils | 0Comment: Testing | Not Estab. % | [facility] | | | | performed at [facility], | | LABORATORY | | | | [address], [address], | | | | | | [facility] [address] | | | | + + + + + + | CBC ABS | NoteComment: Testing | | [facility] | | | IMMATURE | performed at [facility] | | LABORATORY | | | CELLS | [place], [address] | | | | | | [place] [address] | | | | + + + + + + | Absolute | 9.6 (H) | 1.4 - 7.0 | [facility] | | | Neutrophils | | x10E3/uL | LABORATORY | | + + + + + + | Absolute | 0.8 | 0.7 - 3.1 | [facility] | | | Lymphocytes | | x10E3/uL | LABORATORY | | + + + + + + | Absolute | 0.1 | 0.1 - 0.9 | [facility] | | | Monocytes | | x10E3/uL | LABORATORY | | + + + + + + | Absolute | 0.0 | 0.0 - 0.4 | [facility] | | | Eosinophils | | x10E3/uL | LABORATORY | | + + + + + + | Absolute | 0.0 | 0.0 - 0.2 | [facility] | | | Basophils | | x10E3/uL | LABORATORY | | + + + + + + | % nRBC | 4 (H) | 0 - 0 % | [facility] | | | | | | LABORATORY | | + + + + + + | Hematology | Note:Comment: Manual | | [facility] | | | Comments: | differential was | | LABORATORY | | | | performed.Polychromasia | | | | | | presentRare nucleated | | | | | | RBC seen.Platelet count | | | | | | verified by examination | | | | | | of peripheral blood | | | | | | smear.Testing performed | | | | | | at [facility], [address] | | | [address], [address], [facility] | | | | | | [address] | | | | + + + + + + + + | Specimen | + + | Blood | + + + + + + + | Performing | Address | City/State/Zipcode | Phone Number | | Organization | | | | + + + + + | [facility] | [address] | [place] [address] | [phone] | + + + + + HIV 1 and 2 Jamison De La Torre (12/06/2019 9:59 AM PDT) + + + + + + | Component | Value | Ref Range | Performed | Pathologist | | | | | At | Signature | + + + + + + | HIV 1 and 2 | REACTIVE (A)Comment: | NR | [facility] | | | Ab | SAMPLE SENT FOR | | LABORATORY | | | | EXAMINATIONTHIS IS A | | | | | | REPORTABLE DISEASE. | | | | | | PLEASE CONTACT YOUR | | | | | | COUNTY/STATE | | | | | | HEALTHDEPARTMENT. | | | | + + + + + + + + | Specimen | + + | Blood | + + + + + + + | Performing | Address | City/State/Zipcode | Phone Number | | Organization | | | | + + + + + | [facility] | [address] | [place] [address] | [phone] | + + + + + ECHO Complete (12/05/2019 2:43 PM PDT) + +--------+ + + + | Component | Value | Ref Range | Performed | Pathologist | | | | | At | Signature | + +--------+ + + + | LVEF-TTE | 70 | % | [facility] | | | TRANSTHORAC | | | | | | IC ECHO | | | | | + +--------+ + + + | RA PRESSURE | 3 | mmHg | [facility] | | + +--------+ + + + | LVIDd | 5.29 | cm | [facility] | | + +--------+ + + + | FS | 47 | % | [facility] | | + +--------+ + + + | LA volume | 112.8 | mL | [facility] | | + +--------+ + + + | AV mean | 28.25 | mmHg | [facility] | | | gradient | | | | | + +--------+ + + + | Aortic | 1.92 | cm2 | [facility] | | | Valve Area | | | | | | by | | | | | | Continuity | | | | | | VTI | | | | | + +--------+ + + + | MV Area by | 3.36 | cm2 | [facility] | | | P 1/2 | | | | | | method | | | | | + +--------+ + + + | PV peak | 4.66 | mmHg | [facility] | | | gradient | | | | | + +--------+ + + + | LVOT | 2.41 | cm | [facility] | | | diameter | | | | | + +--------+ + + + | LVOT peak | 131.66 | cm/s | [facility] | | | peter | | | | | + +--------+ + + + | LVOT peak | 26.17 | cm | [facility] | | | VTI | | | | | + +--------+ + + + | AV peak peter | 347.1 | cm/s | [facility] | | + +--------+ + + + | AV VTI | 62.08 | cm | [facility] | | + +--------+ + + + | AV peak | 48.19 | mmHg | [facility] | | | gradient | | | | | + +--------+ + + + | TV peak | 1.01 | mmHg | [facility] | | | gradient | | | | | + +--------+ + + + | PV mean | 2.19 | mmHg | [facility] | | | gradient | | | | | + +--------+ + + + | MV Pressure | 65.48 | msec | [facility] | | | 1/2 time | | | | | + +--------+ + + + | LA Volume | 53 | mL/m2 | [facility] | | | Index | | | | | + +--------+ + + + | AV LVOT | 6.93 | mmHg | [facility] | | | Peak | | | | | | Gradient | | | | | + +--------+ + + + | AV LVOT | 4.18 | mmHg | [facility] | | | Mean | | | | | | Gradient | | | | | + +--------+ + + + | TR Peak | 45 | mmHg | [facility] | | | Gradient | | | | | + +--------+ + + + | TR Velocity | 334.04 | cm | [facility] | | + +--------+ + + + | PI Peak | 107.94 | cm/s | [facility] | | | Velocity | | | | | + +--------+ + + + | RV | 3.98 | cm | [facility] | | | Diastolic | | | | | | Basal | | | | | | Diameter | | | | | + +--------+ + + + | LVOT Mean | 97.52 | cm/s | [facility] | | | Velocity | | | | | + +--------+ + + + | RVSP | 48 | mmHg | [facility] | | | Estimated | | | | | + +--------+ + + + | MV Peak | 146.38 | cm/s | [facility] | | | E-Wave | | | | | + +--------+ + + + | TV | 122.94 | msec | [facility] | | | Deceleratio | | | | | | n Time | | | | | + +--------+ + + + | TV Peak | 55.91 | cm/s | [facility] | | | A-Wave | | | | | + +--------+ + + + | TV Peak | 50.22 | cm/s | [facility] | | | E-Wave | | | | | + +--------+ + + + | PV Mean | 67.31 | cm/s | [facility] | | | Velocity | | | | | + +--------+ + + + | AV Mean | 252.89 | cm/s | [facility] | | | Velocity | | | | | + +--------+ + + + | RA Area | 22 | cm2 | [facility] | | + +--------+ + + + | LA/Aorta | 1.42 | | [facility] | | | Ratio | | | | | + +--------+ + + + | LA Major | 0.6208 | cm | [facility] | | + +--------+ + + + | Cardiac | 10.74 | l/min | [facility] | | | Output | | | | | + +--------+ + + + | Cardiac | 5.04 | l/min/m2 | [facility] | | | Index | | | | | + +--------+ + + + | Vitals | 90 | | [facility] | | | Heart Rate | | | | | | Rest | | | | | + +--------+ + + + | Vitals BP | 126 | | [facility] | | | Systolic | | | | | + +--------+ + + + | Vitals BP | 61 | | [facility] | | | Diastolic | | | | | + +--------+ + + + | Vitals | 168.0 | | [facility] | | | Height | | | | | + +--------+ + + + | Vitals | 105.20 | | [facility] | | | Weight | | | | | + +--------+ + + + | Aortic Root | 3.46 | cm | [facility] | | | Diameter | | | | | + +--------+ + + + | IVS | 1.3 | cm | [facility] | | | Diastolic | | | | | | Thickness | | | | | | MM | | | | | + +--------+ + + + | LVPW | 1.18 | cm | [facility] | | | Diastolic | | | | | | Thickness | | | | | | MM | | | | | + +--------+ + + + | IVS | 1.8 | cm | [facility] | | | Systolic | | | | | | Thickness | | | | | | MM | | | | | + +--------+ + + + | LV Systolic | 2.78 | cm | [facility] | | | Diameter | | | | | | MM | | | | | + +--------+ + + + | LVPW | 1.67 | cm | [facility] | | | Systolic | | | | | | Thickness | | | | | | MM | | | | | + +--------+ + + + | LA Systolic | 4.9 | cm | [facility] | | | Diameter | | | | | | MM | | | | | + +--------+ + + + + + | Specimen | + + | | + + + + + | Narrative | Performed At | + + + | There are 2 | [facility] | | aortic valvular vegetations. The larger is attached to the | | | ventricular surface of the anterior leaflet, peduncular, measuring 2.3 | | | x 1.0 cm, extending into the left ventricular outflow tract. The | | | other is attached to the aortic surface of the posterior leaflet, and | | | is also peduncular, measuring 1.4 x 0.6 cm, extending into the aortic | | | root. Bicuspid aortic valve with diffuse, severe thickening and | | | moderate aortic regurgitation. There are also 2 mitral vegetations. | | | These are both peduncular, and both attached to the anterior leaflet | | | ventricular surfaces. The larger, more anterior vegetation measures | | | 1.5 x 0.7 cm, and the other measures 1.0 x 0.7 cm. There is mild | | | mitral regurgitation. Normal left ventricular systolic function. The | | | left ventricular ejection fraction is 70%. Moderately dilated right | | | ventricle with normal right ventricular systolic function. Severely | | | dilated left atrium. Mildly dilated right atrium. There is mild | | | pulmonary hypertension. The estimated peak right ventricular systolic | | | pressure (RVSP) is 48 mm Hg. | | | There is mild pulmonary hypertension. The estimated peak right | | |ventricular systolic pressure (RVSP) is 48 mm Hg. | | | | | + + + + +---------+ + + | Performing | Address | City/State/Zipcode | Phone Number | | Organization | | | | + +---------+ + + | [facility] | | | | + +---------+ + + Blood gas, Arterial (12/05/2019 1:33 AM PDT)Only the most recent of 6 results within the t period is included. + + + + + + | Component | Value | Ref Range | Performed | Pathologist | | | | | At | Signature | + + + + + + | FiO2, POC | 35 | % | [facility] | | | | | | LABORATORY | | + + + + + + | pH, | 7.449Comment: This test | 7.350 - 7.450 | [facility] | | | Arterial, | was developed and its | | LABORATORY | | | POC | performance | | | | | | characteristics | | | | | | determined by[facility]bbott, it | | | | | | has not been cleared or | | | | | | approved by the [place] FDA. | | | | | | Clinicians should | | | | | | beadvised to consider a | | | | | | patient's signs, | | | | | | symptoms, history, and | | | | | | results of | | | | | | otherdiagnostic tests | | | | | | when interpreting | | | | | | results from these | | | | | | cartridges. | | | | + + + + + + | pCO2, | 27 (L) | 35 - 45 mmHg | [facility] | | | Arterial | | | LABORATORY | | + + + + + + | pO2, | 155 (H) | 80 - 105 mmHg | [facility] | | | Arterial | | | LABORATORY | | + + + + + + | HCO3, | 19 (L) | 22 - 26 mmol/L | [facility] | | | Arterial | | | LABORATORY | | + + + + + + | TCO2, | 19 (L) | 23 - 27 mEq/L | [facility] | | | Arterial, | | | LABORATORY | | | POC | | | | | + + + + + + | POC Base | 6 (H) | 0.0 - 2.0 | [facility] | | | Deficit | | mmol/L | LABORATORY | | | mmol/L | | | | | + + + + + + | SO2, | 100 (H) | 95 - 98 % | [facility] | | | Arterial, | | | LABORATORY | | | POC | | | | | + + + + + + | Comment, | Site = arterial | | [facility] | | | POC | lineComment: Testing | | LABORATORY | | | | performed at [facility] | | | | | | [address];[place] | | | | | | [address] | | | | + + + + + + + + | Specimen | + + | | + + + + + + + | Performing | Address | City/State/Zipcode | Phone Number | | Organization | | | | + + + + + | [facility] | [address] | [place] [address] | [phone] | + + + + + XR Abdomen AP (12/04/2019 5:09 PM PDT) + + | Specimen | + + | | + + + + + | Impressions | Performed At | + + + | The distal enteric tube is in the stomach. Signed by: | [facility] | | Jesus Hollingsworth Jeffrey Sign Date/Time: 12/04/2019 5:42 PM | | + + + + + + | Narrative | Performed At | + + + | ABDOMEN ONE VIEW (KUB) CLINICAL INFORMATION: Og tube | [facility] | | COMPARISON: CTCHEST (12/01/2019); XR CHEST 1 VIEW (12/04/2019); | | | FINDINGS: The distal enteric tube is in the stomach. | | + + + + + | Procedure Note | + + | Sai, Rad Results In - 12/04/2019 5:46 PM PDT | | ABDOMEN ONE VIEW (KUB) | | | | CLINICAL INFORMATION: | | Og tube | | | | COMPARISON: | | CTCHEST (12/01/2019); XR CHEST 1 VIEW (12/04/2019); | | | | FINDINGS: | | The distal enteric tube is in the stomach. | | | | IMPRESSION: | | The distal enteric tube is in the stomach. | | | | | | | | Signed by: Jesus Hollingsworth Jeffrey | | Sign Date/Time: 12/04/2019 5:42 PM | + + + +---------+ + + | Performing | Address | City/State/Zipcode | Phone Number | | Organization | | | | + +---------+ + + | [facility] | | | | + +---------+ + + Intubation (12/04/2019 4:53 PM PDT) + + + | Narrative | Performed At | + + + | Vickey Cook MD 12/04/2019 4:54 PM Intubation | | | Date/Time: 12/04/2019 4:53 PM Performed by: Vickey Cook MD | | | Authorized by: Vickey Cook MD Consent: The procedure was | | | performed in an emergent situation. Required items: required blood | | | products, implants, devices, and special equipment available | | | Patient identity confirmed: verbally with patient Time out: | | | Immediately prior to procedure a "time out" was called to verify the | | | correct patient, procedure, equipment, it support engineer and site/side | | | marked as required. Indications: respiratory failure and | | | respiratory distress Intubation method: video-assisted (Glidescope) | | | Patient status: paralyzed (RSI) Preoxygenation: nonrebreather mask | | | Pretreatment medications: none Sedatives: etomidate Paralytic: | | | rocuronium Laryngoscope size: [place] Tube size: 8.0 mm Tube type: | | | cuffed Number of attempts: 1 Cricoid pressure: no Cords visualized: | | | yes Post-procedure assessment: chest rise and CO2 detector Breath | | | sounds: equal and absent over the epigastrium Cuff inflated: yes ETT | | | to teeth: 23 cm Tube secured with: ETT cruz and adhesive tape | | | Chest x-ray interpreted by me and radiologist. Chest x-ray findings: | | | endotracheal tube in appropriate position Patient tolerance: Patient | | | tolerated the procedure well with no immediate complications | | + + + Hemoglobin and Hematocrit (12/04/2019 11:30 AM PDT) + + + + + + | Component | Value | Ref Range | Performed | Pathologist | | | | | At | Signature | + + + + + + | Hemoglobin | 8.3 (L) | 13.2 - 17.0 | [facility] | | | | | g/dL | LABORATORY | | + + + + + + | Hematocrit | 24.3 (L)Comment: Testing | 39.0 - 50.0 % | [facility] | | | | performed at [facility] | | LABORATORY | | | | [address];[place] | | | | | | [address] | | | | + + + + + + + + | Specimen | + + | Blood | + + + + + + + | Performing | Address | City/State/Zipcode | Phone Number | | Organization | | | | + + + + + | [facility] | [address] | [place] [address] | [phone] | + + + + + Osmolality, Serum (12/03/2019 10:43 AM PDT) + + + + + + | Component | Value | Ref Range | Performed | Pathologist | | | | | At | Signature | + + + + + + | Osmolality, | 320 (H)Comment: Testing | 275 - 295 | [facility] | | | Serum | performed at [facility], [address] | mOsm/kg | LABORATORY | | | | [address], | | | | | | [place] [address] | | | | + + + + + + + + | Specimen | + + | Blood | + + + + + + + | Performing | Address | City/State/Zipcode | Phone Number | | Organization | | | | + + + + + | [facility] | [address] | [place] [address] | [phone] | + + + + + Lactic Acid (12/02/2019 11:19 AM PDT)Only the most recent of 3 results within the time sloane od is included. + + + + + + | Component | Value | Ref Range | Performed | Pathologist | | | | | At | Signature | + + + + + + | Lactate, | 1.7Comment: Testing | 0.4 - 2.0 | [facility] | | | Serum | performed at [facility];[address] | mmol/L | LABORATORY | | | | [address];[place], [place] | | | | | | [address] | | | | + + + + + + + + | Specimen | + + | Blood | + + + + + + + | Performing | Address | City/State/Zipcode | Phone Number | | Organization | | | | + + + + + | [facility] | [address] | [place] [address] | [phone] | + + + + + Coronavirus (COVID-19) PCR (12/02/2019 10:45 AM PDT) + + + + + + | Component | Value | Ref Range | Performed | Pathologist | | | | | At | Signature | + + + + + + | SARS-CoV-2, | Not DetectedComment: | Not Detected | [facility] | | | [place] | Testing was performed | | LABORATORY | | | (COVID-19) | using the jesse(R) | | | | | | SARS-CoV-2 test.This | | | | | | test was developed and | | | | | | its performance | | | | | | characteristicsdetermine | | | | | | d by [facility] | | | | | | Laboratories. This test | | | | | | has not been FDAcleared | | | | | | or approved. This test | | | | | | has been authorized by | | | | | | FDA under anEmergency | | | | | | Use Authorization (EUA). | | | | | | This test is only | | | | | | authorized forthe | | | | | | duration of time the | | | | | | declaration that | | | | | | circumstances | | | | | | existjustifying the | | | | | | authorization of the | | | | | | emergency use of in | | | | | | vitrodiagnostic tests | | | | | | for detection of | | | | | | SARS-CoV-2 virus and/or | | | | | | diagnosisof COVID-19 | | | | | | infection under section | | | | | | 564(b)(1) of the Act, 21 | | | | | | U.S.C.360bbb-3(b)(1), | | | | | | unless the authorization | | | | | | is terminated or | | | | | | revokedsooner.Testing | | | | | | performed by [facility], | | | | | | [address] [facility] | | | | | | [facility] [address] | | | | + + + + + + + + | Specimen | + + | Tissue - Entire | | nasopharynx (body | | structure) | + + + + + + + | Performing | Address | City/State/Zipcode | Phone Number | | Organization | | | | + + + + + | [facility] | [address] | [place] [address] | [phone] | + + + + + Urinalysis, Reflex Microscopic and/or Culture (12/01/2019 6:44 PM PDT) + + + + + + | Component | Value | Ref Range | Performed | Pathologist | | | | | At | Signature | + + + + + + | Color, UA | LAYA | | [facility] | | | | | | LABORATORY | | + + + + + + | Clarity, UA | CLOUDY | | [facility] | | | | | | LABORATORY | | + + + + + + | Specific | 1.029 | 1.002 - 1.030 | [facility] | | | [place], | | | LABORATORY | | | Urine | | | | | + + + + + + | Leukocyte | TRACE (A) | NEG | [facility] | | | esterase, | | | LABORATORY | | | UA | | | | | + + + + + + | Nitrite, UA | NEGATIVE | NEG | [facility] | | | | | | LABORATORY | | + + + + + + | Urobilinoge | NORMAL | <1.6 mg/dL | [facility] | | | n, Ur | | | LABORATORY | | + + + + + + | Protein, | 30 (A) | NEG mg/dL | [facility] | | | Urine | | | LABORATORY | | | (mg/dL) | | | | | + + + + + + | pH, Urine | 5.0 | 5.0 - 8.0 | [facility] | | | | | | LABORATORY | | + + + + + + | Blood, UA | LARGE (A) | NEG | [facility] | | | | | | LABORATORY | | + + + + + + | Ketones, UA | NEGATIVE | NEG mg/dL | [facility] | | | | | | LABORATORY | | + + + + + + | Bilirubin, | NEGATIVE | NEG | [facility] | | | UA | | | LABORATORY | | + + + + + + | Glucose, Ur | NEGATIVE | NEG mg/dL | [facility] | | | | | | LABORATORY | | + + + + + + | WBC UA | 11-15 | 0 - 5 /hpf | [facility] | | | | | | LABORATORY | | + + + + + + | Red Blood | 50-100 | 0 - 2 /hpf | [facility] | | | Cells, | | | LABORATORY | | | Urine | | | | | + + + + + + | Bacteria, | 2+ (A) | NONE | [facility] | | | Urine | | | LABORATORY | | + + + + + + | Squamous | 16-25 | /lpf | [facility] | | | Epithelial | | | LABORATORY | | | Cells, | | | | | | Urine | | | | | + + + + + + | Mucus, | 1+ | | [facility] | | | Urine | | | LABORATORY | | + + + + + + | HYALINE | 3-5 | | [facility] | | | [facility]STS [facility]A | | | LABORATORY | | + + + + + + | Granular | 6-10 | | [facility] | | | [facility] | | | LABORATORY | | + + + + + + | Amorphous | 1+Comment: Testing | | [facility] | | | Crystals, | [facility] [facility] | | LABORATORY | | | Urine | [address];[place] | | | | | | [address] | | | | + + + + + + + + | Specimen | + + | Urine - Urine | | specimen (specimen) | + + + + + + + | Performing | Address | City/State/Zipcode | Phone Number | | Organization | | | | + + + + + | [facility] | [address] | [place] [address] | [phone] | + + + + + Culture, Urine (12/01/2019 6:44 PM PDT) + + + + + + | Component | Value | Ref Range | Performed | Pathologist | | | | | At | Signature | + + + + + + | RESULT | NO GROWTH | | [facility] | | | | | | LABORATORY | | + + + + + + | RESULT | Testing performed at | | [facility] | | | | [facility], [address] [facility] | | LABORATORY | | | | [place] | | | | | | [id number]: Testing | | | | | | performed at [facility], [address] | | | | | | [address], | | | | | | [place] [address] | | | | + + + + + + + + | Specimen | + + | | + + + + + + + | Performing | Address | City/State/Zipcode | Phone Number | | Organization | | | | + + + + + | [facility] | [address] | [place] [address] | [phone] | + + + + + CK Total (12/01/2019 6:18 PM PDT) + + + + + + | Component | Value | Ref Range | Performed | Pathologist | | | | | At | Signature | + + + + + + | CK TOTAL | 106Comment: Testing | 55 - 400 U/L | [facility] | | | | performed at [facility] | | LABORATORY | | | | [address];[place], [place] | | | | | | [address] | | | | + + + + + + + + | Specimen | + + | Blood | + + + + + + + | Performing | Address | City/State/Zipcode | Phone Number | | Organization | | | | + + + + + | [facility] | [address] | [place] [address] | [phone] | + + + + + Salicylate Level (12/01/2019 6:18 PM PDT) + + + + + + | Component | Value | Ref Range | Performed | Pathologist | | | | | At | Signature | + + + + + + | Salicylate, | <3.0Comment: Testing | 2.8 - 20.0 | [facility] | | | mg/dL | performed at [facility];[address] | mg/dL | LABORATORY | | | | [address];[place], [place] | | | | | | [address] | | | | + + + + + + + + | Specimen | + + | | + + + + + + + | Performing | Address | City/State/Zipcode | Phone Number | | Organization | | | | + + + + + | [facility] | [address] | [place] [address] | [phone] | + + + + + Comprehensive Metabolic Panel (12/01/2019 6:18 PM PDT) + + + + + + | Component | Value | Ref Range | Performed | Pathologist | | | | | At | Signature | + + + + + + | Na | 135 | 135 - 145 | [facility] | | | | | mmol/L | LABORATORY | | + + + + + + | K | 4.0 | 3.5 - 4.9 | [facility] | | | | | mmol/L | LABORATORY | | + + + + + + | Cl | 104 | 99 - 109 mmol/L | [facility] | | | | | | LABORATORY | | + + + + + + | CO2 | 16 (L) | 23 - 32 mmol/L | [facility] | | | | | | LABORATORY | | + + + + + + | Anion Gap | 19 | 5 - 20 mmol/L | [facility] | | | | | | LABORATORY | | + + + + + + | Glucose | 99 | 65 - 99 mg/dL | [facility] | | | | | | LABORATORY | | + + + + + + | BUN | 32 (H) | 8 - 25 mg/dL | [facility] | | | | | | LABORATORY | | + + + + + + | Creatinine | 1.34 (H) | 0.70 - 1.30 | [facility] | | | | | mg/dL | LABORATORY | | + + + + + + | BUN/Creatin | 24 | | [facility] | | | ine Ratio | | | LABORATORY | | + + + + + + | Calcium | 6.9 (L) | 8.5 - 10.5 | [facility] | | | | | mg/dL | LABORATORY | | + + + + + + | Protein, | 4.9 (L) | 6.3 - 8.2 g/dL | [facility] | | | Total | | | LABORATORY | | + + + + + + | Albumin | 2.2 (L) | 3.6 - 5.0 g/dL | [facility] | | | | | | LABORATORY | | + + + + + + | Globulin | 2.7 | 1.3 - 4.9 g/dL | [facility] | | | | | | LABORATORY | | + + + + + + | A/G Ratio | 0.8 (L) | 1.0 - 2.4 | [facility] | | | | | | LABORATORY | | + + + + + + | BILIRUBIN, | 1.7 (H) | 0.1 - 1.5 mg/dL | [facility] | | | TOTAL | | | LABORATORY | | + + + + + + | ALK PHOS | 252 (H) | 35 - 115 U/L | [facility] | | | | | | LABORATORY | | + + + + + + | AST | 242 (H) | 10 - 45 U/L | [facility] | | | | | | LABORATORY | | + + + + + + | ALT | 112 (H) | 10 - 65 U/L | [facility] | | | | | | LABORATORY | | + + + + + + | Estimated | >60Comment: GFR <60: | >60 | [facility] | | | GFR | CHRONIC KIDNEY DISEASE, | mL/min/1.73m2 | LABORATORY | | | | IF FOUND OVER A 3 MONTH | | | | | | PERIOD.GFR <15: KIDNEY | | | | | | FAILURE.FOR | | | | | | AMERICANS, MULTIPLY THE | | | | | | CALCULATED GFR BY | | | | | | 1.210.This eGFR is | | | | | | calculated using the | | | | | | [facility] traceable | | | | | | equation.Testing | | | | | | performed at [facility] | | | | | | [facility];[place], [place] | | | | | | [address] | | | | + + + + + + + + | Specimen | + + | Blood | + + + + + + + | Performing | Address | City/State/Zipcode | Phone Number | | Organization | | | | + + + + + | [facility] | [address] | [place] [address] | [phone] | + + + + + MRSA NAAT (12/01/2019 5:59 PM PDT) + + + + + + | Component | Value | Ref Range | Performed | Pathologist | | | | | At | Signature | + + + + + + | SOURCE: | NARES(NOSE) | | [facility] | | | | | | LABORATORY | | + + + + + + | Result | NEGATIVEComment: Testing | MRSNEG | [facility] | | | | performed at [facility] | | LABORATORY | | | | [address];[place] | | | | | | [address] | | | | + + + + + + + + | Specimen | + + | Tissue - Both | | anterior nares (body | | structure) | + + + + + + + | Performing | Address | City/State/Zipcode | Phone Number | | Organization | | | | + + + + + | [facility] | [address] | [place] [address] | [phone] | + + + + + from Last 3 Months Insurance + +--------+ +--------+ +---------+--------+ | Payer | Benefi | Subscriber | Effect | Phone | Address | Type | | | t Plan | ID | abebe | | | | | | / | | Dates | | | | | | Group | | | | | | + +--------+ +--------+ +---------+--------+ | [employer] | [employer] | [id number] | 12/24/19 | [phone] | | Medica | | MEDICAID HMO | HEALTH | | 20-Pre | 1 | | id | | | MDCD | | [place] | | | | | [place] | | | | | | + +--------+ +--------+ +---------+--------+ + +--------+ +--------+ + + | Guarantor Name | Accoun | Relation to | Date | Phone | Billing Address | | | t Type | Patient | of | | | | | | | | | | + +--------+ +--------+ + + | Rodolfo Chamberlain | Person | Self [birth year] | [address] | | | al/Fam | | 1985 | [phone] | [address], | | | [place] | | | [address] (Home) | [place] [address] | + +--------+ +--------+ + + Advance Directives + + + + + | Type | Date Recorded | Patient | Explanation | | | | Career Coach | | + + + + + | Power of | | | | | Ecological Risk Assessor | | | | + + + + + | Advance | 12/20/2019 3:46 | | | | Directive | PM | | | + + + + + + + + + + | Code Status | Date | Date | Comments | | | Activated | Inactivated | | + + + + + | Full Code | 12/13/2019 | 12/28/2019 | | | | 7:29 AM | 5:47 PM | | + + + + + + +---------+---+ | Orders discussed with: | Patient | | + +---------+---+ + + + +---+ | | | | | + + + +---+ | Full Code | 12/09/2019 | 12/13/2019 | | | | 12:41 AM | 7:29 AM | | + + + +---+ + + + +---+ | | | | | + + + +---+ | Full Code | 12/01/2019 | 12/09/2019 | | | | 5:14 PM | 12:41 AM | | + + + +---+
--- OUTSIDE RECORDS SUMMARY | ~2020-01-31 | XMS | Encounter Summary ---
Demographics + + + | Address | [address] | | | [place] [address] | + + + | Home Phone | | + + + | Preferred Language | Unknown | + + + | Marital Status | Unknown | + + + | Mandaeism Affiliation | Unknown | + + + | Race | Unknown | + + + | Ethnic Group | Unknown | + + + Author + + + | Author | [facility] | | | and [place] | + + + | Organization | [facility] | | | [...] Team Providers + +------+ + | Care Biological Engineer Name | Role | Phone | + +------+ + | Chance Canales | PCP | | + +------+ + Reason for Visit + + + | Reason | Comments | + + + | Hospital Follow-up | Bacterimia | + + + Encounter Details +--------+---------+ + + + | Date | Type | Department | Care Team | Description | +--------+---------+ + + + | 01/14/ | Office | [facility] | Nicole Lamas | Pericardial effusion | | 2020 | Visit | INFECTIOUS DISEASE | Madelyn Valentin MD | (Primary Dx); | | | | [address] | [address] | Bacteremia due to | | | | [place], [place] | [place] [address] | other | | | | [address] | [phone] | bacteria-Aerococcus | | | | [phone] | | urinae; Acute | | | | | | bacterial | | | | | | endocarditis | +--------+---------+ + + + Social History + +-------+ [...] + + documented as of this encounter Last Filed Vital Signs + + + + + | Vital Sign | Reading | Time Taken | Comments | + + + + + | Blood Pressure | 116/63 | 01/15/2020 3:15 PM | | | | | PDT | | + + + + + | Pulse | 115 | 01/15/2020 3:15 PM | | | [...] + + + | Oxygen Saturation | 98% | 01/15/2020 3:15 PM | | | | | PDT | | + + + + + | Inhaled Oxygen | - | - | | | Concentration | | | | + + + + + | Weight | 85.7 kg (189 lb) | 01/15/2020 3:15 PM | | | | | PDT | | + + + + + | Height | - | - | | + + + + + | Body Mass Index | 30.51 | 01/15/2020 11:09 AM | | | | | PDT | | + + + + + documented in this encounter Patient Instructions Patient Instructions Nicole Lamas MD - 01/15/2020 3:20 PM PDTSachin end anti biotics on January 18 Discontinue PICC line after that date Repeat blood cultures 2 weeks after January 18 Follow-up with ID as neededElectronically signed by Nicole Lamas MD at 01/14 3:32 PM PDT documented in this encounter Progress Notes Nicole Lamas MD - 01/15/2020 3:20 PM PDTFormatting of this note might be d ifferent from the original. [facility] Service: Infectious Diseases Outpatient Follow Up Note CHIEF COMPLAINT Follow up on Endocarditis Briefly: Admitted from 11/30-12/27 Patient was seen by Dr. Alejandro. for endocarditis with vegetations on both the aortic and mi tral valves with blood cultures positive for Aerococcus urinae. He was taken urgently to e operating room by Dr. Goodman on December 07 for hemodynamic decompensation due to severe AI and underwent replacement of the aortic and mitral valves and repair of sinus of Valsalva fi stula. The patient tolerated the procedure without any technical complications and was lopes sferred intubated on multiple pressors to the CICU. The patient remained intubated postoper atively. A CT scan was obtained on postoperative day #4 as a result of persistent fevers. This demonstrated a moderate to large pleural effusion along with pericardial effusion. The decision was made to take the patient back to the operating room and perform subxiphoid per icardial window and large bore chest tube placement on December 13. Antibiotics were changed fr om rocephin to vancomycin and fever curve improved. An MRI was done 10/21 encephalopathy showe d possible embolic infarcts. Patient was discharged on 12/27 to complete IV vancomycin throug h 01/18. Of note, HIV screen was positive, but antibodies neg, as well as, neg HIV RNA. HISTORY OF PRESENT ILLNESS The patient is a 34 y.o.-year-old male presenting today for follow up. Patient is doing we ll and tolerating antibiotics. He denies any diarrhea. He will complete antibiotics on January 18 and has no other issues or concerns. PAST MEDICAL HISTORY Patient Active Problem List Diagnosis Acute hypoxemic respiratory failure Metabolic acidosis Meningitis Anemia Thrombocytopenia Bacteremia due to other bacteria-Aerococcus urinae Encounter for observation for suspected exposure to other biological agents ruled out Endocarditis, unspecified chronicity, unspecified endocarditis type Acute bacterial endocarditis Transient complete heart block Pericardial effusion Severe protein-calorie malnutrition Tachycardia Muscular deconditioning Anticoagulated PAST SURGICAL HISTORY Past Surgical History: Procedure Laterality Date AORTIC VALVE AND MITRAL VALVE REPLACEMENT N/A 12/08/2019 Procedure: REPLACEMENT / REPAIR VALVE AORTIC, REPLACEMENT / REPAIR VALVE MITRAL; Surgeon: Harsh Goodman MD; Location: [facility] MAIN OR CARDIAC VALVE SURGERY 12/08/2019 AVR with # 23 St Ean reagent valve, MVR with # 27 Ezequiel valve. 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 Dr Goodman. PERICARDIUM SURGERY N/A 12/14/2019 Procedure: SUB-XYPHOID PERICARDIAL WINDOW, RIGHT TUBE THORACSTOMY; Surgeon: Harsh Goodman MD; Location: [facility] MAIN OR TRANSESOPHAGEAL ECHOCARDIOGRAM 12/08/2019 EF 55%. Lg mobile masses attached to aortic valve leaflets - highly mobile protruding in & out of LVOT. Sev AR. Ulceration on aortic wall between aorta & PA. Bilat sml mitral vegetat ions (anterior & posterior leaflets). Mild MR. TRANSTHORACIC ECHOCARDIOGRAM 12/05/2019 EF 70%. 2 aortic valve veg extending into LVOT. Bicuspid AV w/ diffuse sev thickening & mo d AR. 2 mitral vegetations, mild MR. Mod RV dil. Sev LA dil, mild RA dil. Mild pulm HTN RVSP 48 mmHg, TRANSTHORACIC ECHOCARDIOGRAM 12/13/2019 EF 55%. Mod circumferential pericardial effusion - no suggestion of tamonade - 2.0 cm shor t axis posterior to mid LV, 2.6 cm between RV and diaphragm. Mech MV, AV. SOCIAL HISTORY Social History Socioeconomic History Marital status: Unknown Spouse name: Not on file Number of children: Not on file Years of education: Not on file Highest education level: Not on file Occupational History Not on file Social Needs Financial resource strain: Not on file Food insecurity: Worry: Not on file Inability: Not on file Transportation needs: Medical: Not on file Non-medical: Not on file Tobacco Use Smoking status: Former Smoker Last attempt to quit: 01/15/2012 Years since quittin.0 Smokeless tobacco: Never Used Substance and Sexual Activity Alcohol use: Not Currently Drug use: Yes Sexual activity: Not on file Lifestyle Physical activity: Days per week: Not on file Minutes per session: Not on file Stress: Not on file Relationships Social connections: Talks on phone: Not on file Gets together: Not on file Attends rastafari service: Not on file Active member of club or organization: Not on file Attends meetings of clubs or organizations: Not on file Relationship status: Not on file Intimate partner violence: Fear of current or ex partner: Not on file Emotionally abused: Not on file Physically abused: Not on file Forced sexual activity: Not on file Other Topics Concern Not on file Social History Narrative Not on file FAM. HISTORY No family history on file. MEDICATIONS Current Outpatient Medications: albuterol 2.5 mg/3 mL nebulizer solution, Take 3 mLs by nebulization every hour as nee ded for Wheezing or Shortness of Breath., Disp: 360 vial, Rfl: 1 ascorbic acid (VITAMIN C) 500 mg tablet, Take 1 tablet by mouth Daily., Disp: 30 table t, Rfl: 0 aspirin 81 mg chewable tablet, Chew and swallow 1 tablet Daily., Disp: 30 tablet, Rfl: 1 ferrous sulfate 325 mg tablet, Take 1 tablet by mouth daily (with breakfast)., Disp: 3 0 tablet, Rfl: 0 metoprolol tartrate (LOPRESSOR) 37.5 mg tablet, Take 1 tablet by mouth 3 times daily., Disp: 90 tablet, Rfl: 1 oxyCODONE (ROXICODONE) 5 mg tablet, Take 1 tablet by mouth every 6 hours as needed for Pain., Disp: 30 tablet, Rfl: 0 Vancomycin HCl in NaCl (VANCOMYCIN IN SALINE) 1 g/250 mL IVPB, Inject 1 g into the vei n every 8 hours for 22 days. Indications: Meningitis, Disp: 42246 mL, Rfl: 0 warfarin (COUMADIN) 4 MG tablet, Take 1 tablet by mouth Daily. Take Daily as directed to Keep INR between 2.5-3.5 for MECHANICAL mitral and Mechanical aortic valves., Disp: 30 ta blet, Rfl: 11 Allergies Allergen Reactions Penicillin G Hives REVIEW OF SYSTEMS Negative except for pertinent items noted in HPI. PHYSICAL EXAM Vital Signs: BP 116/63 | Pulse 115 | Temp 36.9 C (98.4 F) (Oral) | Resp 16 | Wt 85.7 kg (189 lb) | SpO2 98% | BMI 30.51 kg/m General Appearance: HEENT: Alert, cooperative, no distress Head normocephalic and atraumatic EEOMI; no scleral icterus Lungs: Clear to auscultation bilaterally, respirations unlabored Heart:: Regular rate and rhythm, S1 and S2 normal, no rub or gallop; ++click Neuro: Attends appropriately; no CN deficits Extremities: Extremities normal, no cyanosis or edema REVIEW OF LABS: All labs were reviewed. ASSESSMENT AND RECOMMENDATIONS The patient is a 34 y.o.-year-old male with the following problems: Rodolfo was seen today for hospital follow-up. Diagnoses and all orders for this visit: Pericardial effusion Bacteremia due to other bacteria-Aerococcus urinae - Culture, Blood; Future - Culture, Blood; Future Acute bacterial endocarditis Status post mitral and aortic valve replacements Will complete 6 weeks of IV antibiotics and Okay to discharge Surveillance blood cultures 2 weeks after and with ID as needed Thank you for allowing us to participate in this patient's care. A return visit has been re quested/scheduled in PRN for routine clinical follow up. The patient was instructed to call our clinic for any questions, and for any concerns regarding worsening symptoms, including f kylie/chills/side effects from medication, especially diarrhea. We will see the patient soon er than the recommended follow up date, if with any worsening of symptoms. Dictation software, ElementsLocal, used which may contain error for similar sounding words even af ter review. Personal communication requested for any clarification. Portions of this chart may have been copied from previous notes for continuity of care purp natalio Lamas MD Infectious Diseases [facility] [address] [place] [address] O: F: 01/15/2020 documente d in this encounter Plan of Treatment +--------+---------+ + + + | Date | Type | Specialty | Care Team | Description | +--------+---------+ + + + | 02/19/ | Office | Cardiology | AnshulCatieCarol | | | 2019 | Visit | | [address] | | | | | | [address] | | | | | | [address] [place], [place] | | | | | | [address] | | | | | | | | +--------+---------+ + + + + + +--------+ + + | Name | Type | Priori | Associated Diagnoses | Order Schedule | | | | ty | | | + + +--------+ + + | Culture, Blood | Microbiolog | Routin | Bacteremia due to | Expected: | | | y | e | other | 01/15/2020, Expires: | | | | | bacteria-Aerococcus | 01/14/2021 | | | | | urinae | | + + +--------+ + + | Culture, Blood | Microbiolog | Routin | Bacteremia due to | 1 Occurrences | | | y | e | other | starting 01/15/2020 | | | | | bacteria-Aerococcus | until 01/14/2021 | | | | | urinae | | + + +--------+ + + documented as of this encounter Visit Diagnoses + + | Diagnosis | + + | Pericardial effusion - Primary Unspecified disease of pericardium | + + | Bacteremia due to other bacteria-Aerococcus urinae Bacteremia | + + | Acute bacterial endocarditis Acute and subacute bacterial endocarditis | + + documented in this encounter"
--- OUTSIDE RECORDS SUMMARY | ~2020-01-31 | XMS | Encounter Summary ---
Demographics + + + | Address | [address] | | | [place] [address] | + + + | Home Phone [...] + + + | Author | [facility] | | | and [place] | + + + | Organization | [facility] | | | [...] Team Providers + +------+ + | Care Booking Clerk Name | Role | Phone | + +------+ + | Chance Canales | PCP | | + +------+ + Reason for Visit + + + | Reason | Comments | + + + | Follow-up | AVR/MVR | + + + Encounter Details +--------+---------+ + + + | Date | Type | Department | Care Team | Description | +--------+---------+ + + + | 01/14/ | Office | [facility] | Hari Gonzalez, | S/P AVR (Primary | | 2020 | Visit | CARDIOTHORACIC | [place] [address] | Dx); S/P MVR (mitral | | | | SURGERY [address] | [address] | valve replacement); | | | | [address] | [place] [id number] | H/O heart valve | | | | [place] | [phone] | replacement with | | | | [id number] | | mechanical valve | | | | [phone] | | | +--------+---------+ + + + Social History [...] + + + | Blood Pressure | 120/50 | 01/15/2020 11:09 AM | | | | | PDT | | + + + + + | Pulse | 119 | 01/15/2020 11:09 AM | | | | | PDT | | + + + + + | Temperature | 35.8 C (96.5 F) | 01/15/2020 11:09 AM | | | | | PDT | | + + + + + | Respiratory Rate | - | - | | + + + + + | Oxygen Saturation | 99% | 01/15/2020 11:09 AM | | | | | PDT | | + + + + + | Inhaled Oxygen | - | - | | | Concentration | | | | + + + + + | Weight | 85.5 kg (188 lb 8 | 01/15/2020 11:09 AM | | | | oz) | PDT | | + + + + + | Height | 167.6 cm (5' 6") | 01/15/2020 11:09 AM | | | | | PDT | | + + + + + | Body Mass Index | 30.42 | 01/15/2020 11:09 AM | | | | | PDT | | + + + + + documented in this encounter Progress Hari Abrams PA - 01/15/2020 11:00 AM PDTFormatting of this note might be different fr om the original. Cardiothoracic Surgery Outpatient Progress Note Pt: Rodolfo Chamberlain AGE/SEX: 34 y.o. male : 1985 Surgery/Procedure: 1. Aortic valve replacement with a #23 St. Ean reagentvalve. 2. Mitral valve replacement with a #27 Ezequiel valve. 3.Repair of sinus of valsalva fistula withpericardial patch. Dr. Goodman Discharge Date: 12/28/2019 SUBJECTIVE: Mr. Rodolfo Chamberlain presents for a 2 week post-discharge follow up exam after the above procedure(s). He says that He feels well overall, and that pain and energy levels have been improving since discharge. Patient reports that Mid-sternal incisions appear to be healing w ell, and sternum is stable. Pt reports ambulating well w/o complications. Pt reports contin uously following sternal precautions as recommended. His most recent INR was 2.2 He reports no chest pain, sob, nausea, vomiting, fevers, chills, or leg edema and has good post-operative pain control. He has an appointment with Gas Meter Mechanic. He has an appointment with Primary Care Physician, Chance Canales DATA: Scheduled Medications Current Outpatient Medications on File Prior to Visit Medication Sig Dispense Refill albuterol 2.5 mg/3 mL nebulizer solution Take 3 mLs by nebulization every hour as neede d for Wheezing or Shortness of Breath. (Patient not taking: Reported on 01/15/2020) 360 vial 1 ascorbic acid (VITAMIN C) 500 mg tablet Take 1 tablet by mouth Daily. 30 tablet 0 aspirin 81 mg chewable tablet Chew and swallow 1 tablet Daily. 30 tablet 1 ferrous sulfate 325 mg tablet Take 1 tablet by mouth daily (with breakfast). 30 tablet 0 metoprolol tartrate (LOPRESSOR) 37.5 mg tablet Take 1 tablet by mouth 3 times daily. 90 tablet 1 oxyCODONE (ROXICODONE) 5 mg tablet Take 1 tablet by mouth every 6 hours as needed for P ain. 30 tablet 0 Vancomycin HCl in NaCl (VANCOMYCIN IN SALINE) 1 g/250 mL IVPB Inject 1 g into the vein every 8 hours for 22 days. Indications: Meningitis (Patient not taking: Reported on 0) 09476 mL 0 warfarin (COUMADIN) 4 MG tablet Take 1 tablet by mouth Daily. Take Daily as directed to Keep INR between 2.5-3.5 for MECHANICAL mitral and Mechanical aortic valves. 30 tablet 11 No current facility-administered medications on file prior to visit. Review of Systems: General ROS: Negative: fever, chill, malaise. Cardiovascular ROS: Negative: chest pain, dyspnea on exertion, edema, irregular heartbeat, Respiratory ROS: Negative: cough, shortness of breath Gastrointestinal ROS: Negative: abdominal pain, constipation, gas/bloating, melena, nausea/ vomiting or swallowing difficulty/pain Musculoskeletal ROS: Negative: gait disturbance Neurological ROS: Negative: behavioral changes, confusion, dizziness, headaches, memory lo ss, numbness/tingling or speech problems Dermatological ROS: Negative: discharge, erythema, warmth or inflammation on or around the incision sites. OBJECTIVE: Vital Signs: BP 120/50 | Pulse 119 | Temp 35.8 C (96.5 F) (Temporal) | Ht 1.676 m (5' 6") | Wt 8 5.5 kg (188 lb 8 oz) | SpO2 99% | BMI 30.42 kg/m Physical Exam: GENERAL: The patient is A&O x3, NAD. NEURO: PERRLA, EOMI; no facial asymmetry, speech normal, moves all extremities well. HEENT: Sclerae clear, nonicteric; oral mucosa moist and pink w/o ulcerations/lesions. NECK: Supple, no JVD noted, trachea midline, no thyromegaly. HEART: RRR, no murmur, rub, or gallop noted. LUNGS: Lungs CTA b/l w/o wheezing, crackles, or rhonchi. ABDOMEN: Soft, nondistended, nontender, no notable masses. BS are active. EXTREMITIES: Warm and well-perfused, no edema, no clubbing or cyanosis noted. SKIN: Clean, dry, intact. No evidence of erythema, discharge, or dehiscence. ASSESSMENT & PLAN: s/p valveAVR/MVR with mechanical valves: Patient doing well overall Patient instructed to follow up in clinic with their log haul operator for heart medication m anagement and coordination of cardiac rehab. Patient to follow up as planned with Primary Care Physician Patient was instructed to call our office for any new pain, redness, swelling, discharge from incisions, or fever. 1 sutures were removed during this office visit without complication. Medications were discussed: pt taking all medications as prescribed. Continue strict sternal precautions for 6 weeks post-op. Visit Diagnoses and Associated Orders: Rodolfo was seen today for follow-up. Diagnoses and all orders for this visit: S/P AVR S/P MVR (mitral valve replacement) H/O heart valve replacement with mechanical valve All medications were reviewed during this examination. Specific follow-up and emergency instructions have been provided and the patient has verbal ized understanding to all instructions. The patient has been seen and the plan discussed with the attending provider, Dr. Goodman. JENNIFER Ryan 01/15/2020 documented in this e ncounter Plan of Treatment +--------+---------+ + + + | Date | Type | Specialty | Care Team | Description | +--------+---------+ + + + | 02/19/ | Office | Cardiology | Carol Landers | | | 2019 | Visit | | [address] | | | | | | [address] | | | | | | [address] [place], [place] | | | | | | [id number] | | | | | | | | +--------+---------+ + + + documented as of this encounter Visit Diagnoses + + | Diagnosis | + + | S/P AVR - Primary Heart valve replaced by other means | + + | S/P MVR (mitral valve replacement) Heart valve replaced by other means | + + | H/O heart valve replacement with mechanical valve Heart valve replaced by other means | + + documented in this encounter
--- OUTSIDE RECORDS SUMMARY | ~2020-01-31 | XMS | Encounter Summary ---
Demographics + + + | Address | [address] | | | [place] [address] | + + + | Home Phone | | + + + | Preferred Language | Unknown | + + + | Marital Status | Unknown | + + + | Baptist Affiliation | Unknown | + + + | Race | Unknown | + + + | Ethnic Group | Unknown | + + + Author + + + | Author | [facility] | | | and [place] | + + + | Organization | [facility] | | | [...] Team Providers + +------+ + | Care Case Operator Name | Role | Phone | + +------+ + PCP | Unavailable | + +------+ + Reason for Visit Auth/Cert +--------+--------+ + + + + | Status | Reason | Specialty | Diagnoses / | Referred By | Referred To | | | | | Procedures | Contact | Contact | +--------+--------+ + + + + | | | | Diagnoses | | | | | | | Sepsis | | | | | | | w/acute resp | | | | | | | failure | | | +--------+--------+ + + + + Encounter Details +--------+ + + + + | Date | Type | Department | Care Team | Description | +--------+ + + + + | 12/07/ | Anesthesia | [facility] | Zach Moody MD | | | 2020 | [facility] | [address] | | | | | [address]PER[address] | [place] [address] | | | | | [address] | | | | | | [place], [place] | | | | | | [address] | | | | | | [phone] | | | +--------+ + + + + Anesthesia Record + + + + + | Procedure Name | Responsible | Anesthesia Start | Anesthesia Stop Time | | | Anesthesiologist | Time | | + + + + + | REPLACEMENT / REPAIR | Zach Moody MD | 12/08/19 1638 | 12/09/19 0024 | | VALVE AORTIC, | | | | | REPLACEMENT / REPAIR | | | | | VALVE MITRAL (N/A | | | | | Chest) | | | | + + + + + +----+---+ + + | Da | T | Event | Comment | | te | i | | | | | m | | | | | e | | | +----+---+ + + | 03 | 1 | | | | /2 | 5 | | | | 1/ | 5 | | | | 20 | 5 | | | | 20 | | | | +----+---+ + + | | 1 | An Start | Reassessment prior to anesthesia induction/procedure. | | | 6 | | | | | 3 | | | | | 8 | | | +----+---+ + + | | 1 | GURDEEP Probe | | | | 7 | Placement | | | | 0 | | | | | 5 | | | +----+---+ + + | | 1 | Anesthesia | | | | 7 | Ready | | | | 0 | | | | | 7 | | | +----+---+ + + | | 1 | First | | | | 7 | Inc/Proc St | | | | 4 | | | | | 4 | | | +----+---+ + + | | 1 | Quick Note | incision | | | 7 | | | | | 4 | | | | | 5 | | | +----+---+ + + | | 1 | Insert | | | | 8 | Aortic | | | | 0 | Cannula | | | | 3 | | | +----+---+ + + | | 1 | Insert | | | | 8 | Venous | | | | 1 | Cannula | | | | 0 | | | +----+---+ + + | | 1 | Quick Note | ACT 560s | | | 8 | | | | | 2 | | | | | 1 | | | +----+---+ + + | | 1 | An CV | | | | 8 | Bypass init | | | | 2 | | | | | 5 | | | +----+---+ + + | | 2 | An CV | | | | 2 | Bypass | | | | 4 | cease | | | | 5 | | | +----+---+ + + | | 2 | Quick Note | Transfusion platelet X 1 bag ( [id number]) | | | 3 | | | | | 1 | | | | | 6 | | | +----+---+ + + | | 2 | Quick Note | Plt x 2nd bag ([id number]) | | | 3 | | | | | 2 | | | | | 5 | | | +----+---+ + + | | 2 | Quick Note | FFP x 2 units | | | 3 | | | | | 4 | | | | | 5 | | | +----+---+ + + | 03 | 0 | GURDEEP Probe | | | /2 | 0 | Removed | | | 2/ | 0 | | | | 20 | 2 | | | | 20 | | | | +----+---+ + + | | 0 | NG/OG | | | | 0 | Placement | | | | 2 | | | | | 3 | | | +----+---+ + + | | 0 | An Stop | Patient handed off to recovery nurse. | | | 2 | | | | | 4 | | | +----+---+ + + | | 0 | An Start | | | | 0 | Data | | | | 2 | | | | | 4 | | | +----+---+ + + +------+ | Meds | +------+ + + + | Name | Total | + + + | ceFAZolin in dextrose IVPB 2 | 4 g | | g/100 mL | | + + + | midazolam 2 mg/mL | 2 mg | + + + | rocuronium | 200 mg | + + + | phenylephrine (infusion) | 3,200 mcg | + + + | norepinephrine (infusion) | 2,178 mcg | + + + | aminocaproic acid | 20 g | + + + | heparin | 35,000 Units | + + + | protamine | 350 mg | + + + | insulin regular (humuLIN R, | 12.6 Units | | novoLIN R) 1 Units/mL in sodium | | | chloride 0.9% 100 mL infusion | | + + + | fentaNYL (PF) injection 25-100 | 500 mcg | | mcg | | + + + | vecuronium | 10 mg | + + + | Plasmalyte (infusion) | 1,000 mL | + + + | sodium chloride 0.9% (NS) | 500 mL | | infusion | | + + + | NS (Infusion) | 0 mL | + + + + + | Name | + + | N2O Flow Rate (L/Min) | + + | O2 Flow Rate (L/Min) | + + | Insp O2 | + + | Exp N2O | + + | Exp ISO | + + | Air Flow Rate (L/Min) | + + + + | No blood administrations on file. | + + +--------+ + + + | Type | Details | Placement | Removal | +--------+ + + + | Rectal | 12/04/19; 1200; rectal tube with | 12/04/19 1200 by | 12/10/19 0445 by | | Tube | balloon (specify ml); balloon | Justin Aceves RN | Vito Abernathy RN | | | deflated, rectal tube removed, | | | | | tubing intact (in almost 1 week. | | | | | minimal drainage.); 12/10/19; | | | | | 0445 | | | +--------+ + + + | Airway | Placement Date: 12/04/19; | 12/04/191540 by | 12/15/19 06 by | | | Placement Time: 1540; Attempts: | Paxton Ballard, | John Negrete, | | | 1; Airway Type: oral, | SUSTAINABLE SYSTEMS ANALYST | Human Resources Operations Coordinator | | | endotracheal; Size: 8; Removal: | | | | | per order; Removal Date: | | | | | 12/15/19; Removal Time: 619 | | | +--------+ + + + | CVC | 12/08/19; 1130; 1; White Hub; | 12/08/19 113 by | 12/13/191944 by | | Triple | Blue Hub; Brown Hub; Yes; | Darvin Park, | Laura Rucker RN | | Lumen | Chlorhexidine/Isopropyl Alcohol; | RN | | | | Yes; Yes; All; Patient room; | | | | | Observer; Dr. Tolentino; Attending | | | | | physician; internal jugular vein, | | | | | left; no longer indicated; | | | | | 12/13/19; 1944 | | | +--------+ + + + | NG/OG | 12/08/19; 1200; orogastric; 16; | 12/08/19 1200 by | 12/15/19 0620 by | | | center mouth; with difficulty; | Laura Rucker RN | John Negrete, | | | 12/15/19; 0620 | | Human Resources Operations Coordinator | +--------+ + + + | Arteri | 12/08/19; 1215; | 12/08/19 1215 by | 12/12/19 1835 by | | al | Chlorhexidine/Isopropyl Alcohol; | Darvin Park, | Pilar Cardenas RN | | Line | Yes; Right; radial artery; | RN | | | | 12/12/19; 1835 | | | +--------+ + + + | Urethr | 12/08/19; 1500; indicated for | 12/08/19 1500 by | 12/16/19 1104 by | | al | critically ill with need for | Darvin Park, | Justin Aceves RN | | Annet | accurate I/O; All elements; All | RN | | | er | elements; All elements; urethral | | | | | catheter removed, tubing intact; | | | | | 12/16/19; 1104 | | | +--------+ + + + | PAC | 12/08/19; 1647; Yes; | 12/08/19 1647 by Zach | 12/10/19 0000 by | | Double | Chlorhexidine/Isopropyl Alcohol; | Mervat Moody MD | Vito Abernathy RN | | Lumen | Yes; Yes; All; OR; Stores Clerk; | | | | | [place]; Attending physician; No; New | | | | | indication for central line | | | | | (e.g., hemodynamic monitoring, | | | | | fluid/medication administration, | | | | | etc.); Right; internal jugular | | | | | vein; standard thermodilution | | | | | catheter; 9 Fr; no longer | | | | | indicated, removed per policy; | | | | | removed by prior shift.; 12/10/19 | | | +--------+ + + + | Pacema | 12/08/19; 1999; epicardial; VVI; | 12/08/191999 by | 12/16/19 1000 by | | ker | capturing, sensing; 12/16/19 (by | Laura Rucker RN | Justin Aceves RN | | | kinsey PAC); 1000 | | | +--------+ + + + | Chest | 12/08/19; 2330; 1; midline; | 12/08/19 2330 by | 12/09/19 1330 by | | Tube | anterior; mediastinum; (28 | Elida Pearson, | Maryanne Santos | | | daphnie rogers); 12/09/19; 1330 | BRIDGET | BRIDGET Garcia | +--------+ + + + documented in this encounter Social History + +-------+ +--------+------+ | Tobacco [...] Cardiology | Carol Landers | | | 2020 | Visit | | [address] | | | | | | [address] | | | | | | [address] [place], [place] | | | | | | [address] | | | | | | | | +--------+---------+ + + + documented as of this encounter Visit Diagnoses Not on filedocumented in this encounter Administered Medications + +--------+ +------+------+------+ | Medication Order | MAR | Action | Dose | Rate | Site | | | Action | Date | | | | + +--------+ +------+------+------+ | aminocaproic acid (AMICAR) | Given | 12/08/19 | 10 g | | | | injection Intravenous, PRN, | | 20 11:18 | | | | | Starting 12/08/19 at 1724, | | PM PDT | | | | | Anesthesia Intra-op | | | | | | + +--------+ +------+------+------+ +-------+ +------+---+---+ | Given | 12/08/19 | 10 g | | | | | 20 5:24 | | | | | | PM PDT | | | | +-------+ +------+---+---+ +---+---+ | | | +---+---+ + + + +---+---+---+ | balanced electrolytes in water | Restarte | 12/08/19 | | | | | (PLASMALYTE-148/NORMOSOL-R) | d | 20 10:44 | | | | | infusion Intravenous, CONTINUOUS | | PM PDT | | | | | PRN, Starting 12/08/19 at | | | | | | | 1703, Anesthesia Intra-op | | | | | | + + + +---+---+---+ +---------+ +---+---+---+ | New Bag | 12/08/19 | | | | | | 20 5:03 | | | | | | PM PDT | | | | +---------+ +---+---+---+ +---+---+ | | | +---+---+ + +-------+ +-----+---+---+ | ceFAZolin in dextrose (ANCEF) | Given | 12/08/19 | 2 g | | | | IVPB Intravenous, Administer | | 20 11:18 | | | | | over 30 Minutes, PRN, Starting | | PM PDT | | | | | 12/08/19 at 1714, Anesthesia | | | | | | | Intra-op | | | | | | + +-------+ +-----+---+---+ +-------+ +-----+---+---+ | Given | 12/08/19 | 2 g | | | | | 20 5:14 | | | | | | PM PDT | | | | +-------+ +-----+---+---+ +---+---+ | | | +---+---+ + +-------+ +---------+---+---+ | fentaNYL (PF) injection 25-100 | Given | 12/08/19 | 450 mcg | | | | mcg 25-100 mcg, Intravenous, | | 20 5:43 | | | | | EVERY 15 MIN PRN, Pain, Starting | | PM PDT | | | | | 12/01/19 at 1714, To maximum | | | | | | | of 400 mcg in 4 hours, | | | | | | + +-------+ +---------+---+---+ +-------+ +--------+---+---+ | Given | 12/08/19 | 50 mcg | | | | | 20 5:10 | | | | | | PM PDT | | | | +-------+ +--------+---+---+ +---+---+ | | | +---+---+ + +-------+ +---------+---+---+ | heparin 1,000 units/mL | Given | 12/08/19 | 35,000 | | | | injection Intravenous, PRN, | | 20 5:52 | Units | | | | Starting 12/08/19 at 1752, | | PM PDT | | | | | Anesthesia Intra-op | | | | | | + +-------+ +---------+---+---+ +---+---+ | | | +---+---+ + +---------+ + +---------+---+ | insulin regular (humuLIN R, | New Bag | 12/08/19 | 2 | 2 mL/hr | | | novoLIN R) 1 Units/mL in sodium | | 20 6:06 | Units/hr | | | | chloride 0.9% 100 mL infusion | | PM PDT | | | | | Intravenous, CONTINUOUS PRN, | | | | | | | Starting 12/08/19 at 1806, | | | | | | | Anesthesia Intra-op | | | | | | + +---------+ + +---------+---+ +---+---+ | | | +---+---+ + +-------+ +------+---+---+ | midazolam (VERSED) 1 mg/mL | Given | 12/08/19 | 2 mg | | | | injection Intravenous, PRN, | | 20 4:31 | | | | | Starting 12/08/19 at 1631, | | PM PDT | | | | | Anesthesia Intra-op | | | | | | + +-------+ +------+---+---+ +---+---+ | | | +---+---+ + + + +---------+-------+---+ | norepinephrine (LEVOPHED) | Restarte | 12/09/19 | 8 | 0.5 | | | injection Intravenous, | d | 20 12:14 | mcg/min | mL/hr | | | CONTINUOUS PRN, Starting Sat | | AM PDT | | | | | 12/08/19 at 1622, Anesthesia | | | | | | | Intra-op | | | | | | + + + +---------+-------+---+ + + +---------+-------+---+ | Rate/Dose Change | 12/08/19 | 8 | 0.5 | | | | 20 11:22 | mcg/min | mL/hr | | | | PM PDT | | | | + + +---------+-------+---+ | Rate/Dose Change | 12/08/19 | 6 | 0.4 | | | | 20 11:02 | mcg/min | mL/hr | | | | PM PDT | | | | + + +---------+-------+---+ +---+---+ | | | +---+---+ + + + +---------+-------+---+ | phenylephrine (AVIVA-SYNEPHRINE, | Rate/Dos | 12/09/19 | 30 | 0.2 | | | VAZCULEP) 10 mg per mL injection | e Change | 20 12:14 | mcg/min | mL/hr | | | Intravenous, CONTINUOUS PRN, | | AM PDT | | | | | Starting 12/08/19 at 2249, | | | | | | | Anesthesia Intra-op | | | | | | + + + +---------+-------+---+ + + +---------+-------+---+ | Rate/Dose Change | 12/09/19 | 100 | 0.6 | | | | 20 12:09 | mcg/min | mL/hr | | | | AM PDT | | | | + + +---------+-------+---+ | New Bag | 12/08/19 | 30 | 0.2 | | | | 20 10:49 | mcg/min | mL/hr | | | | PM PDT | | | | + + +---------+-------+---+ +---+---+ | | | +---+---+ + +-------+ +-------+---+---+ | protamine injection | Given | 12/08/19 | 50 mg | | | | Intravenous, PRN, Starting Sat | | 20 11:12 | | | | | 12/08/19 at 2305, Anesthesia | | PM PDT | | | | | Intra-op | | | | | | + +-------+ +-------+---+---+ +-------+ +--------+---+---+ | Given | 12/08/19 | 300 mg | | | | | 20 11:05 | | | | | | PM PDT | | | | +-------+ +--------+---+---+ +---+---+ | | | +---+---+ + +-------+ +-------+---+---+ | rocuronium (ZEMURON) injection | Given | 12/08/19 | 50 mg | | | | Intravenous, PRN, Starting Sat | | 20 6:34 | | | | | 12/08/19 at 1743, Anesthesia | | PM PDT | | | | | Intra-op | | | | | | + +-------+ +-------+---+---+ +-------+ +-------+---+---+ | Given | 12/08/19 | 50 mg | | | | | 20 5:43 | | | | | | PM PDT | | | | +-------+ +-------+---+---+ | Given | 12/08/19 | 50 mg | | | | | 20 5:02 | | | | | | PM PDT | | | | +-------+ +-------+---+---+ +---+---+ | | | +---+---+ + + + +---+---+---+ | sodium chloride 0.9% (NS) | Restarte | 12/08/19 | | | | | infusion at 30 mL/hr, | d | 20 10:45 | | | | | Intravenous, CONTINUOUS, Starting | | PM PDT | | | | | [place] 12/02/19 at 0415, With | | | | | | | vasopressors, | | | | | | + + + +---+---+---+ +---------+ +---+ +---+ | New Bag | 12/08/19 | | | | | | 20 4:31 | | | | | | PM PDT | | | | +---------+ +---+ +---+ | New Bag | 12/02/19 | | 30 mL/hr | | | | 20 4:20 | | | | | | AM PDT | | | | +---------+ +---+ +---+ +---+---+ | | | +---+---+ + + + +---+-------+---+ | sodium chloride 0.9% (NS) | Restarte | 12/08/19 | | 125 | | | infusion Intravenous, CONTINUOUS | d | 20 10:36 | | mL/hr | | | PRN, Starting 12/08/19 at | | PM PDT | | | | | 1635, Anesthesia Intra-op | | | | | | + + + +---+-------+---+ + + +---+ +---+ | Rate/Dose Change | 12/08/19 | | 30 mL/hr | | | | 20 6:25 | | | | | | PM PDT | | | | + + +---+ +---+ | New Bag | 12/08/19 | | 125 | | | | 20 4:35 | | mL/hr | | | | PM PDT | | | | + + +---+ +---+ +---+---+ | | | +---+---+ + +-------+ +-------+---+---+ | vecuronium (NORCURON) injection | Given | 12/08/19 | 10 mg | | | | Intravenous, PRN, Starting Sat | | 20 7:58 | | | | | 12/08/19 at 8, Anesthesia | | PM PDT | | | | | Intra-op | | | | | | + +-------+ +-------+---+---+ +---+---+ | | | +---+---+ documented in this encounter"
--- OUTSIDE RECORDS SUMMARY | ~2020-01-31 | XMS | Encounter Summary ---
Demographics + + + | Address | [address] | | | [place] [address] | + + + | Home Phone | | + + + | Preferred Language | Unknown | + + + | Marital Status | Unknown | + + + | Zoroastrianism Affiliation | Unknown | + + + | Race | Unknown | + + + | Ethnic Group | Unknown | + + + Author + + + | Author | [facility] | | | and [place] | + + + | Organization | [facility] | | | and [...] Team Providers + +------+ + | Care Artificial Fly Tier Name | Role | Phone | + +------+ + | Chance Canales | PCP | | + +------+ + Reason for Visit + + + | Reason | Comments | + + + | Follow-up(Procedure) | appointment confirmation | + + + Encounter Details +--------+ + + + + | Date | Type | Department | Care Team | Description | +--------+ + + + + | 01/13/ | Telephone | [facility] | Harsh Goodman MD | Follow-up(Procedure) | | 2020 | | CARDIOTHORACIC | [address] | (appointment | | | | SURGERY [address] | [address] | confirmation ) | | | | [address] | [address] | | | | | [place], [place] | | | | | | [address] | | | | | | [phone] | | | +--------+ + + + + Social History + +-------+ +--------+------+ | Tobacco Use | Types | Packs/Day | Years | Date | | | | | Used | | + +-------+ +--------+------+ | Never Smoker | | | | | + +-------+ +--------+------+ + +---+---+---+ | Smokeless Tobacco: | | | | | Never Used | | | | + +---+---+---+ + + + | Sex Assigned at [...] | | 2019 | Visit | | [address] | | | | | [address] | | | | | | [address] [place], [place] | | | | | | [address] | | | | | | | | +--------+---------+ + + + documented as of this encounter Visit Diagnoses Not on filedocumented in this encounter"
--- OUTSIDE RECORDS SUMMARY | ~2020-01-31 | XMS | Encounter Summary ---
Demographics + + + | Address | [address] | | | [place] [address] | + + + | Home Phone | | + + + | Preferred Language | Unknown | + + + | Marital Status | Unknown | + + + | Orthodoxy Affiliation | Unknown | + + + | Race | Unknown | + + + | Ethnic Group | Unknown | + + + Author + + + | Author | [facility] | | | and [place] | + + + | Organization | [facility] | | | and [place] | + + + | Address | Unknown | + + + | Phone | Unavailable | + + + Support + + +---------+ + | Name | Relationship | Address | Phone | + + +---------+ + | Mirta Chamberlain | ECON | Unknown | | + + +---------+ + | Rachel Vanesas | ECON | Unknown | | + + +---------+ + Care Team Providers + +------+ + | Care Hearing Care Practitioner Name | Role | Phone | + [...] + + | 12/13/ | Anesthesia | [facility] | Sergio Gan MD | | | 2020 | Event | [facility] | [address] | | | | | OPERATING RO[address] | [place] [address] | | | | | [address] | [phone] | | | | | [place], [place] | | | | | | [address] | | | | | | [phone] | | | +--------+ + + + + Anesthesia Record + + + + + | Procedure Name | Responsible | Anesthesia Start | Anesthesia Stop Time | | | Anesthesiologist | Time | | + + + + + | SUB-XYPHOID | Sergio Gan MD | 12/14/19 1212 | 12/14/19 1353 | | PERICARDIAL WINDOW, | | | | | RIGHT TUBE | | | | | THORACSTOMY (N/A | | | | | Chest) | | | | + + + + + +----+---+ + + | Da | T | Event | Comment | | te | i | | | | | m | | | | | e | | | +----+---+ + + | 03 | 1 | An Start | Reassessment prior to anesthesia induction/procedure. | | /2 | 2 | | | | 7/ | 1 | | | | 20 | 2 | | | | 20 | | | | +----+---+ + + | | 1 | Quick Note | Transport from ICU intubated, with full monitoring, oxygen via | | | 2 | | bag-mask ventilator. | | | 1 | | | | | 2 | | | +----+---+ + + | | 1 | An | | | | 2 | Induction | | | | 1 | | | | | 3 | | | +----+---+ + + | | 1 | Quick Note | Fentanyl and propofol infusions continued from floor. | | | 2 | | | | | 3 | | | | | 7 | | | +----+---+ + + | | 1 | Anesthesia | | | | 2 | Ready | | | | 4 | | | | | 8 | | | +----+---+ + + | | 1 | | | | | 2 | | | | | 5 | | | | | 0 | | | +----+---+ + + | | 1 | First | | | | 3 | Inc/Proc St | | | | 0 | | | | | 1 | | | +----+---+ + + | | 1 | Quick Note | Transport to ICU | | | 3 | | | | | 4 | | | | | 6 | | | +----+---+ + + | | 1 | an stop | | | | 3 | data | | | | 4 | | | | | 6 | | | +----+---+ + + | | 1 | An Stop | Patient handed off to recovery nurse. | | | 5 | | | | | 3 | | | +----+---+ + + +------+ | Meds | +------+ + + + | Name | Total | + + + | rocuronium | 30 mg | + + + | phenylephrine | 100 mcg | + + + | sodium chloride 0.9% (NS) 100 mL | 47.5 mcg | | with fentaNYL (PF) 50 mcg/mL | | | 1,000 mcg infusion | | + + + | propofol infusion | 315.5 mg | + + + | ceFAZolin in dextrose (ANCEF) | 2 g | | IVPB 2 g | | + + + | Plasmalyte | 200 mL | + + + + + | Name | + + | N2O Flow Rate (L/Min) | + + | O2 Flow Rate (L/Min) | + + | Insp O2 | + + | Exp N2O | + + | Exp SEV | + + | Air Flow Rate (L/Min) | + + + + | No blood administrations on file. | + + +--------+ + + + | Type | Details | Placement | Removal | +--------+ + + + | Wound | 12/14/19; 1350; Incision; chest | 12/14/19 1350 by | | | | | Leigh Forte RN | | +--------+ + + + | Wound | 12/14/19; 1350; Incision; Right; | 12/14/19 1350 by | | | | chest | Leigh Forte RN | | +--------+ + + + | Airway | Placement Date: 12/04/19; | 12/04/19 154 by | 12/15/19 06 by | | | Placement Time: 154; Attempts: | Paxton Ballard, | John Negrete, | | | 1; Airway Type: oral, | CHARGE ENTRY | [employer] | | | endotracheal; Size: 8; Removal: | | | | | per order; Removal Date: | | | | | 12/15/19; Removal Time: 0620 | | | +--------+ + + + | NG/OG | 12/08/19; 1200; orogastric; 16; | 12/08/19 1200 by | 12/15/19 0620 by | | | center mouth; with difficulty; | Laura Rucker RN | John Negrete, | | | 12/15/19; 0620 | | [employer] | +--------+ + + + | Urethr | 12/08/19; 1500; indicated for | 12/08/19 1500 by | 12/16/19 1104 by | | al | critically ill with need for | Darvin Park, | Justin Aceves RN | | Cathet | accurate I/O; All elements; All | RN | | | er | elements; All elements; urethral | | | | | catheter removed, tubing intact; | | | | | 12/16/19; 1104 | | | +--------+ + + + | Pacema | 12/08/19; 1999; epicardial; VVI; | 12/08/19 2000 by | 12/16/19 1000 by | | ker | capturing, sensing; 12/16/19 (by | Laura Rucker RN | Justin Aceves RN | | | kinsey SOMMERS); 1000 | | | +--------+ + + + | Periph | 12/13/19; 0126; Right; | 12/13/19 0126 by | 12/16/19 1024 by | | eral | Antecubital; [id number] | Laura Rucker RN | Carol Handley RN | | IV | catheter system; 20 gauge; | | | | | removed per patient, | | | | | catheter/device intact; 12/16/19; | | | | | 1024 | | | +--------+ + + + | Periph | 12/13/19; 0126; Left; Anterior | 12/13/19 0126 by | 12/14/19 1600 by | | eral | (palmar), Distal; Forearm; | Laura Rucker RN | Justin Aceves RN | | IV | yehw-xhz-ospmmj catheter system; | | | | | 20 gauge; site symptomatic; | | | | | 12/14/19; 1600 | | | +--------+ + + + | Periph | 12/13/19; 0127; Left; Anterior | 12/13/19 0127 by | 12/15/19 2030 by | | emelyn | (palmar); Upper Arm; | Laura Rucker RN | Aria Valverde, | | IV | gesj-rbz-xhzkwg catheter system; | | RN | | | 20 gauge; 12/15/19 (removed by | | | | | pt); 2029 | | | +--------+ + + + | Chest | 12/14/19; 2; right; lateral; | 12/14/19 0000 by | 12/24/19 1000 by | | Tube | pleural; 28 SETSWANA ANGLED; | Leigh Forte RN | Arnulfo Guadalupe | | | 12/24/19; 1000 | | Collins Lopez RN | +--------+ + + + | Arteri | 12/14/19; 1231 (created via | 12/14/19 1231 by | 12/15/19 1515 by | | al | procedure documentation); | Sergio Gan MD | John Negrete, | | Line | Chlorhexidine/Isopropyl Alcohol; | | [employer] | | | under GA; Right; radial artery; | | | | | 20 gauge; continuous blood | | | | | pressure monitoring, frequent | | | | | blood gas measurement; ultrasound | | | | | guided; arm board, other (see | | | | | comments); catheter not patent; | | | | | Total two attempts required at | | | | | right radial insertion; secondary | | | | | attempt: easy, direct insertion; | | | | | 12/15/19; 1515 | | | +--------+ + + + | Chest | 12/14/19; 1306; 1; midline; | 12/14/19 1306 by | 12/16/19 1000 by | | Tube | mediastinum; 24 urdu Luke | Leigh Forte RN | Justin Aceves RN | | | drain; removed by LIP/PA; tip | | | | | intact, per protocol/policy; | | | | | 12/16/19; 1000 | | | +--------+ + + + documented in [...] | | | | | | [address] [place], [place] | | | | | | [address] | | | | | | | | +--------+---------+ + + + documented as of this encounter Procedures + +--------+ + + + | [...] section. | + +--------+ + + + documented in this encounter Results Phu (12/14/2019 12:31 PM PDT) + + [...] medication documentation. | | + + + documented in this encounter Visit Diagnoses Not on filedocumented in this encounter Administered Medications + +---------+ +------+------+------+ | Medication Order | MAR | Action | Dose | Rate | Site | | | Action | Date | | | | + +---------+ +------+------+------+ | balanced electrolytes in water | New Bag | 12/14/19 | | | | | (PLASMALYTE-148/NORMOSOL-R) | | 20 12:12 | | | | | infusion Intravenous, CONTINUOUS | | PM PDT | | | | | PRN, Starting 12/14/19 at | | | | | | | 1212, Anesthesia Intra-op | | | | | | + +---------+ +------+------+------+ +---+---+ | | | +---+---+ + +-------+ +-----+---+---+ | ceFAZolin in dextrose (ANCEF) | Given | 12/14/19 | 2 g | | | | IVPB 2 g 2 g, Intravenous, | | 20 12:45 | | | | | Administer over 30 Minutes, Prior | | PM PDT | | | | | to Incision, Starting Tue | | | | | | | 12/14/19 at 0921, For 1 dose, Keep | | | | | | | in refrigerator., Pre-op, | | | | | | | Indications: Surgical Prophylaxis | | | | | | + +-------+ +-----+---+---+ +---+---+ | | | +---+---+ + +-------+ +---------+---+---+ | phenylephrine (AVIVA-SYNEPHRINE, | Given | 12/14/19 | 100 mcg | | | | VAZCULEP) 10 mg per mL injection | | 20 1:16 | | | | | Intravenous, PRN, Starting Fri | | PM PDT | | | | | 12/14/19 at 1316, Anesthesia | | | | | | | Intra-op | | | | | | + +-------+ +---------+---+---+ +---+---+ | | | +---+---+ + + + + +-------+---+ | propofol infusion (DIPRIVAN) 10 | Restarte | 12/14/19 | 50 | 33.2 | | | mg/mL infusion Intravenous, | d | 20 1:21 | mcg/kg/m | mL/hr | | | CONTINUOUS PRN, Starting Fri | | PM PDT | in | | | | 12/14/19 at 1212, Anesthesia | | | | | | | Intra-op | | | | | | + + + + +-------+---+ +---------+ + +-------+---+ | New Bag | 12/14/19 | 50 | 33.2 | | | | 20 12:12 | mcg/kg/m | mL/hr | | | | PM PDT | in | | | +---------+ + +-------+---+ +---+---+ | | | +---+---+ + +-------+ +-------+---+---+ | rocuronium (ZEMURON) injection | Given | 12/14/19 | 10 mg | | | | Intravenous, PRN, Starting Fri | | 20 1:29 | | | | | 12/14/19 at 1243, Anesthesia | | PM PDT | | | | | Intra-op | | | | | | + +-------+ +-------+---+---+ +-------+ +-------+---+---+ | Given | 12/14/19 | 20 mg | | | | | 20 12:43 | | | | | | PM PDT | | | | +-------+ +-------+---+---+ +---+---+ | | | +---+---+ + + + +--------+---------+---+ | sodium chloride 0.9% (NS) 100 | Restarte | 12/14/19 | 50 | 5 mL/hr | | | mL with fentaNYL (PF) 50 mcg/mL | d | 20 1:21 | mcg/hr | | | | 1,000 mcg infusion CONTINUOUS | | PM PDT | | | | | PRN, Starting 12/14/19 at | | | | | | | 1212, Anesthesia Intra-op | | | | | | + + + +--------+---------+---+ +---------+ +--------+---------+---+ | New Bag | 12/14/19 | 50 | 5 mL/hr | | | | 20 12:12 | mcg/hr | | | | | PM PDT | | | | +---------+ +--------+---------+---+ +---+---+ | | | +---+---+ documented in this encounter"
--- OUTSIDE RECORDS SUMMARY | ~2020-01-31 | XMS | Encounter Summary ---
Demographics + + + | Address | [address] | | | [place] [address] | + + + | Home Phone | | + + + | Preferred Language | Unknown | + + + | Marital Status | Unknown | + + + | Scientology Affiliation | Unknown | + + + | Race | Unknown | + + + | Ethnic Group | Unknown | + + + Author + + + | Author | [facility] | | | and [place] | + + + | Organization | [facility] | | [...] Team Providers + +------+ + | Care Sole Conditioner Name | Role | Phone | + [...] + + | 01/14/ | Office | [facility] | Nicole Lamas | Pericardial effusion | | 2020 | Visit | INFECTIOUS DISEASE | Madelyn Valentin MD | (Primary Dx); | | | | [address] | [address] | Bacteremia due to | | | | [place], [place] | [place] [address] | other | | | | [address] | [phone] | bacteria-Aerococcus | | | | [phone] | | urinae; Acute | | | [...] might be d ifferent from the original. [facility]: Infectious Diseases Outpatient Follow Up Note [...] VALVE MITRAL; Surgeon: Harsh Goodman MD; Location: [facility] MAIN OR CARDIAC VALVE SURGERY 12/08/2019 AVR with # 23 St Ean reagent valve, MVR with # 27 Ezequiel valve. 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 Dr Goodman. PERICARDIUM SURGERY N/A 12/14/2019 Procedure: SUB-XYPHOID PERICARDIAL WINDOW, RIGHT TUBE THORACSTOMY; Surgeon: Harsh Goodman MD; Location: [facility] MAIN OR TRANSESOPHAGEAL ECHOCARDIOGRAM 12/08/2019 EF 55%. [...] file Gets together: Not on file Attends jainism service: Not on file Active member of [...] hours for 22 days. Indications: Meningitis, Disp: 43497 mL, Rfl: 0 warfarin (COUMADIN) 4 MG [...] with any worsening of symptoms. Dictation software, [employer], used which may contain error for similar sounding words even af ter review. Personal communication requested for any clarification. Portions of this chart may have been copied from previous notes for continuity of care purp natalio Lamas MD Infectious Diseases [facility] [address] [place] [address] O: F: 01/15/2020 documente d in this [...] | | | | | | [address] [place], [place] | | | | | | [address] | | | | | | | [...]
--- OUTSIDE RECORDS SUMMARY | ~2020-01-31 | XMS | Encounter Summary ---
Demographics + + + | Address | [address] | | | [place] [address] | + + + | Home Phone | | + + + | Preferred Language | Unknown | + + + | Marital Status | Unknown | + + + | Mosque Affiliation | Unknown | + + + [...] Team Providers + +------+ + | Care Double End Production Grinder Name | Role | Phone | + +------+ + | Chance Canales | PCP | | + +------+ + Reason for Visit +--------+ + | Reason | Comments | +--------+ + | Pre-Op | | +--------+ + Encounter Details +--------+ + + + + | Date | Type | Department | Care Team | Description | +--------+ + + + + | 12/11/ | Telephone | [facility] | Darío Canales | Pre-Op | | 2020 | | CENTER CV INTRA OP | [address] | | | | | [address] | [facility] | | | | | [place], [place] | [place], [place] | | | | | [address] | [id number] | | | | | [phone] | | | +--------+ + + + [...] | | | | | | [address] [facility] [place] | | | | | | [address] | | | | | | | | +--------+---------+ + + + documented as of this encounter Visit Diagnoses Not on filedocumented in this encounter"
--- OUTSIDE RECORDS SUMMARY | ~2020-01-31 | XMS | Encounter Summary ---
Demographics + + + | Address | [address] | | | [place] [address] | + + + | Home Phone | | + + + | Preferred Language | Unknown | + + + | Marital Status | Unknown | + + + | Christianity Affiliation | Unknown | + + + | Race | Unknown | + + + | Ethnic Group | Unknown | + + + Author + + + | Author | [facility] | | | and [place] | + + + | Organization | [facility] | | | [...] Team Providers + +------+ + | Care Gauge Maker Apprentice Name | Role | Phone | + +------+ + | Chance Canales | PCP | | + +------+ + Reason for Visit + + + | Reason | Comments | + + + | Follow-up(Procedure) | AVR/MVR f/u post 2 day discharge | + + + Encounter Details +--------+ + + + + | Date | Type | Department | Care Team | Description | +--------+ + + + + | 12/30/ | Telephone | [facility] | Harsh Goodman MD | Follow-up(Procedure) | | 2020 | | CARDIOTHORACIC | [address] | (AVR/MVR f/u post 2 | | | | SURGERY [address] | [place] | day discharge) | | | | [address] | [address] | | | | | [place], [place] | | | | | | [address] | | | | | | [phone] | | | +--------+ + + + [...] | | | | | | [address] [place], [place] | | | | | | [address] | | | | | | | | +--------+---------+ + + + documented as of this encounter Visit Diagnoses Not on filedocumented in this encounter"
--- OUTSIDE RECORDS SUMMARY | ~2020-01-31 | XMS | Encounter Summary ---
Demographics + + + | Address | [address] | | | [place] [address] | + + + | Home Phone | | + + + | Preferred Language | Unknown | + + + | Marital Status | Unknown | + + + | Worship Affiliation | Unknown | + + + | Race | Unknown | + + + | Ethnic Group | Unknown | + + + Author + + + | Author | [facility] | | | and [place] | + + + | Organization | [facility] | | | and [...] Team Providers + +------+ + | Care Cadence Specialists Name | Role | Phone | + +------+ + | Chance Canales | PCP | | + +------+ + Reason for Visit + + + | Reason | Comments | + + + | Follow-up | | + + + Encounter Details +--------+---------+ + + + | Date | Type | Department | Care Team | Description | +--------+---------+ + + + | 01/22/ | Office | [facility] | Darío Canales | Complete heart block | | 2020 | Visit | [facility] [place] | [address] | ([facility]) (Primary Dx); | | | | [address] | [place], [place] | Sinus tachycardia; | | | | [place] | [place] | Endocarditis, | | | | [address] | [address] | unspecified | | | | [phone] | | chronicity, | | | | | | unspecified | | | | | | endocarditis type | +--------+---------+ + + + Social History [...] + + + + | Temperature | - | - | | + [...] + + documented in this encounter Progress Notes Darío Canales MD - 01/23/2020 3:30 PM PDTFormatting of this note might be dif ferent from the original. Subjective: Referring MD: No ref. provider found Chief Complaint Patient presents with Follow-up HPI: This is a 34 y.o. male who presents today for follow-up after more recent hospitalizat ion. Mr. Chamberlain was hospitalized in November 2019 with aortic and mitral valve endocarditis w ith bacteremia. He ultimately underwent mechanical mitral and mechanical aortic valve repla cements. He had a prolonged hospital stay. He was seen by electrophysiology due to brief c omplete heart block noted following his surgery. Conduction improved and stabilized up unti l discharge. He reports he is been taking Toprol-XL 75 mg daily since discharge. He denies any current chest pain, dizziness, lightheadedness, or recent syncope. He continues on ant icoagulation with warfarin. 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 Dr Goodman. PERICARDIUM SURGERY N/A 12/14/2019 Procedure: SUB-XYPHOID PERICARDIAL WINDOW, RIGHT TUBE THORACSTOMY; Surgeon: Harsh Goodman MD; Location: [facility] MAIN OR TRANSESOPHAGEAL ECHOCARDIOGRAM 12/08/2019 EF 55%. [...] LV, 2.6 cm between RV and diaphragm. [facility] MV, AV. History reviewed. No pertinent family history. Social History Socioeconomic History Marital status: Unknown Spouse name: Not on file Number of children: Not on file Years of education: Not on file Highest education level: Not on file Tobacco Use Smoking status: Former Smoker Last attempt to quit: 01/15/2012 Years since quittin.0 Smokeless tobacco: Never Used Substance and Sexual Activity Alcohol use: Not Currently Drug use: Yes Review of Systems: Ten system review negative unless noted in HPI. Current Outpatient Medications Medication Sig Dispense Refill albuterol 2.5 mg/3 mL nebulizer solution Take 3 mLs by nebulization every hour as neede d for Wheezing or Shortness of Breath. 360 vial 1 ascorbic acid (VITAMIN C) 500 mg tablet Take 1 tablet by mouth Daily. (Patient not taki ng: Reported on 01/23/2020) 30 tablet 0 aspirin 81 mg chewable tablet Chew and swallow 1 tablet Daily. (Patient not taking: Rep orted on 01/23/2020) 30 tablet 1 ferrous sulfate 325 mg tablet Take 1 tablet by mouth daily (with breakfast). 30 tablet 0 metoprolol succinate (TOPROL-XL) 50 mg 24 hr tablet Take 1 tablet by mouth 2 times sharri y. 180 tablet 3 oxyCODONE (ROXICODONE) 5 mg tablet Take 1 tablet by mouth every 6 hours as needed for P ain. (Patient not taking: Reported on 01/23/2020) 30 tablet 0 warfarin (COUMADIN) 4 MG tablet Take 1 tablet by mouth Daily. Take Daily as directed to Keep INR between 2.5-3.5 for MECHANICAL mitral and Mechanical aortic valves. 30 tablet 11 No current facility-administered medications for this visit. Allergies Allergen Reactions Penicillin G Hives Objective: Vitals: 01/23/20 1511 BP: 121/60 Pulse: 134 Weight: 86.8 kg (191 lb 6.4 oz) Height: 1.753 m (5' 9") Body mass index is 28.26 kg/m. Exam: General: Patient is alert, pleasant, cooperative, and in no acute distress. Eyes: Sclerae anicteric. Ears: External ears normal. Nose: External nose normal. Oral exam: No oral lesions noted. Neck: Trachea midline. No thyromegaly. No elevation of jugular venous pressure. No saavedra tid bruits. Lungs: Clear to auscultation bilaterally. No wheezes, rales, or rhonchi. Heart: Regular rate and rhythm. Normal S1/S2. No murmurs, gallops, rubs. Abdomen: Bowel sounds present. Soft, nondistended. No masses or hepatosplenomegaly noted . No significant tenderness noted. Extremities: No clubbing or cyanosis noted. No lower extremity edema noted. Pulses: Intact bilateral radial and pedal pulses. Musculoskeletal: No obvious arthritic change noted of the knees. Skin: Warm and dry. Psychiatric: Patient is alert and oriented to person, place, and day. Mood and affect nor mal. Neurological: Patient is intact to light touch in the upper and lower extremities bilateral ly. Review of studies: ECG: Sinus tachycardia at 135 bpm with first-degree AV block, right bundle branch block, le ft axis deviation, compared to the EKG of November 2019 an increase in resting heart rate is no meño Impression/Plan: Rodolfo was seen today for follow-up. Diagnoses and all orders for this visit: Complete heart block (HCC) - ECG 12 lead Sinus tachycardia - metoprolol succinate (TOPROL-XL) 50 mg 24 hr tablet; Take 1 tablet by mouth 2 times d aily. Endocarditis, unspecified chronicity, unspecified endocarditis type 1) Complete heart block - Mr. Chamberlain was hospitalized in November 2019 for aortic and mitral valve endocarditis. He underwent aortic and mitral valve replacements and had episodes of c omplete heart block following surgery. Conduction ultimately improved and he continued with 1:1 AV conduction despite faster sinus rates. Intact AV conduction is noted on examination today. His echocardiogram in November 2019 demonstrated an ejection fraction of 55%. He cont inues to have a right bundle branch block with first-degree AV block. We will continue to k [place]ee track of his conduction over time. 2) Sinus tachycardia - He was noted to have sinus tachycardia during his more recent admiss ion. Sinus tachycardia is again noted on his EKG in the office today. He will increase Top rol-XL to 50 mg 2 times a day. 3) Endocarditis - He was recently admitted with bacteremia and aortic and mitral valve endo carditis. He is status post mechanical aortic and mechanical mitral valve replacements. He continues on anticoagulation with warfarin. He continues to follow with cardiology.` This encounter was dictated with voice recognition software and may contain inadvertent rec ognition errors. documented in this encounter Plan of Treatment +--------+---------+ + + + | Date | Type | Specialty | Care Team | Description | +--------+---------+ + + + | 02/19/ | Office | Cardiology | Carol Landers | | 2019 | Visit | | [address] | | | | | | [address] | | | | | | [address] [place], [place] | | | | | | [id number] | | | | | | | [...] + + documented in this encounter Results ECG 12 lead (01/23/2020 3:16 PM PDT) + + + + + [...] | | | | | | by DARÍO CANALES MD | | | | | | ([id number]) on 01/23/2020 | | | | | [...] | | | + +---------+ + + documented in this encounter Visit Diagnoses + + | Diagnosis | + + | Complete heart block (HCC) - Primary Atrioventricular block, complete | + + | Sinus tachycardia Other specified cardiac dysrhythmias | + + | Endocarditis, unspecified chronicity, unspecified endocarditis type | + + documented in this encounter
--- OUTSIDE RECORDS SUMMARY | ~2020-01-31 | XMS | Encounter Summary ---
Demographics + + + | Address | [address] | | | [place] [address] | + + + | Home Phone | | + + + | Preferred Language | Unknown | + + + | Marital Status | Unknown | + + + | Mandaen Affiliation | Unknown | + + + | Race | Unknown | + + + | Ethnic Group | Unknown | + + + Author + + + | Author | [facility] | | | and [place] | + + + | Organization | [facility] | | [...] Team Providers + +------+ + | Care Franchise Sales Manager Name | Role | Phone | + [...] + + | 01/14/ | Office | [facility] | Hari Gonzalez, | S/P AVR (Primary | | 2020 | Visit | CARDIOTHORACIC | [place] [address] | Dx); S/P MVR (mitral | | | | SURGERY [address] | [address] | valve replacement); | | | | [address] | [place] [id number] | H/O heart valve | | | | [place] [address] | [phone] | replacement with | | | | [address] | | mechanical valve | | | | [phone] | | | +--------+---------+ + + + [...] pain control. He has an appointment with [facility]. 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
--- OUTSIDE RECORDS SUMMARY | ~2020-01-31 | XMS | Encounter Summary ---
Demographics + + + | Address | [address] | | | [place] [address] | + + + | Home Phone | | + + + | Preferred Language | Unknown | + + + | Marital Status | Unknown | + + + | Mormon Affiliation | Unknown | + + + | Race | Unknown | + + + | Ethnic Group | Unknown | + + + Author + + + | Author | [facility] | | | and [place] | + + + | Organization | [facility] | | | [...] Team Providers + +------+ + | Care Stevedore Hold Name | Role | Phone | + [...] + + | 12/30/ | Telephone | [facility] | Harsh Goodman MD | Follow-up(Procedure) | | 2020 | | CARDIOTHORACIC | [address] | (AVR/MVR f/u post 2 | | | | SURGERY 1100 | [address] [place] | day discharge) | | | | [address] | [id number] | | | | | [place], [place] | | | | | | [address] | | | | | | [phone] | | | +--------+ + + + [...] | | | | | | [address] [place], [place] | | | | | | [address] | | | | | | | | +--------+---------+ + + + documented as of this encounter Visit Diagnoses Not on filedocumented in this encounter"
--- OUTSIDE RECORDS SUMMARY | ~2020-01-31 | XMS | Clinical Summary ---
Demographics + + + | Address | [address] ([place], [place]) [address] | | | [place] [address] | + + + | Home Phone [...] + + + | Author | [facility] | | | and [place] | + + + | Organization | [facility] | | [...] Team Providers + +------+ + | Care Collection Team Lead Name | Role | Phone | + +------+ + | Chance Canlaes | PCP | | + +------+ + [...] | Inject 1 g into the | 91516 | 0 | 04/1 | 05/0 | [...] automatically from request for surgery | | [id number] | + + + + + | [...] automatically from request for surgery | | [id number] | + + + + + | Acute bacterial endocarditis | 12/01/2019 | + + + + + | Overview: Added automatically from request for surgery | | [id number] | + + + + + | Transient complete heart block | 12/01/2019 | + + + + + | Overview: Added automatically from request for surgery | | [id number] | + + Resolved Problems + + [...] | Visit | | MD Bryson | ([facility]) (Primary Dx); | | | | | [...] failure | | | | | | ([facility]); Lactic | | | | | | acidosis; Bilateral | | | | | | pulmonary | | | | | | infiltrates on CXR; | | | | | | ARDS (adult | | | | | | respiratory distress | | | | | | syndrome) ([facility]); | | | | | | Gram positive | | | | | | septicemia ([facility]); | | | | | | Endocarditis, | | | | | | unspecified | | | | | | chronicity, | | | | | | unspecified | | | | | | endocarditis type; | | | | | | 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 RES[employer] infection; | | | | | | [...] block | | | | | | ([facility]); Transient | | | | | | complete heart block | | | | | | ([facility]); Transient | | | | | | complete heart block | | | | | | ([facility]); Pericardial | | | | | | [...] | | | | | | [address] [place], [place] | | | | | | [address] | | | | | | | [...] | | 06/08/ | ONXM-2 | | [id number]: Qty: 1 on | ical | Heart | TECHNOLOGIE | | 2022 | 04/16 | | 12/08/2019 by Harsh Goodman, | Heart | | S INC - | | | /[id number] | | MD at [facility] | Valve | | ONXL | | | 04 /NA | | [facility] | | | | | | | + +--------+-------+ +--------+--------+--------+ | Valve Aort [place] Rot 23mm - | Mechan | N/A: | [facility] | | 06/30/ | [id number] | | [id number]: Qty: 1 on | ical | Heart | MEDICAL - | | 2019 | -756 | | 12/08/2019 by Harsh Goodman, | Heart | | STJU | | | /[id number] | | MD at [facility] | Valve | | | | | 000 | | [facility] | | | | | | /NA | + +--------+-------+ +--------+--------+--------+ | Patch Pericardial 2x5cm - | | | [facility] | | 12/31/ | [id number] | | SnaImplanted: Qty: 1 on | | | MEDICAL - | | 2019 | /NA | | 12/08/2019 by Harsh Goodman, | | | STJU | | | /[id number] | | MD at [facility] | | | | | | 227 | | [facility] | | | | | | [...] | | Results for this | | #[id number] | e | 12:00 PM | | [...] | + +--------+ + + + | VA INSERT | Routin | 12/08/2019 | | [...] | + +--------+ + + + | VA INSERT NON-TUNNEL | Routin | 12/08/2019 | [...] MD | | | | | | (1185) on 01/23/2020 | | | | | [...] | | | | | performed at [facility];[address] | | | | | | [address];[place] | | | | | | [address] | | | | + + + + + + + + | Specimen | + + | Blood | + + + + + + + | Performing | Address | City/State/Zipcode | Phone Number | | Organization | | | | + + + + + | [facility] | [address] | [place] [address] | [phone] | + + + + + CBC [...] | | | Absolute | performed at [facility];[address] | K/uL | LABORATORY | | | | [address];[place] | | | | | | [address] | | | | + + + + + + + + | Specimen | + + | Blood | + + + + + + + | Performing | Address | City/State/Zipcode | Phone Number | | Organization | | | | + + + + + | [facility] | [address] | [place] [address] | [phone] | + + + + + Phosphorus [...] RAMYA | | | | performed at [facility];[address] | | LABORATORY | | | | [address];[place] | | | | | | [address] | | | | + + + + + + + + | Specimen | + + | Blood | + + + + + + + | Performing | Address | City/State/Zipcode | Phone Number | | Organization | | | | + + + + + | [facility] | [address] | [place] [address] | [phone] | + + + + + Magnesium [...] Testing | 1.7 - 2.4 mg/dL | [facility] | | | | performed at [facility];[address] | | LABORATORY | | | | [address];[place], [place] | | | | | | [address] | | | | + + + + + + + + | Specimen | + + | Blood | + + + + + + + | Performing | Address | City/State/Zipcode | Phone Number | | Organization | | | | + + + + + | [facility] | [address] | [place] [address] | [phone] | + + + + + Vancomycin, [...] | | | | | performed at [facility];[address] | | | | | | [address];[place] | | | | | | [address] | | | | + + + + + + + + | Specimen | + + | | + + + + + + + | Performing | Address | City/State/Zipcode | Phone Number | | Organization | | | | + + + + + | [facility] | [address] | [place] [address] | [phone] | + + + + + Basic [...] | | | | | performed at [facility] | | | | | | [facility];[place], [place] | | | | | | [address] | | | | + + + + + + + + | Specimen | + + | Blood | + + + + + + + | Performing | Address | City/State/Zipcode | Phone Number | | Organization | | | | + + + + + | [facility] | [address] | [place] [address] | [phone] | + + + + + Potassium [...] [facility] | | | | performed at [facility];[address] | mmol/L | LABORATORY | | | | [address];[place], [place] | | | | | | [address] | | | | + + + + + + + + | Specimen | + + | Blood | + + + + + + + | Performing | Address | City/State/Zipcode | Phone Number | | Organization | | | | + + + + + | [facility] | [address] | [place] [address] | [phone] | + + + + + PTT [...] Testing | 23 - 32 seconds | [facility] | | | | performed at [facility];[address] | | LABORATORY | | | | [address];[place], [place] | | | | | | [address] | | | | + + + + + + + + | Specimen | + + | Blood | + + + + + + + | Performing | Address | City/State/Zipcode | Phone Number | | Organization | | | | + + + + + | [facility] | [address] | [place] [address] | [phone] | + + + + + Echo [...] | underlying pulmonary edema. Signed by: Jesus Pryro, | | | Edilberto Sign Date/Time: 12/25/2019 [...] | | | Signed by: Jesus Mitchell, Julia | | Sign Date/Time: 12/17/2019 9:27 PM [...] | | | POC | performed at [facility];[address] | | LABORATORY | | | | [address];[place], [place] | | | | | | [address] | | | | + + + + + + + + | Specimen | + + | | + + + + + + + | Performing | Address | City/State/Zipcode | Phone Number | | Organization | | | | + + + + + | [facility] | [address] | [place] [address] | [phone] | + + + + + CBC [...] LABORATORY | | | | performed at [facility];[address] | | | | | [address];[place], [place] | | | | | | [address] | | | | + + + + + + + + | Specimen | + + | Blood | + + + + + + + | Performing | Address | City/State/Zipcode | Phone Number | | Organization | | | | + + + + + | [facility] | [address] | [place] [address] | [phone] | + + + + + Vancomycin [...] Vancomycin | 22.1Comment: Testing | ug/mL | [facility] | | | Random, | performed at [facility];[address] | | LABORATORY | | | Serum | [address];[place], [place] | | | | | | [address] | | | | + + + + + + + + | Specimen | + + | Blood | + + + + + + + | Performing | Address | City/State/Zipcode | Phone Number | | Organization | | | | + + + + + | [facility] | [address] | [place] [address] | [phone] | + + + + + Culture, [...] | [facility] | | | Result | [facility];[address] | | LABORATORY | | | | [address];[place] [address] | | | | + + + + + + | RESULT | NO GROWTH 4 DAYS | | [facility] | | | | | | LABORATORY | | + + + + + + | RESULT | Testing performed at | | [facility] | | | | TCL, [address] | | LABORATORY | | | | [place], [place] | | | | | | [address]Apqrwde: Testing | | | | | | performed at [facility], [address] | | | | | | [address] [facility], [place], [place] | | | | | | [address] | | | | + + + + + + + + | Specimen | + + | Body Fluid - | | Pericardial fluid | | specimen (specimen) | + + + + + + + | Performing | Address | City/State/Zipcode | Phone Number | | Organization | | | | + + + + + | [facility] | [address] | [place] [address] | [phone] | + + + + + Phu [...] BANK | Testing performed at | | [facility] | | | COMMENT | [facility];[address] | | LABORATORY | | | | [address];[place] [address] | | | | + + + + + + + + | Specimen | + + | | + + + + + + + | Performing | Address | City/State/Zipcode | Phone Number | | Organization | | | | + + + + + | [facility] | [address] | [place] [address] | [phone] | + + + + + Type [...] + + + | BB BAND | [id number] | | [facility] | | | | | | LABORATORY | | + + + + + + | UNIT # | [id number] | | [facility] | | | | [...] | | | RESULT | performed at [facility];[address] | | LABORATORY | | | | [address];[place], [place] | | | | | | [address] | | | | + + + + + + | UNIT # | [id number] | | [facility] | | | | [...] | + + + + + | [facility] | [address] | [place] [address] | [phone] | + + + + + VAS [...] | 144Comment: Testing | <150 mg/dL | [facility] | | | es | performed at [facility], [address] | | LABORATORY | | | | [address], | | | | | | [place] [address] | | | | + + + + + + + + | Specimen | + + | Blood | + + + + + + + | Performing | Address | City/State/Zipcode | Phone Number | | Organization | | | | + + + + + | [facility] | [address] | [place] [address] | [phone] | + + + + + TSH (12/13/2019 12:30 AM PDT) + + + + + + | Component | Value | Ref Range | Performed | Pathologist | | | | | At | Signature | + + + + + + | TSH | 3.888Comment: Testing | 0.450 - 5.100 | [facility] | | | | performed at [facility];[address] | uIU/mL | LABORATORY | | | | [address];[place], [place] | | | | | | [address] | | | | + + + + + + + + | Specimen | + + | Blood | + + + + + + + | Performing | Address | City/State/Zipcode | Phone Number | | Organization | | | | + + + + + | [facility] | [address] | [place] [address] | [phone] | + + + + + CT [...] [facility] | | | | performed at [facility];[address] | | LABORATORY | | | | [address];[place], [place] | | | | | | [address] | | | | + + + + + + + + | Specimen | + + | Blood | + + + + + + + | Performing | Address | City/State/Zipcode | Phone Number | | Organization | | | | + + + + + | [facility] | [address] | [place] [address] | [phone] | + + + + + Urinalysis [...] - 1.030 | [facility] | | | [place], | | | LABORATORY | | | [...] | | | Urine | performed at [facility];[address] | | LABORATORY | | | | [address] [facility];[place], [place] | | | | | | [address] | | | | + + + [...] | + + + + + | [facility] | [address] | [place] [address] | [phone] | + + + + + Culture, [...] LABORATORY | | | | [address];[place] [address] | | | | + + + [...] | | | | [facility], [address] | | LABORATORY | | | | [place], [place] | | | | | | [address] | | | | + + + [...] Comment: Testing | | | performed at [facility], | | | [address], | | | [place] [address] | +---+ + + + + + + | Performing | Address | City/State/Zipcode | Phone Number | | Organization | | | | + + + + + | [facility] | [address] | [place] [address] | [phone] | + + + + + Culture, [...] LABORATORY | | | | [place];[place] [address] | | | | + + + [...] [place] | | | | | | [address]Sxlxobb: Testing | | | | | | performed at [facility], [address] | | | | | | [address], [place], [place] | | | | | | [address] | | | | + + + + + + + + | Specimen | + + | Blood - Peripheral | | blood specimen | | (specimen) | + + + + + + + | Performing | Address | City/State/Zipcode | Phone Number | | Organization | | | | + + + + + | [facility] | [address] | [place] [address] | [phone] | + + + + + HIV [...] | | | | | [address], [facility] | | | | | | [address] | | | | + + + + + + + + | Specimen | + + | | + + + + + + + | Performing | Address | City/State/Zipcode | Phone Number | | Organization | | | | + + + + + | [facility] | [address] | [place] [address] | [phone] | + + + + + Product: Platelets (12/09/2019 6:36 AM PDT)Only the most recent of 5 results within the ti oh period is included. + + + + [...] + + + | UNIT # | [id number] | | [facility] | | | | [...] | | | Status | performed at [facility];[address] | | LABORATORY | | | | [address];[place] | | | | | | [address] | | | | + + + + + + + + | Specimen | + + | | + + + + + + + | Performing | Address | City/State/Zipcode | Phone Number | | Organization | | | | + + + + + | [facility] | [address] | [place] [address] | [phone] | + + + + + POC [...] | | | POC | performed at [facility];[address] | g/dL | LABORATORY | | | | [address];[place], [place] | | | | | | [address] | | | | + + + + + + + + | Specimen | + + | | + + + + + + + | Performing | Address | City/State/Zipcode | Phone Number | | Organization | | | | + + + + + | [facility] | [address] | [place] [address] | [phone] | + + + + + Red [...] [facility] | | | | performed at [facility];[address] | | LABORATORY | | | | [address];[place], [place] | | | | | | [address] | | | | + + + + + + + + | Specimen | + + | Blood | + + + + + + + | Performing | Address | City/State/Zipcode | Phone Number | | Organization | | | | + + + + + | [facility] | [address] | [place] [address] | [phone] | + + + + + Fibrinogen [...] [facility] | | | | performed at [facility];[address] | | LABORATORY | | | | [address];[place], [place] | | | | | | [address] | | | | + + + + + + + + | Specimen | + + | Blood | + + + + + + + | Performing | Address | City/State/Zipcode | Phone Number | | Organization | | | | + + + + + | [facility] | [address] | [place] [address] | [phone] | + + + + + Hemoglobin A1C (12/09/2019 12:56 AM PDT) + + + + + + | Component | Value | Ref Range | Performed | Pathologist | | | | | At | Signature | + + + + + + | Hemoglobin | 5.4Comment: HbA1c method | 4.0 - 6.0 % | [facility] | | | A1c | is certified [...] | 108Comment: Estimated | <154 mg/dL | [facility] | | | Average | Average Glucose | | LABORATORY | | | Glucose | calculated from | | | | | | hemoglobin A1c by use of | | | | | | the ADArecommended | | | | | | formula.Testing | | | | | | performed at [facility], [address] | | | | | | [facility], | | | | | | [place] [address] | | | | + + + + + + + + | Specimen | + + | Blood | + + + + + + + | Performing | Address | City/State/Zipcode | Phone Number | | Organization | | | | + + + + + | [facility] | [address] | [place] [address] | [phone] | + + + + + ECHO [...] | | Name CINDY ABERNATHY Room Number 85857 | | | SIMBA Patient Number [id number] Date of Study | | | 12/08/2019 Visit Number [id number] | | | Referring Physician MERRY RINCON Accession | | | [id number] Magistrate Judge Number Date of 1985 | | | Interpreting ZACH HEMPHILL MD | | | Physician Age 34 year(s) | | | Nurse Gender Male Stress | | | Campaign Advisor Procedure Type of Study GURDEEP procedure:ECHO Transesophageal [...] Demographics Patient Name CINDY ABERNATHY Room Number 14183 | | SIMBA Patient Number [id number] Date of Study 12/08/2019 Visit | | Number [id number] Referring Physician MERRY RINCON Accession | | [id number] Magistrate Judge Number Date of 1985 Interpreting | | [...] | | | Arterial, | performed at [facility];[address] | | LABORATORY | | | POC | [facility];[place], [place] | | | | | | [address] | | | | + + + + + + + + | Specimen | + + | | + + + + + + + | Performing | Address | City/State/Zipcode | Phone Number | | Organization | | | | + + + + + | [facility] | [address] | [place] [address] | [phone] | + + + + + Product: Plasma, Frozen <24 (12/08/2019 9:50 PM PDT) + + + + + + | Component | Value | Ref Range | Performed | Pathologist | | | | | At | Signature | + + + + + + | BLOOD BANK | ORDER RECEIVED IN BLOOD | | [facility] | | | COMMENT | BANK. | | LABORATORY | | + + + + + + | UNIT # | [id number] | | [facility] | | | | [...] + + + | UNIT # | [id number] | | [facility] | | | | [...] | | | Status | performed at [facility];[address] | | LABORATORY | | | | [address];[place], [place] | | | | | | [address] | | | | + + + + + + + + | Specimen | + + | | + + + + + + + | Performing | Address | City/State/Zipcode | Phone Number | | Organization | | | | + + + + + | [facility] | [address] | [place] [address] | [phone] | + + + + + Culture, [...] | | | | [facility], [address] [facility] | | LABORATORY | | | | [place] | | | | | | [address]Lzllcjr: Testing | | | | | | performed at [facility], [address] | | | | | | [address], | | | | | | [place] [address] | | | | + + + + + + + + | Specimen | + + | Tissue - Heart valve | | tissue (specimen) | + + + + + + + | Performing | Address | City/State/Zipcode | Phone Number | | Organization | | | | + + + + + | [facility] | [address] | [place] [address] | [phone] | + + + + + POC [...] | | | POC | performed at [facility];888 | g/dL | LABORATORY | | | | [address];[place], [place] | | | | | | [address] | | | | + + + + + + + + | Specimen | + + | | + + + + + + + | Performing | Address | City/State/Zipcode | Phone Number | | Organization | | | | + + + + + | [facility] | [address] | [place] [address] | [phone] | + + + + + Insert [...] | verify the correct patient, procedure, equipment, landing support specialist and | | | site/side marked as [...] | | line 2-3 cm. Signed by: Jesus Mcleod Michael Sign | | | Date/Time: [...] | S AG, S | performed at [facility], | | LABORATORY | | | | [address], [address], | | | | | | [place] [address] | | | | + + + + + + + + | Specimen | + + | Blood | + + + + + + + | Performing | Address | City/State/Zipcode | Phone Number | | Organization | | | | + + + + + | [facility] | [address] | [place] [address] | [phone] | + + + + + HIV 1, Genotype (12/06/2019 1:39 PM PDT) + + + + + + | Component | Value | Ref Range | Performed | Pathologist | | | | | At | Signature | + + + + + + | PDF | Not applicableComment: | | [facility] | | | | Testing performed at | | LABORATORY | | | | [employer] | | | | | | [facility], [address] [place] [address] | | | | | | [place] | | | | | | [address]. | | | | + + + + + + | HIV | LOWVLMComment: We are | | [facility] | | | [employer] | unable to [...] | HIV | (See Below)Comment: | | [facility] | | | [employer] | Sequencing not performed | | LABORATORY | | | | due to low viral | | | | | | loadTesting performed by | | | | | | [facility], [address] [place] [address] | | | | | | [place] | | | | | | [address] | | | | + + + + + + + + | Specimen | + + | Blood | + + + + + + + | Performing | Address | City/State/Zipcode | Phone Number | | Organization | | | | + + + + + | [facility] | [address] | [place] [address] | [phone] | + + + + + HIV [...] log10 HIV-1 | UPTCALComment: Unable to | awh35gxfl/mL | [facility] | | | RNA | [...] LABORATORY | | | | performed by [facility], | | | | | | [address], | | | | | | [facility] [address] | | | | + + + + + + + + | Specimen | + + | Blood | + + + + + + + | Performing | Address | City/State/Zipcode | Phone Number | | Organization | | | | + + + + + | [facility] | [address] | [place] [address] | [phone] | + + + + + CBC [...] | | | Myelocytes | performed at [facility], | | LABORATORY | | | | [address], [address], | | | | | | [place] [address] | | | | + + + + + + + + | Specimen | + + | | + + + + + + + | Performing | Address | City/State/Zipcode | Phone Number | | Organization | | | | + + + + + | [facility] | [address] | [place] [address] | [phone] | + + + + + CD4 [...] /uL | [facility] | | | [address] | performed at [facility], | | LABORATORY | | | | [address], [address], | | | | | | [facility] [address] | | | | + + + + + + | % CD4 | 35.5Comment: Testing | 30.8 - 58.5 % | [facility] | | | (Casper T) | performed at [facility] [facility], | | LABORATORY | | | Cells | [address], [address], | | | | | | [facility] [address] | | | | + + + + + + | WBC | 11.0 (H)Comment: Testing | 3.4 - 10.8 | [facility] | | | | performed at [facility] | x10E3/uL | LABORATORY | | | | [address] | | | | | | [place] [address] | | | | + + + + + + | RBC Count | 2.68 (L)Comment: Testing | 4.14 - 5.80 | [facility] | | | | performed at [facility] | x10E6/uL | LABORATORY | | | | [place], [address] | | | | | | [place], [place] [address] | | | | + + + + + + | Hemoglobin | 7.7 (L)Comment: Testing | 13.0 - 17.7 | [facility] | | | | performed at [facility] | g/dL | LABORATORY | | | | [place], [address] | | | | | [address], [place] [address] | | | | + + + + + + | Hct | 23.9 (L)Comment: Testing | 37.5 - 51.0 % | [facility] | | | | performed at [facility] | | LABORATORY | | | | [place], [address] | | | | | | [place] | | | | + + + + + + | MCV | 89Comment: Testing | 79 - 97 fL | [facility] | | | | performed at [facility] | | LABORATORY | | | | [place], [address] | | | [address] | [address], [place] [address] | | | | + + + + + + | MCH | 28.7Comment: Testing | 26.6 - 33.0 pg | [facility] | | | | performed at [facility] | | LABORATORY | | | | [facility] [place], [address] | | | | | | [place] [address] | | | | + + + + + + | MCHC | 32.2Comment: Testing | 31.5 - 35.7 | [facility] | | | | performed at [facility] | g/dL | LABORATORY | | | | [facility] [place], [address] | | | | | | [place] [address] | | | | + + + + + + | RDW | 13.9Comment: Testing | 11.6 - 15.4 % | [facility] | | | | performed at [facility] | | LABORATORY | | | | [facility] [place], [address] | | | | | | [place] [address] | | | | + + + + + + | Platelet | 61 (L)Comment: Testing | 150 - 450 | [facility] | [facility] | Count | [facility] | [id number] | LABORATORY | | | | [facility] [place], [address] | | | | | | [place] [address] | | | | + + + + + + | % | 87Comment: Testing | Not Estab. % | [facility] | | | Neutrophils | performed at [facility], | | LABORATORY | | | | [address], [address], | | | | | | [facility] [address] | | | | + + + + + + | % | 7Comment: Testing | Not Estab. % | [facility] | | | Lymphocytes | performed at [facility], | | LABORATORY | | | | [address], [address], | | | | | | [facility] [address] | | | | + + + + + + | % Monocytes | 1Comment: Testing | Not Estab. % | [facility] | | | | performed at [facility], | | LABORATORY | | | | [address], [address], | | | | | | [facility] [address] | | | | + + + + + + | % | 0Comment: Testing | Not Estab. % | [facility] | | | Eosinophils | performed at [facility], | | LABORATORY | | | | [address], [address], | | | | | | [facility] [address] | | | | + + + + + + | % Basophils | 0Comment: Testing | Not Estab. % | [facility] | | | | performed at [facility], | | LABORATORY | | | | [address], [address], | | | | | | [facility] [address] | | | | + + + + + + | CBC ABS | NoteComment: Testing | | [facility] | | | IMMATURE | performed at [facility] | | LABORATORY | | | [place] | [place], [address] | | | | | | [place] [address] | | | | + + + [...] | | | | | | at [place] [place], [address] | | | | | | [address], [address], [facility] | | | | | | [address] | | | | + + + + + + + + | Specimen | + + | Blood | + + + + + + + | Performing | Address | City/State/Zipcode | Phone Number | | Organization | | | | + + + + + | [facility] | [address] | [place] [address] | [phone] | + + + + + HIV 1 and 2 Jamison De La Torre (12/06/2019 9:59 AM PDT) + + + + + + | Component | Value | Ref Range | Performed | Pathologist | | | | | At | Signature | + + + + + + | HIV 1 and 2 | REACTIVE (A)Comment: | NR | [facility] | | | Ab | SAMPLE SENT [...] | + + + + + | [facility] | [address] | [place] [address] | [phone] | + + + + + ECHO [...] LABORATORY | | | | performed at [facility] | | | | | | [address];[place] | | | | | | [address] | | | | + + + + + + + + | Specimen | + + | | + + + + + + + | Performing | Address | City/State/Zipcode | Phone Number | | Organization | | | | + + + + + | [facility] | [address] | [place] [address] | [phone] | + + + + + XR [...] | | | correct patient, procedure, equipment, landing support specialist and site/side | | | marked as required. Indications: respiratory failure and | | | respiratory distress Intubation method: video-assisted (Glidescope) | | | Patient status: paralyzed (RSI) Preoxygenation: nonrebreather mask | | | Pretreatment medications: none Sedatives: etomidate Paralytic: | | | rocuronium Laryngoscope size: [place] Tube size: 8.0 mm Tube type: | [...] [facility] | | | | performed at [facility];[address] | | LABORATORY | | | | [address];[place] | | | | | | [address] | | | | + + + + + + + + | Specimen | + + | Blood | + + + + + + + | Performing | Address | City/State/Zipcode | Phone Number | | Organization | | | | + + + + + | [facility] | [address] | [place] [address] | [phone] | + + + + + Osmolality, Serum (12/03/2019 10:43 AM PDT) + + + + + + | Component | Value | Ref Range | Performed | Pathologist | | | | | At | Signature | + + + + + + | Osmolality, | 320 (H)Comment: Testing | 275 - 295 | [facility] | | | Serum | performed at [facility], [address] | mOsm/kg | LABORATORY | | | | [address], | | | | | | [place] [address] | | | | + + + + + + + + | Specimen | + + | Blood | + + + + + + + | Performing | Address | City/State/Zipcode | Phone Number | | Organization | | | | + + + + + | [facility] | [address] | [place] [address] | [phone] | + + + + + Lactic [...] | | | Serum | performed at [facility];[address] | mmol/L | LABORATORY | | | | [address];[place], [place] | | | | | | [address] | | | | + + + + + + + + | Specimen | + + | Blood | + + + + + + + | Performing | Address | City/State/Zipcode | Phone Number | | Organization | | | | + + + + + | [facility] | [address] | [place] [address] | [phone] | + + + + + Coronavirus (COVID-19) PCR (12/02/2019 10:45 AM PDT) + + + + + + | Component | Value | Ref Range | Performed | Pathologist | | | | | At | Signature | + + + + + + | SARS-CoV-2, | Not DetectedComment: | Not Detected | [facility] | | | SAVAGE | Testing was performed | | LABORATORY | | | (COVID-19) | using the jesse(R) | | | | | | SARS-CoV-2 test.This | | | | | | test was developed and | | | | | | its performance | | | | | | characteristicsdetermine | | | | | | d by [facility] | | | | | | [...] | | | | | performed by [facility], | | | | | | [address] [facility] | | | | | | [facility] [address] | | | | + + + + + + + + | Specimen | + + | Tissue - Entire | | nasopharynx (body | | structure) | + + + + + + + | Performing | Address | City/State/Zipcode | Phone Number | | Organization | | | | + + + + + | [facility] | [address] | [place] [address] | [phone] | + + + + + Urinalysis, [...] - 1.030 | [facility] | | | [place], | | | LABORATORY | | | [...] | | | Crystals, | performed at [facility];[address] | | LABORATORY | | | Urine | [address];[place] | | | | | | [address] | | | | + + + + + + + + | Specimen | + + | Urine - Urine | | specimen (specimen) | + + + + + + + | Performing | Address | City/State/Zipcode | Phone Number | | Organization | | | | + + + + + | [facility] | [address] | [place] [address] | [phone] | + + + + + Culture, [...] RESULT | Testing performed at | | [facility] | | | | [facility], [address] [facility] | | LABORATORY | | | | [place] | | | | | | [address]Vbuntcm: Testing | | | | | | performed at [facility], [address] | | | | | | [address], | | | | | | [place] [address] | | | | + + + + + + + + | Specimen | + + | | + + + + + + + | Performing | Address | City/State/Zipcode | Phone Number | | Organization | | | | + + + + + | [facility] | [address] | [place] [address] | [phone] | + + + + + CK Total (12/01/2019 6:18 PM PDT) + + + + + + | Component | Value | Ref Range | Performed | Pathologist | | | | | At | Signature | + + + + + + | CK TOTAL | 106Comment: Testing | 55 - 400 U/L | [facility] | | | | performed at [facility];[address] | | LABORATORY | | | | [address];[place], [place] | | | | | | [address] | | | | + + + + + + + + | Specimen | + + | Blood | + + + + + + + | Performing | Address | City/State/Zipcode | Phone Number | | Organization | | | | + + + + + | [facility] | [address] | [place] [address] | [phone] | + + + + + Salicylate Level (12/01/2019 6:18 PM PDT) + + + + + + | Component | Value | Ref Range | Performed | Pathologist | | | | | At | Signature | + + + + + + | Salicylate, | <3.0Comment: Testing | 2.8 - 20.0 | [facility] | | | mg/dL | performed at [facility];[address] | mg/dL | LABORATORY | | | | [address];[place], [place] | | | | | | [address] | | | | + + + + + + + + | Specimen | + + | | + + + + + + + | Performing | Address | City/State/Zipcode | Phone Number | | Organization | | | | + + + + + | [facility] | [address] | [place] [address] | [phone] | + + + + + Comprehensive [...] | >60Comment: GFR <60: | >60 | [facility] | | | GFR | CHRONIC KIDNEY [...] | | | | | | MDRD [facility] traceable | | | | | | equation.Testing | | | | | | performed at [facility];[address] | | | | | | [facility];[place], [place] | | | | | | [address] | | | | + + + + + + + + | Specimen | + + | Blood | + + + + + + + | Performing | Address | City/State/Zipcode | Phone Number | | Organization | | | | + + + + + | [facility] | [address] | [place] [address] | [phone] | + + + + + MRSA [...] GETACHEW | | | | performed at [facility];[address] | | LABORATORY | | | | [address];[place] | | | | | | [address] | | | | + + + [...] | [address] | [place] [address] | [phone] | + + + + + from [...] | [employer] | [employer] | [id number] | 12/24/19 | [phone] | | [employer] | | MEDICAID HMO [...] | | | 8 (Home) | [place] [address] | + +--------+ +--------+ + + Advance Directives + + + + + | Type | Date Recorded | Patient | Explanation | | | | Direct Marketing Intern | | + + + + + | Power of | | | | | Director Statistical Programming | | | | + + + [...]
--- OUTSIDE RECORDS SUMMARY | ~2020-01-31 | XMS | Encounter Summary ---
Demographics + + + | Address | [address] | | | [place] [address] | + + + | Home Phone | | + + + | Preferred Language | Unknown | + + + | Marital Status | Unknown | + + + | Mormon Affiliation | Unknown | + + + | Race | Unknown | + + + | Ethnic Group | Unknown | + + + Author + + + | Author | [facility] | | | and [place] | + + + | Organization | [facility] | | | [...] Team Providers + +------+ + | Care Hat Renovator Name | Role | Phone | + [...] + + | 12/13/ | Anesthesia | [facility] | Sergio Gan MD | | | 2020 | Event | [facility] | [address] | | | | | OPER[address] | [place] [address] | | | | | [address] | [phone] | | | | | [place], [place] | | | | | | [address] | | | | | | [phone] | | | +--------+ + + + [...] | | 1; Airway Type: oral, | CARBON SEQUESTRATION PLANT MANAGER | Motion Picture Film Examiner | | | endotracheal; Size: 8; Removal: [...] | | | 12/15/19; 0620 | | Motion Picture Film Examiner | +--------+ + + + | Urethr [...] 1024 by | | eral | Antecubital; nvjq-byd-owwbns | Laura Rucker RN | Craol Handley RN | | IV | catheter [...] Distal; Forearm; | Laura Rucker RN | Justni Aceves RN | | IV | rkpi-boy-dgwewf catheter system; | | | | | 20 gauge; site symptomatic; | | | | | 12/14/19; 1600 | | | +--------+ + + + | Periph | 12/13/19; 0127; Left; Anterior | 12/13/19 0127 by | 12/15/19 2030 by | | emelyn | (palmar); Upper Arm; | Laura Rucker RN | Aria Valverde, | | IV | hick-fpj-pfsrfi catheter system; | | RN | | | 20 gauge; 12/15/19 (removed by | | | | | pt); 2029 | | | +--------+ + + + | Chest | 12/14/19; 2; right; lateral; | 12/14/19 0000 by | 12/24/19 1000 by | | Tube | pleural; 28 JAPANESE ANGLED; | Leigh Forte RN | Arnulfo Gudaalupe | | | 12/24/19; 1000 | | [place] Lopez RN | +--------+ + + + | Arteri | 12/14/19; 1231 (created via | 12/14/19 1231 by | 12/15/19 1515 by | | al | procedure documentation); | Sergio Gan MD | John Negrete, | | Line | Chlorhexidine/Isopropyl Alcohol; | | Motion Picture Film Examiner | | | under [place]; Right; radial [...] by | | Tube | mediastinum; 24 german Luke | Leigh Forte RN | Justin [...] | | | | | | [address] [place], [place] | | | | | | [address] | | | | | | | [...]
--- OUTSIDE RECORDS SUMMARY | ~2020-01-31 | XMS | Encounter Summary ---
Demographics + + + | Address | [address] | | | [place] [address] | + + + | Home Phone | | + + + | Preferred Language | Unknown | + + + | Marital Status | Unknown | + + + | Christian Affiliation | Unknown | + + + [...] Team Providers + +------+ + | Care Surveillance Systems Analyst Name | Role | Phone | + [...] + + | 01/13/ | Telephone | [facility] | Harsh Goodman MD | Follow-up(Procedure) | | 2020 | | CARDIOTHORACIC | [address] | (appointment | | | | SURGERY [address] | [address] [place] | confirmation ) | | | | [address] | [address] | | | | | [place], [place] | | | | | | [address] | | | | | | [phone] | | | +--------+ + + + [...] | | | | | | [address] [place], [place] | | | | | | [address] | | | | | | | | +--------+---------+ + + + documented as of this encounter Visit Diagnoses Not on filedocumented in this encounter"
--- OUTSIDE RECORDS SUMMARY | ~2020-01-31 | XMS | Encounter Summary ---
Demographics + + + | Address | [address] | | | [place] [address] | + + + | Home Phone [...] Team Providers + +------+ + | Care Kersey Department Supervisor Name | Role | Phone | + [...] + + | 01/22/ | Office | [facility] | Darío Canales | Complete heart block | | 2020 | Visit | [facility] [place] | MD [address] | ([facility]) (Primary Dx); | | | | [address] | [place] [address], [place] | Sinus tachycardia; | | | | [place] | [place] | Endocarditis, | | | | [address] | [address] | unspecified | | | | [phone] | | chronicity, | | | | [...] VALVE MITRAL; Surgeon: Harsh Goodman MD; Location[place] [facility] [place] CARDIAC VALVE SURGERY 12/08/2019 AVR with # 23 St Ean reagent valve, MVR with # 27 Ezequiel valve. 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 Dr Goodman. PERICARDIUM SURGERY N/A 12/14/2019 Procedure: SUB-XYPHOID PERICARDIAL WINDOW, RIGHT TUBE THORACSTOMY; Surgeon: Harsh Goodman MD; Location: [facility] [place] TRANSESOPHAGEAL ECHOCARDIOGRAM 12/08/2019 EF 55%. [...] LV, 2.6 cm between RV and diaphragm. [facility] MV, AV. History reviewed. No pertinent family [...] AV block. We will continue to [facility] track of his conduction over time. 2) [...] | | | | | | [address] [place], [place] | | | | | | [address] | | | | | | | [...] MD | | | | | | (1217) on 01/23/2020 | | | | | [...]
--- OUTSIDE RECORDS SUMMARY | ~2020-01-31 | XMS | Encounter Summary ---
Demographics + + + | Address | [address] | | | [place] [address] | + + + | Home Phone | | + + + | Preferred Language | Unknown | + + + | Marital Status | Unknown | + + + | Judaism Affiliation | Unknown | + + + | Race | Unknown | + + + | Ethnic Group | Unknown | + + + Author + + + | Author | [facility] | | | and [place] | + + + | Organization | [facility] | | | and [...] Team Providers + +------+ + | Care Cane Flume Feeding Machine Operator Name | Role | Phone | [...] + + | 12/11/ | Telephone | [facility] | Darío Canales | Pre-Op | | 2020 | | CENTER CV INTRA OP | MD [address] | | | | | [address] | [facility] | | | | | [place], [place] | [place], [place] | | | | | [address] | [id number] | | | | | [phone] | | | +--------+ + + + [...] | | | | | | [address] [facility] [place] | | | | | | [address] | | | | | | | | +--------+---------+ + + + documented as of this encounter Visit Diagnoses Not on filedocumented in this encounter"
--- OUTSIDE RECORDS SUMMARY | ~2020-01-31 | XMS | Encounter Summary ---
Demographics + + + | Address | [address] | | | [place] [address] | + + + | Home Phone | | + + + | Preferred Language | Unknown | + + + | Marital Status | Unknown | + + + | Rastafarian Affiliation | Unknown | + + + | Race | Unknown | + + + | Ethnic Group | Unknown | + + + Author + + + | Author | [facility] | | | and [place] | + + + | Organization | [facility] | | [...] Team Providers + +------+ + | Care Salesforce Administrator Name | Role | Phone | + [...] + + | 12/07/ | Anesthesia | [facility] | Zach Moody MD | | | 2020 | [facility] | [address] | | | | | [address]PER[address] | [place] [address] | | | | | [address] | | | | | | [place], [place] | | | | | | [address] | | | | | | [phone] | | | +--------+ + + + [...] Transfusion platelet X 1 bag ( [id number]) | | | 3 | | | | | 1 | | | | | 6 | | | +----+---+ + + | | 2 | Quick Note | Plt x 2nd bag ([id number] [id number]) | | | 3 | | | [...] | | 1; Airway Type: oral, | CHANNEL MARKETING PROGRAM MANAGER | Facilities Maintenance Supervisor | | | endotracheal; Size: 8; Removal: [...] | | | 12/15/19; 0620 | | Facilities Maintenance Supervisor | +--------+ + + + | Arteri [...] | Lumen | Yes; Yes; All; OR; Client Relationship Executive; | | | | | Fransisco; Attending [...] | | | | | | [address] [place], [place] | | | | | | [address] | | | | | | | [...] PM PDT | | | | | [place] 12/02/19 at 0415, With | | | [...]
[~2020-01-31 20:30] MED LIST: INDOMETHACIN25 MG PO
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
[2020-01-31] MEDS ORDERED: WARFARIN SODIUM2 MG PO (20:51)
[2020-01-31] MEDS ORDERED: METOPROLOL SUCC50 MG PO (20:52)
[2020-01-31] MEDS ORDERED: FERROUS SULFAT325 MG PO (20:52)
--- NOTE | 2020-02-01 00:35 | NUR ---
PT REPORT RECIEVED FROM ER ER. PT TRANSPORTED FROM ED TO CCU VIA STRETCHER ON DITCH REPAIRER, WITH IV ABX INFUSING. CARE OF PT ASSUMED AT THIS TIME
--- NOTE | 2020-02-01 01:00 | NUR ---
ADMISSION ASSESSMENT COMPLETED. PT ALERT AND ORIENTED, ANSWERS ALL QUESTIONS APPROPRIATELY. PT COMPLAINS OF 8/10 CHEST PAIN WHICH HE CONTRIBUTES TO HIS COUGHING FITS. PRN PAIN MEDICATION ADMINISTERED. PT COLOR IS PALE. RR IN THE MID 30'S. HR 120-130 AT REST. SECOND IV ESTABLISHED. IV ABX AND FLUIDS INFUSING AT THIS TIME
--- NOTE | 2020-02-01 01:44 | NUR ---
PT COMPLAINS OF NAUSEA AT THIS TIME. PRN MEDICATION ADMINISTERED.
--- NOTE | 2020-02-01 02:45 | NUR ---
PT CONTINUES TO BE SHORT OF BREATH. HEART RATE REMAINS 125-130 AT REST. RR 35-40. PT TRIPODING AND ACCESSORY MUSCLE USE NOTED. PT CONTINUES TO HAVE PAIN IN CHEST FROM COUGHING.
--- NOTE | 2020-02-01 02:49 | NUR ---
PT STOOD AT BEDSIDE TO VOID. HEART RATE REMAINED 120-130. RR INCREASED TO 40 WITH EXERTION. VOIDED 100 MLS OF CONCENTRATED URINE.
--- NOTE | 2020-02-01 02:59 | NUR ---
PT PLACED ON 1 L O2 NC FOR OXYGEN SATURATIONS IN THE HIGH 80'S.
--- NOTE | 2020-02-01 03:30 | NUR ---
PT RESTING WITH EYES CLOSED. HR REMAINS 125-130. RR=28, SPO2 =94 % ON 1 L NC.
--- NOTE | 2020-02-01 04:33 | NUR ---
DR WAN CALLED AND UPDATED ON PTS LOW URINE OUTPUT, TACHYCARDIA, TACHYPNIA AND LOW BLOOD PRESSURES. ORDERS RECIEVED (SEE EMAR).
--- NOTE | 2020-02-01 05:35 | NUR ---
LAB IN ROOM FOR BLOOD DRAW.
--- NOTE | 2020-02-01 06:20 | NUR ---
IN ROOM FOR MEDICATION ADMINISTRATION. PT COMPLAINS OF NAUSEA. PRN MEDICATION GIVEN (SEE EMAR).
--- NOTE | 2020-02-01 07:57 | NUR ---
PT IS SOMULANT AND APPEARS FATIGUED, ABLE TO ANSWER YES AND NO QUESTIONS. PT REPORTS GENERALIZED PAIN TO BE 4/10, STATES THIS IS TOLLERABLE. PT REPORTS SOME NAUSEA. IV SITES ARE INTACT, NO REDNESS OR SWELLING NOTED, FLUIDS AND FLUSHES INFUSE EASILY, PT DENIES PAIN AT EITHER SITE. PT TALKED ON THE PHONE WITH HIS MOM FOR A FEW MINUTES. PT SPEECH IS CLIPPED AND SOFT, SOMETIMES DIFFICULT TO UNDERSTAND. PT IS COOPERATIVE AND POLITE.
--- NOTE | 2020-02-01 08:10 | NUR ---
4 MG IV ZOFRAN GIVEN TO PT FOR REPORTED NAUSEA. WILL CONTINUE TO MONITOR.
--- NOTE | 2020-02-01 08:30 | NUR ---
PT SITTING UP AT THE BEDSIDE, LEANING HEAD ON TABLE. PT DROWSING OFF AND ON IN THIS POSITION. CALLED TO UPDATE ON PT STATUS OF SUSTAINED ELEVATED HR IN 130'S AND PT GENERAL APPEARANCE AFTER FULL ASSESSMENT. DR. WAN ON HIS WAY TO SEE PT.
--- NOTE | 2020-02-01 09:17 | NUR ---
BLADDER SCANNED PT FOR 0 ML OF URINE. ORDERED 1L LR BOLUS OVER ONE HOUR, AND CHEST X-RAY. BOLUS STARTED, WILL CONTINUE TO MONITOR.
--- NOTE | 2020-02-01 10:45 | NUR ---
Went to speak with Rodolfo. He is on Covid precaution. Notified Rn I will call him. They request I wait as he is very ill. HR is 130, RR 60, and BP is low. He is requiring 1:1 care. I will follow up with this patient on Tuesday.
--- NOTE | 2020-02-01 11:14 | NUR ---
BECAUSE OF PRECAUTIONS I AM UNABLE TO VISIT WITH PT AT THIS TIME. WILL WAIT NEEDED
--- NOTE | 2020-02-01 13:35 | NUR ---
pt has left the facility with the life flight crew. full report given, all questions answered, pt sent with iv vanco, iv fluids, and iv mag rider. all personal belongings sent with pt.
--- NOTE | 2020-02-01 14:06 | NUR ---
AT ABOUT 1030 PLACED URINARY HERNANDEZ PER . 20 MG IV LASIX GIVEN. IV SITE IN LEFT WRIST DC'D DUE TO INFILTRATION, NO REDNESS OR SWELLING NOTED, PT REPORTS PAIN WITH FLUSH, DIFFICULT TO FLUSH. DISCUSSED PLAN WITH PT TO HAVE PLACE A CENTRAL LINE FOR NEEDED IV ACCESS. PT IS AGREABLE TO THIS. AT ABOUT 1120 IN ROOM TO DISCUSS CENTRAL LINE PLACEMENT WITH PT. CENTRAL LINE ATTEMPTED IN RT SUBCLAVIAN, NOT SUCESSFUL. RT FEMORAL TRIPAL LUMAN CENTRAL LINE PLACED SUCESSFULLY. PT INITIALLY HAS ANXIETY ATTACK WITH RT SUBCLAVIAN ATTEMPT. 2 MG IV MORPHINE ADMINISTERED AT APPROXIMALTY 1200 PRIOR TO FEMORAL LINE PLACEMENT, PT YADY WELL. CHEST X-RAY DONE TO RULE OUT POSSIBLE PNEUMOTHORAX FROM SUBCLAVIAN ATTEMPT. PT'S MOTHER ARRIVES AT THE BEDSIDE AT APPROXIMALY 1240. SHE AND THE PT ARE UPDATED BY TO THE PLAN FOR TRANSFER TO [facility]. ALL TRANSFER FORMS AND CONSENTS SIGNED BY PT. PT REMAINS AROUSABLE BUT NOTABLY MORE FATIGUED, HOWEVER ABLE TO ANSWER QUESTIONS APPROPRIATLY. HAS GIVEN APPROVAL TO USE RT FEMORAL CENTRAL LINE, BLOOD RETURN OBTAINED IN ALL THREE LUMINS, SITE IS INTACT, DRESSED WITH BIO-PATCH AND SORBA-VIEW DRESSING. AT APPROXIMATLY 1320 LIFE FLIGHT CREW ARRIVES, FULL BEDSIDE REPORT GIVEN, ALL QUESTIONS ANSWERED. AT APPROXIMATLY 1330 PT LEFT ICU WITH LIFE FLIGHT CREW.
--- NOTE | 2020-02-01 14:32 | NUR ---
FULL REPORT GIVEN TO BRIDGET FERNANDEZ AT [facility], [facility]. ALL QUESTIONS ANSWERED.
--- NOTE | 2020-02-02 07:54 | OR ---
[facility] [address] [place], [place] [address] Signed DATE OF OPERATION: 02/01/2020 SURGEON: Sonal Parker MD PREOPERATIVE DIAGNOSES: 1. Lack of peripheral IV access. 2. Pneumonia. 3. Heart valve dehiscence. POSTOPERATIVE DIAGNOSES: 1. Lack of peripheral IV access. 2. Pneumonia. 3. Heart valve dehiscence. PROCEDURE: 1. Attempted placement of right subclavian triple-lumen catheter. 2. Placement of right femoral triple-lumen catheter. ESTIMATED BLOOD LOSS: None. INDICATIONS: Josemanuel is a 34-year-old gentleman, who just in the last few weeks had what sounds like the aortic valve and his mitral valve replaced over to [facility]. He had spent some time in rehab on antibiotics and so forth. He has been home in [place]. He apparently had developed some shortness of breath and came to our emergency room. It was felt that he might have pneumonia. He had been admitted to the Internal Medicine Service. He was to the point of having shortness of breath where he could not lie flat for any significant amount of time. An echocardiogram had been ordered and in the meantime he was down to a 24-gauge peripheral IV in the dorsum of his right hand. I have been asked to come urgently to place a central venous catheter for Josemanuel. He told me he has had all PICC lines previously. However, I can see at least 3 wesley in the right groin, most likely from cardiac catheterization. I explained to Josemanuel, I think we would attempt the right subclavian approach first. If that was unsuccessful and he could tolerate being in the supine position, we could certainly look at the right IJ with our ultrasound. I told him if necessary we certainly could use the right groin and could always move to a new location. I explained to him the difference between a central venous catheter and more peripherally placed PICC line. There is risk of placing these catheters including, but not limited to bleeding, infection, scarring, change in contour of the skin as well as pneumothorax requiring Electronically Signed By: SONAL PARKER MD 02/02/20 0754 PATIENT NAME: JOSEMANUEL WHITE OPERATIVE REPORT DATE OF : 81 REPORT #: [id number] PHYSICIAN: SONAL PARKER MD PCP: BRIGIDA LAMB MD REPORT IS CONFIDENTIAL AND NOT TO BE RELEASED WITHOUT AUTHORIZATION [facility] [address] [place], [place] [address] Signed chest tube placement. He had expressed understanding and wished to proceed. PROCEDURE IN DETAIL: Josemanuel was placed in slight Trendelenburg position in his ICU bed. He had oxygen in place. The entire right neck and chest wall were prepped and draped in the usual sterile fashion. We injected local anesthetic into the right chest wall and underneath the right clavicle. We accessed the subclavian vein on the second pass of the needle with return of very dark nonpulsatile venous blood. I had initially placed the wire catheter in about shelter. There has been no resistance. The tract had been dilated and the triple-lumen catheter was inserted and I had passed the wire just a bit further and he noticed pain in his right ear and sensation of fullness in his neck, so this put him into an anxiety attack with significant shortness of breath and nearly hyperventilated. Consequently, I had removed the wire and the triple-lumen catheter. We gave up on the right subclavian approach. He said he could not tolerate lying down anymore. After a few minutes, we gave him 2 mg of morphine and when he was feeling better, we decided to approach the right groin. I could easily palpate the femoral artery. We prepped and draped the right groin in the usual sterile fashion. Local anesthetic was injected in the right groin. We found the right femoral vein on the second pass of the needle. Again, we had return of very dark nonpulsatile venous blood. This wire had fed without any resistance whatsoever. The tract dilated easily with the appropriate curvature to the dilator. The triple-lumen catheter was inserted up to hub and all 3 ports were able to draw and flush quite nicely with saline. The catheter was held in place with interrupted silk sutures. Dressing was applied per nursing staff. Josemanuel tolerated that much better. We had him sitting in the supine semi-upright position during that time. Our portable chest x-ray is pending to check for a left pneumothorax. In the meantime, arrangements have been made for him to be transferred back over to [facility]. Sonal Parker MD ALB/MODL /[id number] cc: Sonal Parker MD Electronically Signed By: SONAL PARKER MD 02/02/20 0754 PATIENT NAME: JOSEMANUEL WHITE OPERATIVE REPORT DATE OF : 81 REPORT #: [id number] PHYSICIAN: SONAL PARKER MD PCP: BRIGIDA LAMB MD REPORT IS CONFIDENTIAL AND NOT TO BE RELEASED WITHOUT AUTHORIZATION [address] [place], [place] [address] Signed Copies: SONAL PARKER MD ~ Electronically Signed By: SONAL PARKER MD 02/02/20 0754 PATIENT NAME: JOSEMANUEL WHITE OPERATIVE REPORT DATE OF : 81 REPORT #: [id number] PHYSICIAN: SONAL PARKER MD PCP: BRIGIDA LAMB MD REPORT IS CONFIDENTIAL AND NOT TO BE RELEASED WITHOUT AUTHORIZATION
--- NOTE | 2020-02-02 12:26 | EKG ---
[facility] [address] [facility] [place], [place] [address] Signed Sinus tachycardia Left axis deviation Right bundle branch block Abnormal ECG When compared with ECG of 01-DEC-2019 09:50, Right bundle branch block is now present Confirmed by SABRA HERNANDEZ DO ([id number]) on 02/02/2020 12:25:52 PM Electronically Signed By: SABRA HERNANDEZ DO 02/02/20 1226 PATIENT NAME: JOSEMANUEL WHITE Electrocardiogram DATE OF : 81 PHYSICIAN: SABRA HERNANDEZ DO REPORT #: [id number] REPORT IS CONFIDENTIAL AND NOT TO BE RELEASED WITHOUT AUTHORIZATION
== END 2020-02-01 13:35 | disposition short-term general hospital (02) | DRG 314 ==
LOC: ED 20:30 → CCU 02-01 00:12
PROVIDERS: ADMIT Internal Medicine
PROC: 06HY33Z Insertion of Infusion Device into Lower Vein, Percutaneous Approach (ICD-10-PCS; principal; 2020-02-01)
DX: T82.897A Other specified complication of cardiac prosthetic devices, implants and grafts, initial encounter (principal); J18.9 Pneumonia, unspecified organism; K75.2 Nonspecific reactive hepatitis; I35.1 Nonrheumatic aortic (valve) insufficiency; D64.9 Anemia, unspecified; F19.11 Other psychoactive substance abuse, in remission; F17.290 Nicotine dependence, other tobacco product, uncomplicated; R00.0 Tachycardia, unspecified; R34 Anuria and oliguria; Z79.899 Other long term (current) drug therapy; Z88.0 Allergy status to penicillin; Z79.01 Long term (current) use of anticoagulants; Z95.2 Presence of prosthetic heart valve
CPT/HCPCS: 36415; 36600; 71045; 71260; 80053; 82607; 82728; 82746; 82803; 83540; 83605; 83735; 83880; 84466; 85025; 85045; 85610; 87449; 87899; 93005; 93010; 93306; 99285-25; J0692; J0780; J1940; J1956; J2270; J2405; J2550; J3370; J3475; J7030; J7060; J7121; U0002